=== PATIENT | male | born 1950 | race Caucasian/White ===

== ENCOUNTER 2019-05-10 12:16 | Inpatient (IN) | payer MEDICARE ==
[2019-05-10] MEDS ORDERED: VANCOMYCIN IV PER PHARMACY 1 EACH MISC MISCELLANE PRN (12:34)
[2019-05-10] MEDS ORDERED: cefTRIAXone IN SWFI 1,000 MG/10 ML SYRINGE IVP STA (12:34)
[2019-05-10] MEDS ORDERED: VANCOMYCIN 1,750 MG in SODIUM CHLORIDE 0.9% 500 ML 500 ML IVPB STA (12:38)
--- NOTE | 2019-05-10 12:38 | ED ---
General Adult HPI - General Chief complaint: Extremity Injury, Lower Stated complaint: Foot Infection Time Seen by Provider: 05/10/19 12:20 Source: patient, RN notes reviewed, old records reviewed Mode of arrival: ambulatory Limitations: no limitations - History of Present Illness Initial comments: This is a 69-year-old male who has a past medical history significant for diabetes and wound of the left foot which was amputated years ago at the mid foot. Patient comes in today stating his wound has opened up again and the foot and is getting progressively worse his primary medical care doctor sent him in today because he has surrounding cellulitis and he is also worried about osteomyelitis. Patient denies any fever chills per patient denies any other problems today. - Related Data Home Medications Medication Instructions Recorded Confirmed Aspirin 1 tab PO DAILY 05/05/15 05/05/15 glyBURIDE [Diabeta] 1 tab PO DAILY 05/05/15 05/05/15 metFORMIN HCL [Glucophage] 1 tab PO BID 05/05/15 05/05/15 Allergies Allergy/AdvReac Type Severity Reaction Status Date / Time No Known Allergies Allergy Verified 05/10/19 14:38 Review of Systems ROS Statement: Those systems with pertinent positive or pertinent negative responses have been documented in the HPI. ROS Other: All systems not noted in ROS Statement are negative. Past Medical History Past Medical History: Dementia, Hyperlipidemia, Hypertension, Myocardial Infarction ([place]) History of Any Multi-Drug Resistant Organisms: MRSA Date of last positivie culture/infection: L foot MDRO Source:: 2015 Past Surgical History: Appendectomy, Coronary Bypass/CABG, Hernia Repair Additional Past Surgical History / Comment(s): L foot partial amputation Past Psychological History: No Psychological Hx Reported Smoking Status: Former smoker Past Alcohol Use History: None Reported Past Drug Use History: None Reported General Exam - General Exam Comments Initial Comments: GENERAL: Patient is well-developed and well-nourished. Patient is nontoxic and well- hydrated and is in no acute distress. ENT: Neck is soft and supple. No significant lymphadenopathy is noted. Oropharynx is clear. Moist mucous membranes. Neck has full range of motion without eliciting any pain. EYES: The sclera were anicteric and conjunctiva were pink and moist. Extraocular movements were intact and pupils were equal round and reactive to light. Eyelids were unremarkable. PULMONARY: Unlabored respirations. Good breath sounds bilaterally. CARDIOVASCULAR: There is a regular rate and rhythm without any murmurs gallops or rubs. SKIN: Patient has an open wound on the left foot is very malodorous and surrounding cellulitis NEUROLOGIC: Patient is alert and oriented x3. Cranial nerves II through XII are grossly intact. MUSCULOSKELETAL: Amputation of the left midfoot LYMPHATICS: No significant lymphadenopathy is noted PSYCHIATRIC: Normal psychiatric evaluation. Limitations: no limitations Course Vital Signs 05/10/19 12:18 Temperature 97.7 F Pulse Rate 81 Respiratory 18 Rate Blood Pressure 130/78 O2 Sat by Pulse 96 Oximetry Medical Decision Making - Medical Decision Making Patient's x-ray of the foot shows swelling in the soft tissue and osteomyelitis cannot be ruled out. Patient was started on Rocephin and vancomycin in the emergency department. Dr. Castrejon admitted the patient I wrote admitting her seconds in her vancomycin as well as consulted vascular and infectious disease. - Lab Data Result diagrams: 05/10/19 12:44 05/10/19 12:44 Lab Results 05/10/19 05/10/19 05/10/19 Range/Units 12:44 12:44 12:44 WBC 8.5 (3.8-10.6) k/uL RBC 5.18 (4.30-5.90) m/uL Hgb 14.0 (13.0-17.5) gm/dL Hct 44.5 (39.0-53.0) % MCV 85.9 (80.0-100.0) fL MCH 27.1 (25.0-35.0) pg MCHC 31.5 (31.0-37.0) g/dL RDW 13.6 (11.5-15.5) % Plt Count 347 (150-450) k/uL Neutrophils % (Manual) 80 % Lymphocytes % (Manual) 7 % Monocytes % (Manual) 11 % Eosinophils % (Manual) 1 % Metamyelocytes % 2 % Myelocytes % 1 % Neutrophils # (Manual) 6.80 (1.3-7.7) k/uL Lymphocytes # (Manual) 0.60 L (1.0-4.8) k/uL Monocytes # (Manual) 0.94 (0-1.0) k/uL Eosinophils # (Manual) 0.09 (0-0.7) k/uL Metamyelocytes # (Man) 0.17 H (0) k/uL Myelocytes # (Manual) 0.09 H (0) k/uL Nucleated RBCs 0 (0-0) /100 WBC Manual Slide Review Performed Hypochromasia Slight Poikilocytosis (manual Present Sodium 136 L (137-145) mmol/L Potassium 4.7 (3.5-5.1) mmol/L Chloride 106 (98-107) mmol/L Carbon Dioxide 18 L (22-30) mmol/L Anion Gap 12 mmol/L BUN 21 H (9-20) mg/dL Creatinine 0.73 (0.66-1.25) mg/dL Est GFR (CKD-EPI)AfAm >90 (>60 ml/min/1.73 sqM) Est GFR (CKD-EPI)NonAf >90 (>60 ml/min/1.73 sqM) Glucose 187 H (74-99) mg/dL Plasma Lactic Acid Christos 1.5 (0.7-2.0) mmol/L Calcium 9.6 (8.4-10.2) mg/dL Total Bilirubin 0.4 (0.2-1.3) mg/dL AST 35 (17-59) U/L ALT 42 (4-49) U/L Alkaline Phosphatase 104 (38-126) U/L Total Protein 6.9 (6.3-8.2) g/dL Albumin 3.3 L (3.5-5.0) g/dL Disposition Clinical Impression: Infected wound, Osteomyelitis of foot Disposition: ADMITTED IP TO THIS HOSP Referrals: Marquis Marr MD [Primary Care Provider] - 1-2 days Time of Disposition: 14:45
[2019-05-10 13:28] LABS: HCT 44.5 % (39.0-53.0); Hypochromasia Slight; MCH 27.1 pg (25.0-35.0); MCHC 31.5 g/dL (31.0-37.0); MCV 85.9 fL (80.0-100.0); Mean Platelet Volume 8.6; Platelet Count 347 k/uL (150-450); RBC 5.18 m/uL (4.30-5.90); RDW 13.6 % (11.5-15.5); WBC 8.5 k/uL (3.8-10.6)
[2019-05-10 13:43] LABS: ALT 42 U/L (4-49); AST 35 U/L (17-59); African American GFR (CKD) >90 (>60 ml/min/1.73 sqM); Albumin 3.3 g/dL (3.5-5.0); Alkaline Phosphatase 104 U/L (38-126); Anion Gap 12 mmol/L; Blood Urea Nitrogen 21 mg/dL (9-20); Calcium 9.6 mg/dL (8.4-10.2); Carbon Dioxide 18 mmol/L (22-30); Chloride 106 mmol/L (98-107); Glucose 187 mg/dL (74-99); Non-African American GFR(CKD) >90 (>60 ml/min/1.73 sqM); Potassium 4.7 mmol/L (3.5-5.1); Sodium 136 mmol/L (137-145); Total Bilirubin 0.4 mg/dL (0.2-1.3); Total Protein 6.9 g/dL (6.3-8.2)
[2019-05-10 13:51] LABS: Eosinophils # (M) 0.09 k/uL (0-0.7); Metamyelocytes # (M) 0.17 k/uL (0); Metamyelocytes % 2 %; Monocytes # (M) 0.94 k/uL (0-1.0); Myelocytes # (M) 0.09 k/uL (0); Myelocytes % 1 %; Neutrophils % (M) 80 %; Nucleated Red Blood Cells 0 /100 WBC (0-0); Total Cells Counted 200
[2019-05-10 13:52] LABS: Poikilocytosis (M) Present
--- NOTE | 2019-05-10 13:52 | XR ---
Left foot HISTORY: Infection 3 views of the left foot correlated to prior exam 05/05/2015 There is been interval transmetatarsal amputation in the left foot, bone and soft tissue deformities are present. There is lucency in the soft tissues as well as surgical clip. No evident periostitis. S oft tissue calcification at the leg distally likely due to vascular etiology. There is a plantar calc aneal spur. 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 Focal calcifications within the soft tissues ar e noted at the level of the amputation. IMPRESSION: Correlate for cellulitis, difficult to exclude osteomyelitis, myositis, abscess. Consider vascular surgery consult.
[2019-05-10] MEDS ORDERED: SODIUM CHLORIDE 0.9% 1,000 ML IV ONE (14:45)
[2019-05-10 17:18] LABS: Glucose,Whole Blood 138 mg/dL (75-99)
[2019-05-10] MEDS: AMPICILLIN-SULBACTAM 3 GM in SODIUM CHLORIDE 0.9% 100 ML IVPB SCH (17:52)
--- NOTE | 2019-05-10 19:53 | CONS ---
DATE OF CONSULTATION: 05/10/2019 This is a 69-year-old gentleman. I was consulted for evaluation of left foot post transmetatarsal amputation which was done 4 years ago at [facility]. The patient has had an open wound to the plantar aspect of the stump with a large wound and exposed muscles with drainage of pus since February. He has been taking care of this wound at home by himself. MEDICAL HISTORY: History of diabetes. Bladder cancer; had chemoradiation. The patient also has a history of hypertension. SURGICAL HISTORY: Patient had a transmetatarsal amputation done of the left foot at [facility] about 4 years ago. He also had a CABG done in the past. PHYSICAL EXAMINATION: The patient was seen in his room. The patient was alert and oriented to time and place. NECK: Supple. No bruit appreciated. CHEST: Clear on auscultation. ABDOMEN: Soft. Femoral pulses present. Popliteals palpable. Posterior tibial pulses by the Doppler. The patient has a large wound on the plantar aspect of the left foot stump with exposed bone, and also the muscles are exposed, with drainage of pus. X-ray of the foot shows soft tissue swelling, and osteomyelitis cannot be ruled out. The patient is on IV antibiotic, under the care of Infectious Disease. I had a long discussion with this gentleman. The patient has a large wound on the plantar aspect of the foot which is not salvageable. Options were discussed. Most likely he will benefit from below-knee amputation and artificial prosthesis. Patient does not want to go this route. I will discuss with Dr. Thomas and Dr. Castrejon. MMODL / IJN: [id number] / MTDD
[2019-05-10] MEDS: metFORMIN 500 MG TAB PO SCH (21:04)
[2019-05-10] MEDS: ATORVASTATIN 40 MG TAB PO SCH (21:05)
[2019-05-10] MEDS: METOPROLOL TARTRATE 50 MG TAB PO SCH (21:05)
[2019-05-10] MEDS: ENOXAPARIN 40 MG/0.4 ML SYRINGE SQ SCH (21:07)
[2019-05-10] MEDS: VANCOMYCIN 1,500 MG in SODIUM CHLORIDE 0.9% 250 ML IVPB SCH (21:21)
--- NOTE | 2019-05-10 22:03 | P.HPIM ---
History of Present Illness H&P Date: 05/10/19 Chief Complaint: Left foot wound History of presenting complaint: This is a pleasant 69-year-old patient of Dr. marr. Chronic stable medical conditions include diabetes, hypertension, hyperlipidemia, coronary artery disease. Patient will work 25 years ago underwent left distal foot amputation what appeared to be for ischemia. Did also has a follow-up surgery in the same. Had been doing well patient does follow with Dr. Marr and for few weeks started having some infection in the stump. He was told to use peroxide dressings. Did improve some. For a week patient started having a fever and the stump started draining pus there is no pain. Decided to come to the ER. Consultations made to vascular surgery and infectious disease. Review of systems: GEN.: None EYES: None HEENT: None NECK: None RESPIRATORY: None CARDIOVASCULAR: None GASTROINTESTINAL: None GENITOURINARY: Chronic urinary frequency MUSCULOSKELETAL: None LYMPHATICS: None HEMATOLOGICAL: None PSYCHIATRY: None NEUROLOGICAL: Decreased sensation distally Past medical history to include: Diabetes, hypertension, hyperlipidemic, urinary frequency, coronary artery disease Social history: , retired this. Did smoke in the past Family history: Reviewed, noncontributory to presentation Physical examination: VITAL SIGNS: 97.7, 81, 18, 130/78, 96% on room air GENERAL: BMI 30.1, laying in bed, slightly anxious. EYES: Pupils equal. Conjunctiva normal. HEENT: External appearance of nose and ears normal, oral cavity grossly normal. NECK: JVD not raised; masses not palpable. HEART: First and second heart sounds are normal; no edema. LUNGS: Respiratory rate normal; clear to auscultation. ABDOMEN: Soft, nontender, liver spleen not palpable, no masses palpable. PSYCH: Alert and oriented x3; mood and affect normal. EXTREMITY: Wound of the left foot stump pictures in the chart, NEUROLOGICAL: Cranial nerves grossly intact; no facial asymmetry, power and sensation grossly intact. LYMPHATICS: No lymph nodes palpable in the axilla and neck INVESTIGATIONS, reviewed in the clinical context: White count 8.5 hemoglobin 14 platelets 347 potassium 4.7 creatinine 0.73 Assessment: -Left foot distal infection of the stump. Bone marrow exposed and tendons. This will be very difficult to treat medically. Consider osteomyelitis -Diabetes mellitus type 2 on oral hypoglycemic -Essential hypertension -Hyperlipidemia -Coronary artery disease history of bypass -Chronic urinary frequency from bladder dysfunction Plan: Consultations made to infectious disease and vascular surgery. Did discuss with Dr. Nath from vascular surgery. His opinion is amputation will be the only resort as conservative management will not be good enough for the wound to heal. We'll await input from ID. Patient at this point does not want to talk about any amputation. Accu-Cheks will be followed. Other home medications to be resumed. Patient started on IV Unasyn and vancomycin Past Medical History Past Medical History: Dementia, Diabetes Mellitus, Hyperlipidemia, Hypertension, Myocardial Infarction ([place]) Additional Past Medical History / Comment(s): bladder CA Last Myocardial Infarction Date:: Mar 2004 History of Any Multi-Drug Resistant Organisms: MRSA Date of last positivie culture/infection: L foot MDRO Source:: 2015 Past Surgical History: Appendectomy, Coronary Bypass/CABG, Hernia Repair Additional Past Surgical History / Comment(s): L foot partial amputation Past Psychological History: No Psychological Hx Reported Smoking Status: Former smoker Past Alcohol Use History: None Reported Past Drug Use History: None Reported Medications and Allergies Home Medications Medication Instructions Recorded Confirmed Type Aspirin 1 tab PO DAILY 05/05/15 05/10/19 History Atorvastatin [Lipitor] 40 mg PO HS 05/10/19 05/10/19 History Cinnamon Bark [Cinnamon] 1,000 mg PO BID 05/10/19 05/10/19 History Empagliflozin/Linagliptin 1 tab PO DAILY 05/10/19 05/10/19 History [Glyxambi 25 mg-5 mg Tablet] Famotidine 40 mg PO DAILY 05/10/19 05/10/19 History Isosorbide Mononitrate ER [Imdur] 30 mg PO DAILY 05/10/19 05/10/19 History Lisinopril [Zestril] 10 mg PO DAILY 05/10/19 05/10/19 History Metoprolol Tartrate [Lopressor] 50 mg PO BID 05/10/19 05/10/19 History amLODIPine [Norvasc] 10 mg PO DAILY 05/10/19 05/10/19 History glipiZIDE [Glucotrol] 5 mg PO AC-BRKFST 05/10/19 05/10/19 History metFORMIN HCL 1,000 mg PO BID 05/10/19 05/10/19 History Allergies Allergy/AdvReac Type Severity Reaction Status Date / Time No Known Allergies Allergy Verified 05/10/19 14:38 Physical Exam Vitals: Vital Signs Temp Pulse Pulse Resp BP BP Pulse Ox 05/10/19 16:08 97.7 F 78 18 130/65 96 05/10/19 15:24 20 05/10/19 15:00 78 18 105/58 97 05/10/19 14:00 76 18 104/56 97 05/10/19 12:18 97.7 F 81 18 130/78 96 Intake and Output 05/10/19 05/10/19 05/10/19 06:59 14:59 22:59 Other: Voiding Method Toilet Weight 95.254 kg 95.254 kg Results CBC & Chem 7: 05/10/19 12:44 05/10/19 12:44 Labs: Abnormal Lab Results - Last 24 Hours (Table) 05/10/19 05/10/19 05/10/19 Range/Units 12:44 12:44 17:16 Lymphocytes # (Manual) 0.60 L (1.0-4.8) k/uL Metamyelocytes # (Man) 0.17 H (0) k/uL Myelocytes # (Manual) 0.09 H (0) k/uL Sodium 136 L (137-145) mmol/L Carbon Dioxide 18 L (22-30) mmol/L BUN 21 H (9-20) mg/dL Glucose 187 H (74-99) mg/dL POC Glucose (mg/dL) 138 H (75-99) mg/dL Albumin 3.3 L (3.5-5.0) g/dL
--- NOTE | 2019-05-10 23:43 | P.CONS ---
History of Present Illness - Reason for Consult Consult date: 05/10/19 left diabetic foot infection Requesting physician: Mo Castrejon - Chief Complaint non healing wound to left foot x months - History of Present Illness Patient is a 69-year-old male with a past medical his significant for diabetes mellitus in this patient who did have a previous history of diabetic foot infection requiring left transmetatarsal amputation at [facility] patient apparently did develop a callus on the plantar aspect of his left foot that apparently fell off and the patient did develop a wound on the plantar aspect of the left foot that happened in February 2018 and the patient has been taking care of his wound at home however he was noticed to have a significant swelling and redness and some foul-smelling drainage patient was ev aluated by his primary care physician who sent the patient to the ER with concern for underlying osteomyelitis patient to have diabetic neuropathy has denies pain to the left foot wound area patient, patient was afebrile on presentation to the hospital his white count was normal patient did have x-rays of the left foot with concern for cellulitis abscess osteomyelitis not entirely excluded patient has been started on vancomycin he was admitted to the hospital infectious disease was consulted for further recommendation regarding antibiotic therapy Review of Systems Positive point has been mentioned in HPI rest of the systems are negative Past Medical History Past Medical History: Dementia, Diabetes Mellitus, Hyperlipidemia, Hypertension, Myocardial Infarction ([place]) Additional Past Medical History / Comment(s): bladder CA Last Myocardial Infarction Date:: Mar 2004 History of Any Multi-Drug Resistant Organisms: MRSA Year Discovered:: L foot MDRO Source:: 2015 Past Surgical History: Appendectomy, Coronary Bypass/CABG, Hernia Repair Additional Past Surgical History / Comment(s): L foot partial amputation Past Psychological History: No Psychological Hx Reported Smoking Status: Former smoker Past Alcohol Use History: None Reported Past Drug Use History: None Reported Medications and Allergies Home Medications Medication Instructions Recorded Confirmed Type Aspirin 1 tab PO DAILY 05/05/15 05/10/19 History Atorvastatin [Lipitor] 40 mg PO HS 05/10/19 05/10/19 History Cinnamon Bark [Cinnamon] 1,000 mg PO BID 05/10/19 05/10/19 History Empagliflozin/Linagliptin 1 tab PO DAILY 05/10/19 05/10/19 History [Glyxambi 25 mg-5 mg Tablet] Famotidine 40 mg PO DAILY 05/10/19 05/10/19 History Isosorbide Mononitrate ER [Imdur] 30 mg PO DAILY 05/10/19 05/10/19 History Lisinopril [Zestril] 10 mg PO DAILY 05/10/19 05/10/19 History Metoprolol Tartrate [Lopressor] 50 mg PO BID 05/10/19 05/10/19 History amLODIPine [Norvasc] 10 mg PO DAILY 05/10/19 05/10/19 History glipiZIDE [Glucotrol] 5 mg PO AC-BRKFST 05/10/19 05/10/19 History metFORMIN HCL 1,000 mg PO BID 05/10/19 05/10/19 History Allergies Allergy/AdvReac Type Severity Reaction Status Date / Time No Known Allergies Allergy Verified 05/10/19 14:38 Physical Exam Vitals: Vital Signs Temp Pulse Pulse Resp BP BP Pulse Ox 05/10/19 16:08 97.7 F 78 18 130/65 96 05/10/19 15:24 20 05/10/19 15:00 78 18 105/58 97 05/10/19 14:00 76 18 104/56 97 05/10/19 12:18 97.7 F 81 18 130/78 96 Intake and Output 05/10/19 05/10/19 05/10/19 06:59 14:59 22:59 Other: Weight 95.254 kg 95.254 kg GENERAL DESCRIPTION: Elderly male lying in bed, no distress. No tachypnea or accessory muscle of respiration use. HEENT: Shows Pallor , no scleral icterus. Oral mucous membrane is dry. NECK: Trachea central, no thyromegaly. LUNGS: Unlabored breathing. Clear to auscultation anteriorly. No wheeze or crackle. HEART: S1, S2, regular rate and rhythm. ABDOMEN: Soft, no tenderness , guarding or rigidity EXTREMITIES: Left foot plantar aspect at the site of his transmetatarsal deep wound with slough tissue foul-smelling drainage with surrounding swelling and redness. SKIN: No rash, no masses palpable. NEUROLOGICAL: The patient is awake, alert, oriented x3, mood and affect normal. Results CBC & Chem 7: 05/10/19 12:44 05/10/19 12:44 Labs: Abnormal Lab Results - Last 24 Hours (Table) 05/10/19 05/10/19 Range/Units 12:44 12:44 Lymphocytes # (Manual) 0.60 L (1.0-4.8) k/uL Metamyelocytes # (Man) 0.17 H (0) k/uL Myelocytes # (Manual) 0.09 H (0) k/uL Sodium 136 L (137-145) mmol/L Carbon Dioxide 18 L (22-30) mmol/L BUN 21 H (9-20) mg/dL Glucose 187 H (74-99) mg/dL Albumin 3.3 L (3.5-5.0) g/dL Assessment and Plan Assessment: 1-patient with extensive left diabetic foot infection in this patient with a previous history of transmetatarsal amputation of the left foot because of diabetic foot infection now presenting with a wound that has been there for more than 2 months now now with significant worsening with exposure of the muscle and significant slough tissue will need to cover for both gram-positive as well as gram-negative bacteria (1) Diabetic foot Current Visit: Yes Status: Acute Code(s): E11.8 - TYPE 2 DIABETES MELLITUS WITH UNSPECIFIED COMPLICATIONS SNOMED Code(s): 531379610 (2) Infected wound Current Visit: Yes Status: Acute Code(s): T14.8XXA - OTHER INJURY OF UNSPECIFIED BODY REGION, INITIAL ENCOUNTER; L08.9 - LOCAL INFECTION OF THE SKIN AND SUBCUTANEOUS TISSUE, UNSP SNOMED Code(s): 80680772 (3) Osteomyelitis of foot Current Visit: Yes Status: Acute Code(s): M86.9 - OSTEOMYELITIS, UNSPECIFIED SNOMED Code(s): 58969886 Plan: 1-vascular surgery evaluation for debridement of this wound and deep culture, who have suggested below the knee amputation with the patient is refusing 2-vancomycin pharmacy to dose her with a target trough of 15 while watching her kidney function and Vanco trough closely. 3-Unasyn 3 g every 6 hours 4-local wound care with meta honey followed by moist dressing We will follow on clinical condition and cultures to further adjust medication if needed Thank you for this consultation we will follow the patient along with you Time with Patient: Greater than 30
[2019-05-11] MEDS: AMPICILLIN-SULBACTAM 3 GM in SODIUM CHLORIDE 0.9% 100 ML IVPB SCH ×5 (00:13→23:03)
[2019-05-11] MEDS: VANCOMYCIN 1,500 MG in SODIUM CHLORIDE 0.9% 250 ML IVPB SCH ×3 (05:40→20:52)
[2019-05-11 07:01] LABS: Glucose,Whole Blood 130 mg/dL (75-99)
[2019-05-11] MEDS: metFORMIN 500 MG TAB PO SCH ×2 (07:47→17:18)
[2019-05-11] MEDS: glipiZIDE 5 MG TAB PO SCH (07:47)
[2019-05-11] MEDS: EMPAGLIFLOZIN PO SCH (07:48)
[2019-05-11] MEDS: ENOXAPARIN 40 MG/0.4 ML SYRINGE SQ SCH (07:48)
[2019-05-11] MEDS: amLODIPine 10 MG TAB PO SCH (07:48)
[2019-05-11] MEDS: LISINOPRIL 10 MG TAB PO SCH (07:48)
[2019-05-11] MEDS: ASPIRIN 81 MG PO SCH (07:48)
[2019-05-11] MEDS: ISOSORBIDE MONONITRATE ER 30 MG TAB.ER.24H PO SCH (07:48)
[2019-05-11] MEDS: LINAGLIPTIN PO SCH (07:48)
[2019-05-11] MEDS: FAMOTIDINE 20 MG TAB PO SCH (07:48)
[2019-05-11] MEDS: METOPROLOL TARTRATE 50 MG TAB PO SCH ×3 (07:49→20:52)
[2019-05-11 11:46] LABS: Glucose,Whole Blood 133 mg/dL (75-99)
[2019-05-11 16:37] LABS: Glucose,Whole Blood 132 mg/dL (75-99)
--- NOTE | 2019-05-11 20:03 | P.PN ---
Progress Note - Text Progress Note Date: 05/11/19 Chief Complaint: Left foot wound History of presenting complaint: This is a pleasant 69-year-old patient of Dr. marr. Chronic stable medical conditions include diabetes, hypertension, hyperlipidemia, coronary artery disease. Patient will work 25 years ago underwent left distal foot amputation what appeared to be for ischemia. Did also has a follow-up surgery in the same. Had been doing well patient does follow with Dr. Marr and for few weeks started having some infection in the stump. He was told to use peroxide dressings. Did improve some. For a week patient started having a fever and the stump started draining pus there is no pain. Decided to come to the ER. Consultations made to vascular surgery and infectious disease. Admitted with-acute osteomyelitis of the left foot stump, and a diabetic foot, surrounding cellulitis. Was recommended amputation by surgery but patient refused. Started on vancomycin and IV Unasyn. Local med= honey treatment. Today-laying in bed. No new issues. Debridement scheduled for tomorrow. Getting IV antibiotics. Tolerated diet. Had a bowel movement. Review of systems: Was done for constitutional, cardiovascular, GI, pulmonary. relevant finding as above Active Medications Amlodipine Besylate (Norvasc) 10 mg PO DAILY [facility] Last Admin: 05/11/19 07:48 Dose: Not Given Documented by: Aspirin (Aspirin) 81 mg PO DAILY [facility] Last Admin: 05/11/19 07:48 Dose: Not Given Documented by: Atorvastatin Calcium (Lipitor) 40 mg PO HS [facility] Last Admin: 05/10/19 21:05 Dose: 40 mg Documented by: Enoxaparin Sodium (Lovenox) 40 mg SQ DAILY [facility] Last Admin: 05/11/19 07:48 Dose: Not Given Documented by: Famotidine (Pepcid) 40 mg PO DAILY [facility] Last Admin: 05/11/19 07:48 Dose: Not Given Documented by: Glipizide (Glucotrol) 5 mg PO -BRKFST [facility] Last Admin: 05/11/19 07:47 Dose: Not Given Documented by: Vancomycin HCl 1,500 mg/ (Sodium Chloride) 250 mls @ 125 mls/hr IVPB Q8H [facility] Last Admin: 05/11/19 14:28 Dose: 125 mls/hr Documented by: Ampicillin Sodium/Sulbactam (Sodium 3 gm/ Sodium Chloride) 100 mls @ 200 mls/hr IVPB Q6HR [facility] Last Admin: 05/11/19 17:18 Dose: 200 mls/hr Documented by: Insulin Aspart (Novolog) 0 unit SQ AC-TID [facility]; Protocol Isosorbide Mononitrate (Imdur) 30 mg PO DAILY [facility] Last Admin: 05/11/19 07:48 Dose: Not Given Documented by: Lisinopril (Zestril) 10 mg PO DAILY [facility] Last Admin: 05/11/19 07:48 Dose: Not Given Documented by: Metformin HCl (Glucophage) 1,000 mg PO BID-W/MEALS [facility] Last Admin: 05/11/19 17:18 Dose: 1,000 mg Documented by: Metoprolol Tartrate (Lopressor) 50 mg PO BID [facility] Last Admin: 05/11/19 10:03 Dose: 50 mg Documented by: Miscellaneous Information (Vancomycin Trough Due) 0 each MISCELLANE DIRECTED ONE Stop: 05/12/19 05:01 Non-Formulary Medication (Empagliflozin/Linagliptin [Glyxambi 25 Mg-5 Mg Tablet]) 1 tab PO DAILY [facility] Last Admin: 05/11/19 07:48 Dose: Not Given Documented by: Physical examination: VITAL SIGNS: 98.1, 76, 18, 131/67, 96% on room air GENERAL: BMI 30.1, laying in bed, comfortable EYES: Pupils equal. Conjunctiva normal. HEENT: External appearance of nose and ears normal, oral cavity grossly normal. NECK: JVD not raised; masses not palpable. HEART: First and second heart sounds are normal; no edema. LUNGS: Respiratory rate normal; clear to auscultation. ABDOMEN: Soft, nontender, liver spleen not palpable, no masses palpable. PSYCH: Alert and oriented x3; mood and affect normal. EXTREMITY: Wound of the left foot stump pictures in the chart, INVESTIGATIONS, reviewed in the clinical context: Accu-Cheks noted Previous testing White count 8.5 hemoglobin 14 platelets 347 potassium 4.7 creatinine 0.73 Assessment: -Acute osteomyelitis-Left foot distal infection of the stump. Bone tendons exposed.-Patient refused amputation -Diabetes mellitus type 2 on oral hypoglycemic -Essential hypertension -Hyperlipidemia -Coronary artery disease history of bypass -Chronic urinary frequency from bladder dysfunction Plan: Care was discussed with the patient. Patient is on IV Unasyn and vancomycin. Local treatment with med honey. Debridement tomorrow.
[2019-05-11] MEDS: ATORVASTATIN 40 MG TAB PO SCH (20:52)
[2019-05-11] MEDS: SODIUM BICARBONATE TAB 650 MG TAB PO SCH (20:53)
--- NOTE | 2019-05-11 20:56 | PN ---
PROGRESS NOTE DATE OF SERVICE: 05/11/2019 REASON FOR FOLLOWUP: Left diabetic foot infection. INTERVAL HISTORY: The patient is currently afebrile. The patient has been breathing comfortably. Denies having any chest pain or cough. No nausea. No vomiting. No abdominal pain or pain to the left foot area. PHYSICAL EXAMINATION: Blood pressure is 131/67 with a pulse of 76, temperature 98.1. He is 96% on room air. General description is an elderly male lying in bed in no distress. RESPIRATORY SYSTEM: Unlabored breathing. Clear to auscultation anteriorly. HEART: S1, S2. Regular rate and rhythm. ABDOMEN: Soft. No tenderness. Left foot is currently dressed up. No obvious drainage on the dressing. LABS: Hemoglobin is 14, white count of 8.5. BUN of 21, creatinine 0.73. DIAGNOSTIC IMPRESSION AND PLAN: Patient with left diabetic foot infection with concern for underlying osteomyelitis. The patient is currently covered with Unasyn and vancomycin; to continue while waiting for surgical debridement and deep cultures. Monitor his clinical course closely. MMODL / IJN: [id number] /
[2019-05-11] MEDS: INSULIN ASPART (NovoLOG) 100 UNIT/ML VIAL SQ SCH (21:02)
[2019-05-11 21:03] LABS: Glucose,Whole Blood 176 mg/dL (75-99)
[2019-05-12 04:48] LABS: HCT 40.1 % (39.0-53.0); HGB 12.6 gm/dL (13.0-17.5); Hypochromasia Slight; MCHC 31.4 g/dL (31.0-37.0); MCV 86.2 fL (80.0-100.0); Mean Platelet Volume 8.4; Platelet Count 273 k/uL (150-450); RBC 4.65 m/uL (4.30-5.90); RDW 13.6 % (11.5-15.5); WBC 8.1 k/uL (3.8-10.6)
[2019-05-12 04:59] LABS: African American GFR (CKD) >90 (>60 ml/min/1.73 sqM); Anion Gap 7 mmol/L; Blood Urea Nitrogen 12 mg/dL (9-20); Calcium 8.4 mg/dL (8.4-10.2); Carbon Dioxide 20 mmol/L (22-30); Chloride 108 mmol/L (98-107); Glucose 137 mg/dL (74-99); Non-African American GFR(CKD) >90 (>60 ml/min/1.73 sqM); Potassium 3.8 mmol/L (3.5-5.1); Sodium 135 mmol/L (137-145)
[2019-05-12] MEDS ORDERED: VANCOMYCIN TROUGH DUE 1 EACH MISC MISCELLANE ONE (05:00)
[2019-05-12] MEDS: AMPICILLIN-SULBACTAM 3 GM in SODIUM CHLORIDE 0.9% 100 ML IVPB SCH ×3 (05:06→17:06)
[2019-05-12] MEDS: VANCOMYCIN 1,500 MG in SODIUM CHLORIDE 0.9% 250 ML IVPB SCH ×2 (05:42→14:45)
[2019-05-12 06:58] LABS: Glucose,Whole Blood 128 mg/dL (75-99)
[2019-05-12] MEDS: INSULIN ASPART (NovoLOG) 100 UNIT/ML VIAL SQ SCH ×3 (07:02→17:11)
[2019-05-12] MEDS: LISINOPRIL 10 MG TAB PO SCH (08:24)
[2019-05-12] MEDS: ISOSORBIDE MONONITRATE ER 30 MG TAB.ER.24H PO SCH (08:24)
[2019-05-12] MEDS: amLODIPine 10 MG TAB PO SCH (08:24)
[2019-05-12] MEDS: METOPROLOL TARTRATE 50 MG TAB PO SCH ×2 (08:25→20:19)
[2019-05-12] MEDS: metFORMIN 500 MG TAB PO SCH ×2 (08:27→17:06)
[2019-05-12] MEDS: glipiZIDE 5 MG TAB PO SCH (08:27)
[2019-05-12] MEDS: SODIUM BICARBONATE TAB 650 MG TAB PO SCH ×3 (08:28→20:19)
[2019-05-12] MEDS: ENOXAPARIN 40 MG/0.4 ML SYRINGE SQ SCH (08:28)
[2019-05-12] MEDS: EMPAGLIFLOZIN PO SCH (08:28)
[2019-05-12] MEDS: FAMOTIDINE 20 MG TAB PO SCH (08:28)
[2019-05-12] MEDS: LINAGLIPTIN PO SCH (08:28)
[2019-05-12] MEDS: ASPIRIN 81 MG PO SCH (08:28)
[2019-05-12 11:42] LABS: Glucose,Whole Blood 125 mg/dL (75-99)
[2019-05-12] MEDS ORDERED: IV FLUID CONTINUATION 700 ML IV ONE (12:43)
[2019-05-12] MEDS ORDERED: ONDANSETRON 4 MG/2 ML VIAL IVP ONE (12:52)
[2019-05-12] MEDS ORDERED: PROPOFOL 10 MG/ML 20 ML VIAL IV ONE (13:16)
[2019-05-12] MEDS ORDERED: fentaNYL (PF) 50 MCG/ML 2 ML AMP ONE (13:16)
[2019-05-12] MEDS ORDERED: MIDAZOLAM 2 MG/2 ML VIAL ONE (13:16)
[2019-05-12] MEDS ORDERED: KETAMINE 10 MG/ML 20 ML VIAL ONE (13:16)
[2019-05-12] MEDS ORDERED: LIDOCAINE 1% INJ 10MG/ML (20 ML MDV) SQ ONE (13:26)
[2019-05-12] MEDS ORDERED: SODIUM CHLORIDE 0.9% 500 ML 500 ML IV ONE (13:42)
--- NOTE | 2019-05-12 14:09 | PCN ---
PROCEDURE NOTE PREOPERATIVE DIAGNOSIS: Chronic wound, left foot, post transmetatarsal amputation plantar aspect. Measurement is 5 x 4 x 1 cm. PROCEDURE: This patient had a in the past. Patient had multiple surgeries done at [facility]. Patient has been admitted with chronic wound left foot plantar aspect with some cellulitis noted on the dorsum aspect of the foot. We had a discussion and options were discussed, below-knee amputation versus wound debridement and local wound care. The patient wants to go for local wound care. The patient brought to the operating room, left transmetatarsal foot was placed in supine position and prepped and drapes were applied in a sterile manner. IV sedation and 1% lidocaine plain infiltrated in the wound area. Using sharp knife, there was some devitalized tissue which was excised with sharp knife down to subcutaneous tissue. All the devitalized tissue was removed. There was some bleeding points which were electrocoagulated. After that, we irrigated the wound with peroxide and saline. Hydrofera Blue was applied to the wound. Dressing applied. Patient tolerated the procedure well. PLAN: Patient will go back to the floor. We will change the dressing every 48 hours. Prognosis is guarded. Patient understands. MMODL / IJN: [id number] /
--- NOTE | 2019-05-12 14:09 | P.PN ---
Progress Note - Text Progress Note Date: 05/12/19 Chief Complaint: Left foot wound History of presenting complaint: This is a pleasant 69-year-old patient of Dr. marr. Chronic stable medical conditions include diabetes, hypertension, hyperlipidemia, coronary artery disease. Patient will work 25 years ago underwent left distal foot amputation what appeared to be for ischemia. Did also has a follow-up surgery in the same. Had been doing well patient does follow with Dr. Marr and for few weeks started having some infection in the stump. He was told to use peroxide dressings. Did improve some. For a week patient started having a fever and the stump started draining pus there is no pain. Decided to come to the ER. Consultations made to vascular surgery and infectious disease. Admitted with-acute osteomyelitis of the left foot stump, and a diabetic foot, surrounding cellulitis. Was recommended amputation by surgery but patient refused. Started on vancomycin and IV Unasyn. Local med= honey treatment. Today-no new issues. Pending debridement this afternoon. Getting antibiotics. Review of systems: Was done for constitutional, cardiovascular, GI, pulmonary. relevant finding as above Active Medications Amlodipine Besylate (Norvasc) 10 mg PO DAILY [facility] Last Admin: 05/12/19 08:24 Dose: 10 mg Documented by: Aspirin (Aspirin) 81 mg PO DAILY [facility] Last Admin: 05/12/19 08:28 Dose: Not Given Documented by: Atorvastatin Calcium (Lipitor) 40 mg PO HS [facility] Last Admin: 05/11/19 20:52 Dose: 40 mg Documented by: Enoxaparin Sodium (Lovenox) 40 mg SQ DAILY [facility] Last Admin: 05/12/19 08:28 Dose: Not Given Documented by: Famotidine (Pepcid) 40 mg PO DAILY [facility] Last Admin: 05/12/19 08:28 Dose: Not Given Documented by: Glipizide (Glucotrol) 5 mg PO AC-BRKFST [facility] Last Admin: 05/12/19 08:27 Dose: Not Given Documented by: Vancomycin HCl 1,500 mg/ (Sodium Chloride) 250 mls @ 125 mls/hr IVPB Q8H [facility] Last Admin: 05/12/19 05:42 Dose: 125 mls/hr Documented by: Ampicillin Sodium/Sulbactam (Sodium 3 gm/ Sodium Chloride) 100 mls @ 200 mls/hr IVPB Q6HR [facility] Last Admin: 05/12/19 11:37 Dose: 200 mls/hr Documented by: Insulin Aspart (Novolog) 0 unit SQ AC-TID [facility]; Protocol Last Admin: 05/12/19 11:41 Dose: Not Given Documented by: Isosorbide Mononitrate (Imdur) 30 mg PO DAILY [facility] Last Admin: 05/12/19 08:24 Dose: 30 mg Documented by: Lisinopril (Zestril) 10 mg PO DAILY [facility] Last Admin: 05/12/19 08:24 Dose: 10 mg Documented by: Metformin HCl (Glucophage) 1,000 mg PO BID-W/MEALS [facility] Last Admin: 05/12/19 08:27 Dose: Not Given Documented by: Metoprolol Tartrate (Lopressor) 50 mg PO BID [facility] Last Admin: 05/12/19 08:25 Dose: 50 mg Documented by: Non-Formulary Medication (Empagliflozin/Linagliptin [Glyxambi 25 Mg-5 Mg Tablet]) 1 tab PO DAILY [facility] Last Admin: 05/12/19 08:28 Dose: Not Given Documented by: Sodium Bicarbonate (Sodium Bicarbonate Tab) 650 mg PO TID [facility] Last Admin: 05/12/19 08:28 Dose: Not Given Documented by: Physical examination: VITAL SIGNS: 98.2, 83, 18, 128/67, 95% on room air GENERAL: BMI 30.1, laying in bed, comfortable EYES: Pupils equal. Conjunctiva normal. HEENT: External appearance of nose and ears normal, oral cavity grossly normal. NECK: JVD not raised; masses not palpable. HEART: First and second heart sounds are normal; no edema. LUNGS: Respiratory rate normal; clear to auscultation. ABDOMEN: Soft, nontender, liver spleen not palpable, no masses palpable. PSYCH: Alert and oriented x3; mood and affect normal. EXTREMITY: Wound of the left foot stump pictures in the chart, INVESTIGATIONS, reviewed in the clinical context: White count 8.1 hemoglobin 12.6 potassium 3.8 creatinine 0.55 Previous testing White count 8.5 hemoglobin 14 platelets 347 potassium 4.7 creatinine 0.73 Assessment: -Acute osteomyelitis-Left foot distal infection of the stump. Bone tendons exposed.-Patient refused amputation-pending debridement today -Diabetes mellitus type 2 on oral hypoglycemic -Essential hypertension -Hyperlipidemia -Coronary artery disease history of bypass -Chronic urinary frequency from bladder dysfunction Plan: on IV Unasyn and vancomycin. Local treatment with med honey. Debridement- pending this afternoon
[2019-05-12 16:52] LABS: Glucose,Whole Blood 147 mg/dL (75-99)
[2019-05-12] MEDS: ATORVASTATIN 40 MG TAB PO SCH (20:19)
[2019-05-12 20:22] LABS: Glucose,Whole Blood 222 mg/dL (75-99)
--- NOTE | 2019-05-12 23:05 | PN ---
PROGRESS NOTE DATE OF SERVICE: 05/12/2019 REASON FOR FOLLOWUP: Left diabetic foot infection, concern for osteomyelitis. INTERVAL HISTORY: The patient is currently afebrile. The patient was taken to the OR, status post debridement of left foot. Apparently the wound is tracking down to the bone as per discussion with Vascular Surgery. The patient tolerated the procedure. No chest pain, shortness of breath or cough. No abdominal pain or diarrhea. PHYSICAL EXAMINATION: Blood pressure 132/64 with a pulse of 77, temperature 97.7. He is 97% on room air. General description is an elderly male lying in bed in no distress. RESPIRATORY SYSTEM: Unlabored breathing. Clear to auscultation anteriorly. HEART: S1, S2. Regular rate and rhythm. ABDOMEN: Soft. No tenderness. Left foot is currently dressed up. No obvious drainage on the dressing. LABS: Hemoglobin is 12.6, white count 8.1. BUN of 12, creatinine 0.55. Wound culture with group C strep. Anaerobic culture pending. DIAGNOSTIC IMPRESSION AND PLAN: Patient with left diabetic foot infection, chronic wound, with concern for underlying osteomyelitis. Patient is status post debridement of this wound. We are waiting for the OR culture to finalize. In view of the extensive wound, he will need IV antibiotic on discharge. Will continue Unasyn. Discontinue vancomycin, as no MRSA has been grown. Local care per Surgery. Continue with supportive care. MMODL / IJN: [id number] /
[2019-05-13] MEDS: AMPICILLIN-SULBACTAM 3 GM in SODIUM CHLORIDE 0.9% 100 ML IVPB SCH ×5 (00:16→23:39)
[2019-05-13 07:00] LABS: Glucose,Whole Blood 171 mg/dL (75-99)
[2019-05-13] MEDS: glipiZIDE 5 MG TAB PO SCH (07:29)
[2019-05-13] MEDS: metFORMIN 500 MG TAB PO SCH ×2 (07:29→17:12)
[2019-05-13] MEDS: ISOSORBIDE MONONITRATE ER 30 MG TAB.ER.24H PO SCH (07:29)
[2019-05-13] MEDS: LISINOPRIL 10 MG TAB PO SCH (07:29)
[2019-05-13] MEDS: METOPROLOL TARTRATE 50 MG TAB PO SCH ×2 (07:30→22:28)
[2019-05-13] MEDS: amLODIPine 10 MG TAB PO SCH (07:30)
[2019-05-13] MEDS: ASPIRIN 81 MG PO SCH (07:30)
[2019-05-13] MEDS: FAMOTIDINE 20 MG TAB PO SCH (07:30)
[2019-05-13] MEDS: INSULIN ASPART (NovoLOG) 100 UNIT/ML VIAL SQ SCH ×3 (07:31→15:40)
[2019-05-13] MEDS: ENOXAPARIN 40 MG/0.4 ML SYRINGE SQ SCH (07:37)
[2019-05-13] MEDS: EMPAGLIFLOZIN PO SCH (07:37)
[2019-05-13] MEDS: LINAGLIPTIN PO SCH (07:37)
[2019-05-13 08:06] LABS: African American GFR (CKD) >90 (>60 ml/min/1.73 sqM); Non-African American GFR(CKD) >90 (>60 ml/min/1.73 sqM)
[2019-05-13] MEDS: SODIUM BICARBONATE TAB 650 MG TAB PO SCH ×3 (11:20→22:29)
[2019-05-13 11:38] LABS: Glucose,Whole Blood 225 mg/dL (75-99)
[2019-05-13] MEDS ORDERED: LIDOCAINE 1% INJ 10MG/ML (20 ML MDV) SQ ONE (13:27)
--- NOTE | 2019-05-13 14:16 | P.PCN ---
Description of Procedure: 69-year-old gentleman, patient had a left transmetatarsal dictation done in the past patient came with large wound on his plantar aspect of the foot patient went for deep debridement and a deep culture we've been treating with local wound care and IV antibiotic tomorrow we will change the dressing
--- NOTE | 2019-05-13 14:18 | IR ---
EXAMINATION TYPE: IR cvc insert >=5 years DATE OF EXAM: 05/13/2019 COMPARISON: NONE CLINICAL HISTORY: Infection Needs long-term intravenous access for antibiotics. PROCEDURE: Hand hygiene obtained with soap and water and alcohol-based hand rub. After informed consent, the skin overlying the left brachial vein was localized with ultrasound and n oted to be compressible and patent. An ultrasound image was obtained and submitted on the patient's chart. The overlying skin was prepped and draped and Lidocaine was used for local anesthesia. A ski n dylan was made with a scalpel. Access was gained to the vein under ultrasound guidance with a 21 ga uge needle and a 0.018 inch wire was advanced. Access site was dilated with Peel-Away sheath and cat heter tailored to the appropriate length and advanced such that the distal tip is at the cavoatrial j unction. Spot image was obtained verifying placement. Catheter was fixed to the skin and a sterile dressing was placed following hemostasis. Catheter was aspirated and flushed with saline. Patient w as discharged in stable condition without complication. Maximal barrier technique is utilized. Ultra sound image is documented on the chart. Ultrasound used with sterile technique. Fluoro time and fluoroscopic images submitted to document procedure: 92 intraoperative C-arm images, 0.6 minutes fluoroscopy time IMPRESSION: STATUS POST ULTRASOUND AND FLUOROSCOPIC GUIDED PICC LINE PLACEMENT, READY FOR USE. THIS PROCEDURE WAS PERFORMED BY THE UNDERSIGNED.
[2019-05-13 17:10] LABS: Glucose,Whole Blood 222 mg/dL (75-99)
--- NOTE | 2019-05-13 17:45 | P.PN ---
Progress Note - Text Progress Note Date: 05/13/19 Chief Complaint: Left foot wound History of presenting complaint: This is a pleasant 69-year-old patient of Dr. marr. Chronic stable medical conditions include diabetes, hypertension, hyperlipidemia, coronary artery disease. Patient will work 25 years ago underwent left distal foot amputation what appeared to be for ischemia. Did also has a follow-up surgery in the same. Had been doing well patient does follow with Dr. Marr and for few weeks started having some infection in the stump. He was told to use peroxide dressings. Did improve some. For a week patient started having a fever and the stump started draining pus there is no pain. Decided to come to the ER. Consultations made to vascular surgery and infectious disease. Admitted with-acute osteomyelitis of the left foot stump, and a diabetic foot, surrounding cellulitis. Was recommended amputation by surgery but patient refused. Started on vancomycin and IV Unasyn. Local med= honey treatment. Patient had his foot debridement done on May [address] Nath. Today-Sitting up in chair. Pain control. No new issues. Tolerating a diet. Review of systems: Was done for constitutional, cardiovascular, GI, pulmonary. relevant finding as above Active Medications Amlodipine Besylate (Norvasc) 10 mg PO DAILY [facility] Last Admin: 05/13/19 07:30 Dose: 10 mg Documented by: Aspirin (Aspirin) 81 mg PO DAILY [facility] Last Admin: 05/13/19 07:30 Dose: 81 mg Documented by: Atorvastatin Calcium (Lipitor) 40 mg PO HS [facility] Last Admin: 05/12/19 20:19 Dose: 40 mg Documented by: Enoxaparin Sodium (Lovenox) 40 mg SQ DAILY [facility] Last Admin: 05/13/19 07:37 Dose: Not Given Documented by: Famotidine (Pepcid) 40 mg PO DAILY [facility] Last Admin: 05/13/19 07:30 Dose: 40 mg Documented by: Glipizide (Glucotrol) 5 mg PO AC-BRKFST [facility] Last Admin: 05/13/19 07:29 Dose: 5 mg Documented by: Ampicillin Sodium/Sulbactam (Sodium 3 gm/ Sodium Chloride) 100 mls @ 200 mls/hr IVPB Q6HR [facility] Last Admin: 05/13/19 17:18 Dose: 200 mls/hr Documented by: Insulin Aspart (Novolog) 0 unit SQ AC-TID [facility]; Protocol Last Admin: 05/13/19 15:40 Dose: Not Given Documented by: Isosorbide Mononitrate (Imdur) 30 mg PO DAILY [facility] Last Admin: 05/13/19 07:29 Dose: 30 mg Documented by: Lisinopril (Zestril) 10 mg PO DAILY [facility] Last Admin: 05/13/19 07:29 Dose: 10 mg Documented by: Metformin HCl (Glucophage) 1,000 mg PO BID-W/MEALS [facility] Last Admin: 05/13/19 17:12 Dose: 1,000 mg Documented by: Metoprolol Tartrate (Lopressor) 50 mg PO BID [facility] Last Admin: 05/13/19 07:30 Dose: 50 mg Documented by: Non-Formulary Medication (Empagliflozin/Linagliptin [Glyxambi 25 Mg-5 Mg Tablet]) 1 tab PO DAILY [facility] Last Admin: 05/13/19 07:37 Dose: Not Given Documented by: Sodium Bicarbonate (Sodium Bicarbonate Tab) 650 mg PO TID [facility] Last Admin: 05/13/19 15:37 Dose: 650 mg Documented by: Sodium Chloride (Saline Flush) 10 ml IV Q4HR PRN PRN Reason: PICC Line Sodium Chloride (Saline Flush) 10 ml IV WEEKLY [facility] Sodium Chloride (Saline Flush) 20 ml IV Q4HR PRN PRN Reason: PICC Line Physical examination: VITAL SIGNS: 97.4, 76, 20, 161/73, recent percent on room air GENERAL: Propped up in a recliner comfortable EYES: Pupils equal. Conjunctiva normal. HEENT: External appearance of nose and ears normal, oral cavity grossly normal. NECK: JVD not raised; masses not palpable. HEART: First and second heart sounds are normal; no edema. LUNGS: Respiratory rate normal; clear to auscultation. ABDOMEN: Soft, nontender, liver spleen not palpable, no masses palpable. PSYCH: Alert and oriented x3; mood and affect normal. EXTREMITY: Wound of the left foot stump pictures in the chart, INVESTIGATIONS, reviewed in the clinical context: Creatinine 0.53 Previous testing White count 8.5 hemoglobin 14 platelets 347 potassium 4.7 creatinine 0.73 Assessment: -Acute osteomyelitis-Left foot distal infection of the stump. Bone tendons exposed.-Patient refused amputation. status post debridement -Diabetes mellitus type 2 on oral hypoglycemic -Essential hypertension -Hyperlipidemia -Coronary artery disease history of bypass -Chronic urinary frequency from bladder dysfunction Plan: on IV Unasyn and vancomycin. PICC line ordered. Local treatment to continue. Discharge planning as per Dr. Nath and Dr. Avalos from [place].
[2019-05-13 20:09] LABS: Glucose,Whole Blood 219 mg/dL (75-99)
--- NOTE | 2019-05-13 22:06 | PN ---
PROGRESS NOTE DATE OF SERVICE: 05/13/2019 REASON FOR FOLLOWUP: Left diabetic foot infection with osteomyelitis. INTERVAL HISTORY: The patient is currently afebrile. The patient has been breathing comfortably. Denies having any chest pain or shortness of breath or cough. No nausea, vomiting. No abdominal pain or pain to the left foot area. PHYSICAL EXAMINATION: Blood pressure 130/62 with a pulse of 68, temperature 97.9. He is 96% on room air. General description is an elderly male lying in bed in no distress. RESPIRATORY SYSTEM: Unlabored breathing. Clear to auscultation anteriorly. HEART: S1, S2. Regular rate and rhythm. ABDOMEN: Soft. No tenderness. Left foot is currently dressed up. No obvious drainage on the dressing. DIAGNOSTIC IMPRESSION AND PLAN: Patient with left diabetic foot infection with concern for underlying osteomyelitis in this patient who is status post surgical debridement. Will wait for the deep culture to finalize. The patient will likely need PICC line for outpatient IV antibiotic in the form of cefazolin 2 grams q.8 along with oral Flagyl. Local wound care per Vascular Surgery. Continue with supportive care. MMODL / IJN: [id number] /
[2019-05-13] MEDS: ATORVASTATIN 40 MG TAB PO SCH (22:29)
[2019-05-14] MEDS: AMPICILLIN-SULBACTAM 3 GM in SODIUM CHLORIDE 0.9% 100 ML IVPB SCH ×2 (05:47→13:25)
[2019-05-14 07:01] LABS: Glucose,Whole Blood 198 mg/dL (75-99)
[2019-05-14 07:39] VITALS: BP 146/67; PULSE 77; RESP 20; TEMP 98
[2019-05-14 07:57] LABS: African American GFR (CKD) >90 (>60 ml/min/1.73 sqM); Non-African American GFR(CKD) >90 (>60 ml/min/1.73 sqM)
[2019-05-14] MEDS: ASPIRIN 81 MG PO SCH (08:31)
[2019-05-14] MEDS: amLODIPine 10 MG TAB PO SCH (08:31)
[2019-05-14] MEDS: LISINOPRIL 10 MG TAB PO SCH (08:31)
[2019-05-14] MEDS: glipiZIDE 5 MG TAB PO SCH (08:31)
[2019-05-14] MEDS: metFORMIN 500 MG TAB PO SCH ×2 (08:31→17:02)
[2019-05-14] MEDS: METOPROLOL TARTRATE 50 MG TAB PO SCH (08:31)
[2019-05-14] MEDS: INSULIN ASPART (NovoLOG) 100 UNIT/ML VIAL SQ SCH ×3 (08:32→17:00)
[2019-05-14] MEDS: ENOXAPARIN 40 MG/0.4 ML SYRINGE SQ SCH (08:32)
[2019-05-14] MEDS: EMPAGLIFLOZIN PO SCH (08:32)
[2019-05-14] MEDS: FAMOTIDINE 20 MG TAB PO SCH (08:32)
[2019-05-14] MEDS: SODIUM BICARBONATE TAB 650 MG TAB PO SCH ×2 (08:32→16:59)
[2019-05-14] MEDS: ISOSORBIDE MONONITRATE ER 30 MG TAB.ER.24H PO SCH (08:32)
[2019-05-14] MEDS: LINAGLIPTIN PO SCH (08:32)
[2019-05-14 08:56] LABS: C Reactive Protein 27.3 mg/L (<10.0)
--- NOTE | 2019-05-14 10:35 | PN ---
PROGRESS NOTE This patient has a wound left foot plantar aspect, post transmetatarsal amputation. Today we have changed the dressing. No active bleeding or drainage noted. We changed the dressing with Jyotiney. The patient wants to go home, this okay with Dr. Thomas. I will follow in the wound clinic next Friday. MMJULIA / GONZALO: [id number] /
[2019-05-14 12:10] LABS: Glucose,Whole Blood 197 mg/dL (75-99)
--- NOTE | 2019-05-14 15:19 | PN ---
PROGRESS NOTE DATE OF SERVICE: 05/14/2019 REASON FOR FOLLOWUP: Left diabetic foot infection with osteomyelitis. INTERVAL HISTORY: The patient is currently afebrile, has been breathing comfortably. Denies pain to the left foot area. Denies having any chest pain, shortness of breath or cough. No abdominal pain, no diarrhea. PHYSICAL EXAMINATION: His blood pressure 146/67, pulse of 77, temperature 98, he is 97% on room air. General description is an elderly male, lying in bed in no distress. RESPIRATORY SYSTEM: Unlabored breathing, clear to auscultation anteriorly. HEART: S1, S2. Regular rate and rhythm. ABDOMEN: Soft, no tenderness. Left foot is currently dressed up, no obvious drainage on the dressing. LABS: Sedimentation rate of 62 with CRP 27.2. Wound culture with beta-hemolytic group C strep anaerobic gram-positive cocci. DIAGNOSTIC IMPRESSION AND PLAN: Patient with a left diabetic foot infection requiring extensive debridement with concern for possible underlying osteomyelitis. Recommend Unasyn 3 g q.8h. However, could not be done by the infusion company, antibiotic subsequent has been switched to cefazolin 2 g q.8 hours, oral Flagyl 500 mg q.8 hours for at least 4 weeks. Local care to continue per the Vascular Surgery and close outpatient followup. Questions and concerns were answered. MMODL / IJN: [id number] /
[2019-05-14 16:58] LABS: Hemoglobin A1C 9.2 % (4.0-6.0)
--- NOTE | 2019-05-14 22:35 | P.DS ---
Providers Date of admission: 05/10/19 14:45 Expected date of discharge: 05/14/19 Attending physician: Mo Castrejon Consults: 05/10/19 14:45 Consult Physician Urgent Consulting Provider: Arya Barrera Consult Reason/Comments: Infected left foot Do you want consulting provider notified?: Yes Consult Physician Urgent Consulting Provider: Fidel Thomas Consult Reason/Comments: Infected foot Do you want consulting provider notified?: Yes Primary care physician: Marquis Marr [facility] Course: Chief Complaint: Left foot wound History of presenting complaint: This is a pleasant 69-year-old patient of Dr. marr. Chronic stable medical conditions include diabetes, hypertension, hyperlipidemia, coronary artery disease. Patient will work 25 years ago underwent left distal foot amputation what appeared to be for ischemia. Did also has a follow-up surgery in the same. Had been doing well patient does follow with Dr. Marr and for few weeks starte d having some infection in the stump. He was told to use peroxide dressings. Did improve some. For a week patient started having a fever and the stump started draining pus there is no pain. Decided to come to the ER. Consultations made to vascular surgery and infectious disease. Admitted with-acute osteomyelitis of the left foot stump, and a diabetic foot, surrounding cellulitis. Was recommended amputation by surgery but patient refused. Started on vancomycin and IV Unasyn. Local med= honey treatment. Patient had his foot debridement done on May [address] Nath. Today-no pain in the affected foot. Home antibiotics and been arranged. Discussed with Dr. Avalos from [place]. consultation: Dr. Nath from vascular Dr. Thomas from [place] Physical examination: VITAL SIGNS: 98.3, 68, 20, 140-69, 95% on room air GENERAL:sitting up, comfortable EYES: Pupils equal. Conjunctiva normal. HEENT: External appearance of nose and ears normal, oral cavity grossly normal. NECK: JVD not raised; masses not palpable. HEART: First and second heart sounds are normal; no edema. LUNGS: Respiratory rate normal; clear to auscultation. ABDOMEN: Soft, nontender, liver spleen not palpable, no masses palpable. PSYCH: Alert and oriented x3; mood and affect normal. EXTREMITY: Wound of the left foot stump pictures in the chart, INVESTIGATIONS, reviewed in the clinical context: ESR 62, creatinine 0.53, HbA1c 9.2 CRP 27.3 Previous testing White count 8.5 hemoglobin 14 platelets 347 potassium 4.7 creatinine 0.73 Assessment: -Acute osteomyelitis-Left foot distal infection of the stump. Bone tendons exposed.-Patient refused amputation. status post debridement -Diabetes mellitus type 2 on oral hypoglycemic -Essential hypertension -Hyperlipidemia -Coronary artery disease history of bypass -Chronic urinary frequency from bladder dysfunction disposition: Home Patient Condition at Discharge: Undetermined Plan - Discharge Summary Discharge Rx Participant: Yes New Discharge Prescriptions: New metroNIDAZOLE [Flagyl] 500 mg PO Q8HR #42 tab Sodium Bicarbonate Tab 650 mg PO TID #30 tab Continue Aspirin 1 tab PO DAILY amLODIPine [Norvasc] 10 mg PO DAILY Atorvastatin [Lipitor] 40 mg PO HS Empagliflozin/Linagliptin [Glyxambi 25 mg-5 mg Tablet] 1 tab PO DAILY Famotidine 40 mg PO DAILY glipiZIDE [Glucotrol] 5 mg PO AC-BRKFST Isosorbide Mononitrate ER [Imdur] 30 mg PO DAILY Lisinopril [Zestril] 10 mg PO DAILY metFORMIN HCL 1,000 mg PO BID Metoprolol Tartrate [Lopressor] 50 mg PO BID No Action Cinnamon Bark [Cinnamon] 1,000 mg PO BID Discharge Medication List Aspirin 1 tab PO DAILY 05/05/15 [History] Atorvastatin [Lipitor] 40 mg PO HS 05/10/19 [History] Cinnamon Bark [Cinnamon] 1,000 mg PO BID 05/10/19 [History] Empagliflozin/Linagliptin [Glyxambi 25 mg-5 mg Tablet] 1 tab PO DAILY 05/10/19 [History] Famotidine 40 mg PO DAILY 05/10/19 [History] Isosorbide Mononitrate ER [Imdur] 30 mg PO DAILY 05/10/19 [History] Lisinopril [Zestril] 10 mg PO DAILY 05/10/19 [History] Metoprolol Tartrate [Lopressor] 50 mg PO BID 05/10/19 [History] amLODIPine [Norvasc] 10 mg PO DAILY 05/10/19 [History] glipiZIDE [Glucotrol] 5 mg PO AC-BRKFST 05/10/19 [History] metFORMIN HCL 1,000 mg PO BID 03/23/20 [History] Sodium Bicarbonate Tab 650 mg PO TID #30 tab 05/14/19 [Rx] metroNIDAZOLE [Flagyl] 500 mg PO Q8HR #42 tab 05/14/19 [Rx] Follow up Appointment(s)/Referral(s): wound clinic, [Other] - 05/17/19 Marquis Marr MD [Primary Care Provider] - 05/20/19 9:30 am [facility], [NON-STAFF] - As Needed Fidel Thomas MD [STAFF PHYSICIAN] - 05/24/19 2:45 pm Patient Instructions/Handouts: Wound Infection (DC) Activity/Diet/Wound Care/Special Instructions: Active Infusion: #[phone] cbc/bmp - 5 days Discharge Disposition: HOME SELF-CARE
== END 2019-05-14 18:30 | disposition home health service (06) | DRG 464 ==
LOC: EC 12:16 → 4SSUR 14:45
PROVIDERS: ADMIT Hospitalist; ATTEND Hospitalist
PROC: 0JBR0ZZ Excision of Left Foot Subcutaneous Tissue and Fascia, Open Approach (ICD-10-PCS; principal; 2019-05-12 10:20)
PROC: 02HV33Z Insertion of Infusion Device into Superior Vena Cava, Percutaneous Approach (ICD-10-PCS; 2019-05-13)
DX: T87.44 Infection of amputation stump, left lower extremity (principal); L03.116 Cellulitis of left lower limb; M86.172 Other acute osteomyelitis, left ankle and foot; E11.40 Type 2 diabetes mellitus with diabetic neuropathy, unspecified; E11.628 Type 2 diabetes mellitus with other skin complications; E11.69 Type 2 diabetes mellitus with other specified complication; F03.90 Unspecified dementia, unspecified severity, without behavioral disturbance, psychotic disturbance, mood disturbance, and anxiety; I10 Essential (primary) hypertension; I25.10 Atherosclerotic heart disease of native coronary artery without angina pectoris; E78.5 Hyperlipidemia, unspecified; N32.9 Bladder disorder, unspecified; I25.2 Old myocardial infarction; Z85.51 Personal history of malignant neoplasm of bladder; Z92.21 Personal history of antineoplastic chemotherapy; Z92.3 Personal history of irradiation; Z95.1 Presence of aortocoronary bypass graft; Z79.82 Long term (current) use of aspirin; Z79.84 Long term (current) use of oral hypoglycemic drugs; Z79.899 Other long term (current) drug therapy; Z53.29 Procedure and treatment not carried out because of patient's decision for other reasons; Z86.14 Personal history of Methicillin resistant Staphylococcus aureus infection; Z87.891 Personal history of nicotine dependence; Z89.432 Acquired absence of left foot; Z90.49 Acquired absence of other specified parts of digestive tract
CPT/HCPCS: 36415; 36573; 80048; 80053; 80202; 82565; 83036; 83605; 85025; 85027; 85652; 86140; 87040; 87070; 87075; 87077; 87186; 87205; 96365; 96366; 96375; 99285

== ENCOUNTER → 2022-08-23 | Outpatient (CLI) | payer MEDICARE ==
[2022-08-23 21:03] LABS: ALT 13 U/L (10-49); AST 9 U/L (14-35); Albumin 3.9 d/dL (3.8-4.9); Albumin/Globulin Ratio 1.34 Ratio (1.60-3.17); Alkaline Phosphatase 114 U/L (41-126); BUN/Creat Ratio 12.64 Ratio (12.00-20.00); Blood Urea Nitrogen 13.9 mg/dL (9.0-27.0); C-Peptide 6.26 ng/mL (0.81-3.85); Calcium 9.7 mg/dL (8.7-10.3); Carbon Dioxide 18.9 mmol/L (21.6-31.8); Chloride 103 mmol/L (96-109); Globulin 2.9 d/dL (1.6-3.3); Glucose 230 mg/dL (70-110); Potassium 4.7 mmol/L (3.5-5.5); Sodium 138 mmol/L (135-145); Total Bilirubin 0.5 mg/dL (0.3-1.2); Total Protein 6.8 d/dL (6.2-8.2)
== END | disposition home or self-care (01) ==
LOC: LABWHC1 13:26
PROVIDERS: ATTEND Internal Medicine Endocrinology, Diabetes & Metabolism
DX: E11.65 Type 2 diabetes mellitus with hyperglycemia (principal); N52.1 Erectile dysfunction due to diseases classified elsewhere
CPT/HCPCS: 36415; 80053; 84403; 84443; 84681

== ENCOUNTER 2023-07-07 17:29 | Inpatient (IN) | payer MEDICARE ==
--- NOTE | 2023-07-07 17:41 | ED ---
Extremity Problem HPI - General Source: patient, RN notes reviewed Mode of arrival: wheelchair Limitations: no limitations <Ligia Horner - Last Filed: 07/07/23 17:41> - General Source: RN notes reviewed, old records reviewed Limitations: no limitations - History of Present Illness MD Complaint: extremity pain, extremity swelling, other (Left foot with purulent drainage) -: days(s) Location: left History of Same: Yes -: Yes myalgia Radiation: none Severity scale (1-10): 4 Quality: stabbing Consistency: constant Improves with: nothing Worsens with: nothing Associated Symptoms: denies other symptoms <Timur Jeter - Last Filed: 07/12/23 22:42> - General Stated complaint: Left foot issues-Sent by Dr Chapin Seen by Provider: 07/07/23 17:41 - History of Present Illness Initial comments: Quick note: 74-year-old male presented to the ER with chief complaint of left foot wound. Patient reports for the past couple of weeks he has been having a wound on his left foot which has been being treated by a visiting nurse. Patient was sent here PCP for your IV antibiotics. (Ligia Horner) This is a 74-year-old male to ER for evaluation of left foot partial amputation coming in for evaluation of this possible osteomyelitis with significant swelling and purulent drainage of the left foot (Timur Jeter) - Related Data Home Medications Medication Instructions Recorded Confirmed Atorvastatin [Lipitor] 40 mg PO DAILY 05/10/19 07/08/23 Isosorbide Mononitrate ER [Imdur] 30 mg PO DAILY 05/10/19 07/08/23 Metoprolol Tartrate [Lopressor] 50 mg PO BID-W/MEALS 05/10/19 07/08/23 amLODIPine [Norvasc] 10 mg PO DAILY 05/10/19 07/08/23 lisinopriL [Zestril] 10 mg PO BID-W/MEALS 05/10/19 07/08/23 metFORMIN HCL [Glucophage] 1,000 mg PO BID-W/MEALS 05/10/19 07/08/23 Aspirin 81 mg PO DAILY 07/08/23 07/08/23 Famotidine [Pepcid] 40 mg PO DAILY 07/08/23 07/08/23 Finasteride [Proscar] 5 mg PO W/SUPPER 07/08/23 07/08/23 Tamsulosin HCl [Flomax] 0.4 mg PO BID-W/MEALS 07/08/23 07/08/23 glyBURIDE [Diabeta] 5 mg PO BID-W/MEALS 07/08/23 07/08/23 Allergies Allergy/AdvReac Type Severity Reaction Status Date / Time No Known Allergies Allergy Verified 07/08/23 08:09 Review of Systems ROS Other: All systems not noted in ROS Statement are negative. <Ligia Horner - Last Filed: 07/07/23 17:41> ROS Other: All systems not noted in ROS Statement are negative. <Timur Jeter - Last Filed: 07/12/23 22:42> ROS Statement: Those systems with pertinent positive or pertinent negative responses have been documented in the HPI. Past Medical History Past Medical History: Dementia, Diabetes Mellitus, Hyperlipidemia, Hypertension, Myocardial Infarction ([place]) Additional Past Medical History / Comment(s): bladder CA Last Myocardial Infarction Date:: Mar 2004 History of Any Multi-Drug Resistant Organisms: MRSA Date of last positivie culture/infection: L foot MDRO Source:: 2015 Past Surgical History: Appendectomy, Coronary Bypass/CABG, Hernia Repair Additional Past Surgical History / Comment(s): L foot partial amputation Past Psychological History: No Psychological Hx Reported Smoking Status: Former smoker Past Alcohol Use History: None Reported Past Drug Use History: None Reported <Ligia Horner - Last Filed: 07/07/23 17:41> General Exam Limitations: no limitations <Ligia Horner - Last Filed: 07/07/23 17:41> General appearance: alert, in no apparent distress Head exam: Present: atraumatic, normocephalic, normal inspection Eye exam: Present: normal appearance, PERRL, EOMI. Absent: scleral icterus, conjunctival injection, periorbital swelling ENT exam: Present: normal exam, mucous membranes moist Neck exam: Present: normal inspection. Absent: tenderness, meningismus, lymphadenopathy Respiratory exam: Present: normal lung sounds bilaterally. Absent: respiratory distress, wheezes, rales, rhonchi, stridor Cardiovascular Exam: Present: regular rate, normal rhythm, normal heart sounds. Absent: systolic murmur, diastolic murmur, rubs, gallop, clicks GI/Abdominal exam: Present: soft, normal bowel sounds. Absent: distended, tenderness, guarding, rebound, rigid Extremities exam: Present: normal inspection, full ROM, normal capillary refill. Absent: tenderness, pedal edema, joint swelling, calf tenderness Back exam: Present: normal inspection Neurological exam: Present: alert, oriented X3, CN II-XII intact Psychiatric exam: Present: normal affect, normal mood Skin exam: Present: warm, dry, intact, normal color. Absent: rash <Timur Jeter - Last Filed: 07/12/23 22:42> - General Exam Comments Initial Comments: Visual Physical Exam Vital signs reviewed General: Well-appearing, nontoxic, no acute distress. Head: Normocephalic, atraumatic Eyes: PERRLA, EOMI ENT: Airway patent Chest: Nonlabored breathing Skin: No visual rash, normal skin tone Neuro: Alert and oriented 3 Musculoskeletal: No gross abnormalities (Ligia Horner) Patient does have purulent drainage and discharge from left foot wound (Timur Jeter) Course <Timur Jeter - Last Filed: 07/12/23 22:42> Vital Signs 07/07/23 07/07/23 07/08/23 17:36 23:57 04:26 Temperature 98.0 F Pulse Rate 87 69 73 Respiratory 18 18 17 Rate Blood Pressure 127/68 125/75 128/63 O2 Sat by Pulse 98 96 96 Oximetry 07/08/23 07/08/23 07/08/23 06:12 10:41 17:52 Temperature 98.1 F Pulse Rate 66 81 80 Respiratory 17 18 18 Rate Blood Pressure 149/75 139/81 128/73 O2 Sat by Pulse 93 L 98 96 Oximetry - Reevaluation(s) Reevaluation #1: 07/07/23 22:31 Medical records reviewed (Timur Jeter) Reevaluation #2: 07/07/23 22:31 Patient symptoms unchanged (Timur Jeter) Reevaluation #3: 07/07/23 22:32 Patient informed of results and questions answered (Timur Jeter) Reevaluation #4: Was pt. sent in by a medical professional or institution (Dr., PA, POWER BRAKE OPERATOR, urgent care, hospital, or alf...) When possible be specific @ -no Did you speak to anyone other than the patient for history (EMS, parent, family, police, friend...)? What history was obtained from this source @ -no Did you review nursing and triage notes (agree or disagree)? Why? @ -agree Are old charts reviewed (outside hosp., previous admission, EMS record, old EKG, old radiological studies, urgent care reports/EKG's, alf records)? Report findings @ -yes Differential Diagnosis (chest pain, altered mental status, abdominal pain women, abdominal pain men, vaginal bleeding, weakness, fever, dyspnea, syncope, headache, dizziness, GI bleed, back pain, seizure, CVA, palpatations, mental health, musculoskeletal)? @ -prior EKG interpreted by me (3pts min.). @ -no X-rays interpreted by me (1pt min.). @ -yes negative for acute disease CT interpreted by me (1pt min.). @ -no U/S interpreted by me (1pt. min.). @ -no What testing was considered but not performed or refused? (CT, X-rays, U/S, labs)? Why? @ -none What meds were considered but not given or refused? Why? @ -none Did you discuss the management of the patient with other professionals (professionals i.e. ROYCE Nick, POWER BRAKE OPERATOR, lab, RT, psych nurse, social media assistant, undercar specialist, teacher, information assurance officer, child welfare caseworker)? Give summary @ -no Was smoking cessation discussed for >3mins.? @ -no Was critical care preformed (if so, how long)? @ -yes31 Were there social determinants of health that impacted care today? How? (Homelessness, low income, unemployed, alcoholism, drug addiction, transportation, low edu. Level, literacy, decrease access to med. care, group home, rehab)? @ -none Was there de-escalation of care discussed even if they declined (Discuss DNR or withdrawal of care, Hospice)? DNR status @ -no What co-morbidities impacted this encounter? (DM, HTN, Smoking, COPD, CAD, Cancer, CVA, ARF, Chemo, Hep., AIDS, mental health diagnosis, sleep apnea, morbid obesity)? @ -none Was patient admitted / discharged? Hospital course, mention meds given and route, prescriptions, significant lab abnormalities, going to OR and other pertinent info. @ - 73 male will be admitted for IV antibiotics secondary to severe left foot infection ulcer purulent draining ulcer of the left foot concern for osteomyelitis with prior amputation Admitted Undiagnosed new problem with uncertain prognosis? @ -no Drug Therapy requiring intensive monitoring for toxicity (Heparin, Nitro, Insulin, Cardizem)? @ -no Were any procedures done? @ -no Diagnosis/symptom? @ -Osteomyelitis foot Acute, or Chronic, or Acute on Chronic? @ -Acute Uncomplicated (without systemic symptoms) or Complicated (systemic symptoms)? @ -Complicated Side effects of treatment? @ -no Exacerbation, Progression, or Severe Exacerbation? @ -exacerbation Poses a threat to life or bodily function? How? (Chest pain, [place], MA, pneumonia, PE, COPD, DKA, ARF, appy, cholecystitis, CVA, Diverticulitis, Homicidal, Suicidal, threat to staff... and all critical care pts) @ -yes with significant for infection (Timur Jeter) - Consultations Consultation #1: Spoke with [facility] who agrees to admit this patient (Timur Jeter) Medical Decision Making <Ligia Horner - Last Filed: 07/07/23 17:41> - Lab Data Result diagrams: 07/11/23 06:33 07/12/23 15:28 - Radiology Data Radiology results: report reviewed (X-ray for concern for osteomyelitis), image reviewed <Timur Jeter - Last Filed: 07/12/23 22:42> - Medical Decision Making I performed the quick note portion of this chart. Electronically signed by Ligia Horner PA-C (Ligia Horner) 73 male will be admitted for IV antibiotics secondary to severe left foot infection ulcer purulent draining ulcer of the left foot concern for osteomyelitis with prior amputation (Timur Jeter) - Lab Data Lab Results 07/07/23 07/07/23 07/07/23 Range/Units 18:33 18:33 18:33 WBC 9.6 (3.8-10.6) k/uL RBC 4.30 (4.30-5.90) m/uL Hgb 11.7 L (13.0-17.5) gm/dL Hct 37.4 L (39.0-53.0) % MCV 87.0 (80.0-100.0) fL MCH 27.2 (25.0-35.0) pg MCHC 31.2 (31.0-37.0) g/dL RDW 17.9 H (11.5-15.5) % Plt Count 382 (150-450) k/uL MPV 8.6 Neutrophils % 65 % Lymphocytes % 22 % Monocytes % 6 % Eosinophils % 5 % Basophils % 1 % Neutrophils # 6.2 (1.3-7.7) k/uL Lymphocytes # 2.1 (1.0-4.8) k/uL Monocytes # 0.6 (0-1.0) k/uL Eosinophils # 0.4 (0-0.7) k/uL Basophils # 0.1 (0-0.2) k/uL Hypochromasia Moderate Anisocytosis Slight Sodium 135 L (137-145) mmol/L Potassium 5.3 H (3.5-5.1) mmol/L Chloride 105 (98-107) mmol/L Carbon Dioxide 24 (22-30) mmol/L Anion Gap 6 mmol/L BUN 17 (9-20) mg/dL Creatinine 0.69 (0.66-1.25) mg/dL Est GFR (CKD-EPI)AfAm >90 (>60 ml/min/1.73 sqM) Est GFR (CKD-EPI)NonAf >90 (>60 ml/min/1.73 sqM) Glucose 356 H (74-99) mg/dL Lactic Ac Sepsis Rflx Plasma Lactic Acid Christos 2.4 H* (0.7-2.0) mmol/L Calcium 9.0 (8.4-10.2) mg/dL Total Bilirubin 0.3 (0.2-1.3) mg/dL AST 13 L (17-59) U/L ALT 14 (4-49) U/L Alkaline Phosphatase 134 H (38-126) U/L Total Protein 6.6 (6.3-8.2) g/dL Albumin 3.4 L (3.5-5.0) g/dL 07/07/23 Range/Units 18:57 WBC (3.8-10.6) k/uL RBC (4.30-5.90) m/uL Hgb (13.0-17.5) gm/dL Hct (39.0-53.0) % MCV (80.0-100.0) fL MCH (25.0-35.0) pg MCHC (31.0-37.0) g/dL RDW (11.5-15.5) % Plt Count (150-450) k/uL MPV Neutrophils % % Lymphocytes % % Monocytes % % Eosinophils % % Basophils % % Neutrophils # (1.3-7.7) k/uL Lymphocytes # (1.0-4.8) k/uL Monocytes # (0-1.0) k/uL Eosinophils # (0-0.7) k/uL Basophils # (0-0.2) k/uL Hypochromasia Anisocytosis Sodium (137-145) mmol/L Potassium (3.5-5.1) mmol/L Chloride (98-107) mmol/L Carbon Dioxide (22-30) mmol/L Anion Gap mmol/L BUN (9-20) mg/dL Creatinine (0.66-1.25) mg/dL Est GFR (CKD-EPI)AfAm (>60 ml/min/1.73 sqM) Est GFR (CKD-EPI)NonAf (>60 ml/min/1.73 sqM) Glucose (74-99) mg/dL Lactic Ac Sepsis Rflx Y Plasma Lactic Acid Christos (0.7-2.0) mmol/L Calcium (8.4-10.2) mg/dL Total Bilirubin (0.2-1.3) mg/dL AST (17-59) U/L ALT (4-49) U/L Alkaline Phosphatase (38-126) U/L Total Protein (6.3-8.2) g/dL Albumin (3.5-5.0) g/dL Critical Care Time Critical Care Time: Yes Total Critical Care Time: 31 <Timur Jeter - Last Filed: 07/12/23 22:42> Disposition <Ligia Horner - Last Filed: 07/07/23 17:41> Is patient prescribed a controlled substance at d/c from ED?: No Time of Disposition: 22:00 <Timur Jeter - Last Filed: 07/12/23 22:42> Clinical Impression: Infected wound, Osteomyelitis of foot, Diabetic foot, Foot ulcer, left Disposition: ADMITTED IP TO THIS HOSP Condition: Serious
--- NOTE | 2023-07-07 18:38 | XR ---
EXAMINATION TYPE: XR foot complete LT DATE OF EXAM: 07/07/2023 COMPARISON: 04/23/2022 HISTORY: Open wound TECHNIQUE: 3 view left foot FINDINGS: Amputation of the forefoot. There is a surgical skin staple present. This appears unchanged in position from prior study. Consider possible foreign body. There appears to be some interval dege nerative change of the joint space of the talus and calcaneus with the mid foot. Small plantar calcan eal heel spur is noted. There may be loss of the anterior cortex along the calcaneus and talus. Correlate for osteomyelitis a t this level. IMPRESSION: 1. There appears to be some interval widening with loss of the cortex along the articular surface of the talus and calcaneus with the mid foot. Correlate for osteomyelitis at this level. 2. Persistent skin staple in same position as prior examination. Consider foreign body.
[2023-07-07 18:49] LABS: Anisocytosis Slight; Basophils # (A) 0.1 k/uL (0-0.2); Basophils % (A) 1 %; Eosinophils # (A) 0.4 k/uL (0-0.7); Eosinophils % (A) 5 %; HCT 37.4 % (39.0-53.0); HGB 11.7 gm/dL (13.0-17.5); Hypochromasia Moderate; Lymphocytes # (A) 2.1 k/uL (1.0-4.8); Lymphocytes % (A) 22 %; MCH 27.2 pg (25.0-35.0); MCHC 31.2 g/dL (31.0-37.0); Mean Platelet Volume 8.6; Monocytes # (A) 0.6 k/uL (0-1.0); Monocytes % (A) 6 %; Neutrophils # (A) 6.2 k/uL (1.3-7.7); Neutrophils % (A) 65 %; Platelet Count 382 k/uL (150-450); RDW 17.9 % (11.5-15.5); WBC 9.6 k/uL (3.8-10.6)
[2023-07-07 18:53] LABS: ALT 14 U/L (4-49); AST 13 U/L (17-59); African American GFR (CKD) >90 (>60 ml/min/1.73 sqM); Albumin 3.4 g/dL (3.5-5.0); Alkaline Phosphatase 134 U/L (38-126); Anion Gap 6 mmol/L; Blood Urea Nitrogen 17 mg/dL (9-20); Carbon Dioxide 24 mmol/L (22-30); Chloride 105 mmol/L (98-107); Glucose 356 mg/dL (74-99); Non-African American GFR(CKD) >90 (>60 ml/min/1.73 sqM); Potassium 5.3 mmol/L (3.5-5.1); Sodium 135 mmol/L (137-145); Total Bilirubin 0.3 mg/dL (0.2-1.3); Total Protein 6.6 g/dL (6.3-8.2)
[2023-07-07] MEDS ORDERED: MORPHINE SULFATE 4 MG/ML SYRINGE IV PRN (22:24)
[2023-07-07] MEDS ORDERED: NALOXONE 0.4 MG/ML 1 ML VIAL IV PRN (22:24)
[2023-07-07] MEDS ORDERED: ONDANSETRON 4 MG/2 ML VIAL IVP PRN (22:24)
[2023-07-07] MEDS ORDERED: VANCOMYCIN IV PER PHARMACY 1 EACH MISC MISCELLANE PRN (22:24)
[2023-07-07] MEDS: SODIUM CHLORIDE 0.9% 1,000 ML IV SCH (22:57)
[2023-07-07] MEDS: VANCOMYCIN 1,250 MG in SODIUM CHLORIDE 0.9% 250 ML IVPB ONE (23:53)
[2023-07-08 08:37] LABS: Anisocytosis Slight; Basophils # (A) 0.1 k/uL (0-0.2); Basophils % (A) 1 %; Eosinophils # (A) 0.4 k/uL (0-0.7); Eosinophils % (A) 4 %; HCT 40.3 % (39.0-53.0); Hypochromasia Marked; Lymphocytes # (A) 1.9 k/uL (1.0-4.8); Lymphocytes % (A) 22 %; MCH 26.1 pg (25.0-35.0); MCHC 29.8 g/dL (31.0-37.0); MCV 87.8 fL (80.0-100.0); Mean Platelet Volume 8.3; Monocytes # (A) 0.4 k/uL (0-1.0); Monocytes % (A) 5 %; Neutrophils # (A) 5.6 k/uL (1.3-7.7); Neutrophils % (A) 66 %; Platelet Count 312 k/uL (150-450); RBC 4.59 m/uL (4.30-5.90); RDW 17.8 % (11.5-15.5); WBC 8.5 k/uL (3.8-10.6)
[2023-07-08 09:02] LABS: ALT 12 U/L (4-49); AST 13 U/L (17-59); African American GFR (CKD) >90 (>60 ml/min/1.73 sqM); Albumin 3.5 g/dL (3.5-5.0); Alkaline Phosphatase 129 U/L (38-126); Anion Gap 8 mmol/L; Blood Urea Nitrogen 19 mg/dL (9-20); Calcium 9.1 mg/dL (8.4-10.2); Carbon Dioxide 22 mmol/L (22-30); Chloride 107 mmol/L (98-107); Glucose 210 mg/dL (74-99); Magnesium 1.4 mg/dL (1.6-2.3); Non-African American GFR(CKD) >90 (>60 ml/min/1.73 sqM); Potassium 4.3 mmol/L (3.5-5.1); Sodium 137 mmol/L (137-145); Total Bilirubin 0.3 mg/dL (0.2-1.3); Total Protein 6.8 g/dL (6.3-8.2)
[2023-07-08] MEDS: VANCOMYCIN 1,250 MG in SODIUM CHLORIDE 0.9% 250 ML IVPB SCH (10:34)
--- NOTE | 2023-07-08 17:00 | CT ---
EXAMINATION TYPE: CT foot LT w con CT DLP: 310 mGycm, Automated exposure control for dose reduction was used. DATE OF EXAM: 07/08/2023 4:48 PM COMPARISON: 05/05/2015 CLINICAL INDICATION:Male, 73 years old with history of Abscess, diabetic foot infection; PHH, Abscess , diabetic foot infection TECHNIQUE: Axial images were obtained of the CT foot LT w con, Additional coronal and sagittal reform atted images and soft tissue and bone window were obtained for review. 3-D reconstruction was created on a separate workstation. Contrast used:100ml mL of Isovue 300 with IV Contrast, (None if empty) Oral contrast used: (None if empty) FINDINGS: Postsurgical changes with amputation and streaky edema throughout the soft tissues of the f oot with Grossly abnormal osseous structures of the midfoot and hindfoot with erosive changes through out the majority of the osseous structures. Evaluating this complex anatomy is difficult given grossl y of normal appearance of all of the osseous structures. No evidence of acute fracture. No definitive organizing fluid collection visualized. IMPRESSION: Grossly abnormal flat with likely underlying osteomyelitis consider confirmation with three-phase bon e scan and/or MRI. No definitive abscess visualized.
[2023-07-08] MEDS: AMPICILLIN-SULBACTAM 3 GM in SODIUM CHLORIDE 0.9% 100 ML IVPB SCH (18:46)
[2023-07-08 20:25] LABS: Glucose,Whole Blood 248 mg/dL (70-110)
[2023-07-08] MEDS ORDERED: Magnesium Replacement Protocol 1 EACH MISC MISCELLANE PRN (20:41)
[2023-07-08] MEDS: MAGNESIUM SULFATE-D5W PMX 1 GM in DEXTROSE/WATER 1 100ML.BAG IVPB SCH (22:04)
[2023-07-08] MEDS: INSULIN ASPART (NovoLOG) 100 UNIT/ML VIAL SQ SCH (22:05)
--- NOTE | 2023-07-08 22:06 | P.CONS ---
History of Present Illness - Reason for Consult Consult date: 07/08/23 Osteo Requesting physician: Timur Jeter - Chief Complaint Left foot pain and swelling x few days - History of Present Illness Patient is a 73-year-old male with a past medical history significant for type 2 diabetes mellitus hypertension hyperlipidemia history of left diabetic foot infection requiring transmetatarsal amputation has been dealing with a chronic nonhealing wound on the plantar aspect of the left foot for many years and currently following up in the wound care center patient presented to [facility] ER concerning for increasing pain swelling redness to the left foot along with some purulent drainage patient mention symptom has been going on for the last few days denies any history of any trauma did not recall any high-grade fever or any chills main symptom remains to be swelling redness to the left foot with a small wound on the dorsal aspect of the left foot with some purulent drainage has been complaining of pain dull aching to sharp moderate intensity without any radiation patient obtundation to the hospital was afebrile and no fever have recorded subsequently patient was not tachycardic hypotensive or hypoxic did have a white count of 9.6 BUN/creatinine has been normal lactic acid was elevated 2.4 liver enzymes are normal patient did have a foot x-ray some interval widening with loss of the cortex along the articular surface of the talus and calcaneus with the midfoot correlate for osteomyelitis at this level patient was started on vancomycin and Zosyn infectious disease was consulted for further management of antibiotic therapy Review of Systems Positive point and negatives has been mentioned in the HPI, complete review of systems was performed and all other systems are negative Past Medical History Past Medical History: Dementia, Diabetes Mellitus, Hyperlipidemia, Hypertension, Myocardial Infarction ([place]) Additional Past Medical History / Comment(s): bladder CA Last Myocardial Infarction Date:: Mar 2004 History of Any Multi-Drug Resistant Organisms: MRSA Year Discovered:: L foot MDRO Source:: 2015 Past Surgical History: Appendectomy, Coronary Bypass/CABG, Hernia Repair Additional Past Surgical History / Comment(s): L foot partial amputation Past Psychological History: No Psychological Hx Reported Smoking Status: Former smoker Past Alcohol Use History: None Reported Past Drug Use History: None Reported Medications and Allergies Home Medications Medication Instructions Recorded Confirmed Type Atorvastatin [Lipitor] 40 mg PO DAILY 05/10/19 07/08/23 History Isosorbide Mononitrate ER [Imdur] 30 mg PO DAILY 05/10/19 07/08/23 History Metoprolol Tartrate [Lopressor] 50 mg PO BID-W/MEALS 05/10/19 07/08/23 History amLODIPine [Norvasc] 10 mg PO DAILY 05/10/19 07/08/23 History lisinopriL [Zestril] 10 mg PO BID-W/MEALS 05/10/19 07/08/23 History metFORMIN HCL [Glucophage] 1,000 mg PO BID-W/MEALS 05/10/19 07/08/23 History Aspirin 81 mg PO DAILY 07/08/23 07/08/23 History Famotidine [Pepcid] 40 mg PO DAILY 07/08/23 07/08/23 History Finasteride [Proscar] 5 mg PO W/SUPPER 07/08/23 07/08/23 History Tamsulosin HCl [Flomax] 0.4 mg PO BID-W/MEALS 07/08/23 07/08/23 History glyBURIDE [Diabeta] 5 mg PO BID-W/MEALS 07/08/23 07/08/23 History Acetaminophen Tab [Tylenol] 650 mg PO Q6HR PRN tab 07/15/23 Rx Amoxic-Pot Clav 875-125Mg 1 tab PO BID 14 Days #28 tab 07/15/23 Rx [Augmentin 875-125] Insulin Aspart [NovoLOG Flexpen] 0 units SQ ACHS #1 each 07/15/23 Rx Insulin Glargine,Hum.rec.anlog 30 units SQ HS #2 each 07/15/23 Rx [Lantus Solostar Pen] Allergies Allergy/AdvReac Type Severity Reaction Status Date / Time No Known Allergies Allergy Verified 07/08/23 08:09 Physical Exam Vitals: Vital Signs Temp Pulse Resp BP Pulse Ox 07/08/23 10:41 81 18 139/81 98 07/08/23 06:12 66 17 149/75 93 L 07/08/23 04:26 73 17 128/63 96 07/07/23 23:57 69 18 125/75 96 07/07/23 17:36 98.0 F 87 18 127/68 98 Intake and Output 07/07/23 07/08/23 07/08/23 22:59 06:59 14:59 Other: Weight 84.822 kg GENERAL DESCRIPTION: Elderly male lying in bed, no distress. No tachypnea or accessory muscle of respiration use. HEENT: Shows Pallor , no scleral icterus. Oral mucous membrane is dry. No pharyngeal erythema or thrush NECK: Trachea central, no thyromegaly. LUNGS: Unlabored breathing. Clear to auscultation anteriorly. No wheeze or crackle. HEART: S1, S2, regular rate and rhythm. No loud murmur ABDOMEN: Soft, no tenderness , guarding or rigidity, no organomegaly EXTREMITIES: Left foot with the transplant close amputation did have a blister on the dorsum aspect with some purulent drainage. Wound on the plantar aspect SKIN: No rash, no masses palpable. NEUROLOGICAL: The patient is awake, alert, oriented x3, mood and affect normal. Results CBC & Chem 7: 07/14/23 04:18 07/14/23 04:18 Labs: Abnormal Lab Results - Last 24 Hours (Table) 07/07/23 07/07/23 07/07/23 Range/Units 18:33 18:33 18:33 Hgb 11.7 L (13.0-17.5) gm/dL Hct 37.4 L (39.0-53.0) % MCHC (31.0-37.0) g/dL RDW 17.9 H (11.5-15.5) % Sodium 135 L (137-145) mmol/L Potassium 5.3 H (3.5-5.1) mmol/L Creatinine (0.66-1.25) mg/dL Glucose 356 H (74-99) mg/dL Plasma Lactic Acid Christos 2.4 H* (0.7-2.0) mmol/L Magnesium (1.6-2.3) mg/dL AST 13 L (17-59) U/L Alkaline Phosphatase 134 H (38-126) U/L Albumin 3.4 L (3.5-5.0) g/dL 07/08/23 07/08/23 07/08/23 Range/Units 02:32 08:15 08:15 Hgb 12.0 L (13.0-17.5) gm/dL Hct (39.0-53.0) % MCHC 29.8 L (31.0-37.0) g/dL RDW 17.8 H (11.5-15.5) % Sodium (137-145) mmol/L Potassium (3.5-5.1) mmol/L Creatinine 0.63 L (0.66-1.25) mg/dL Glucose 210 H (74-99) mg/dL Plasma Lactic Acid Christos 2.3 H* (0.7-2.0) mmol/L Magnesium 1.4 L (1.6-2.3) mg/dL AST 13 L (17-59) U/L Alkaline Phosphatase 129 H (38-126) U/L Albumin (3.5-5.0) g/dL Assessment and Plan (1) Diabetic infection of left foot Status: Acute Code(s): E11.628 - TYPE 2 DIABETES MELLITUS WITH OTHER SKIN COMPLICATIONS; L08.9 - LOCAL INFECTION OF THE SKIN AND SUBCUTANEOUS TISSUE, UNSP SNOMED Code(s): 01854609 (2) Foot ulcer, left Status: Acute Code(s): L97.529 - NON-PRESSURE CHRONIC ULCER OTH PRT LEFT FOOT W UNSP SEVERITY SNOMED Code(s): 771927125 (3) Infected wound Status: Acute Code(s): T14.8XXA - OTHER INJURY OF UNSPECIFIED BODY REGION, INITIAL ENCOUNTER; L08.9 - LOCAL INFECTION OF THE SKIN AND SUBCUTANEOUS TISSUE, UNSP SNOMED Code(s): 76473869 Plan: 1patient presented to hospital with extensive left diabetic foot infection in this patient noted to have history of left transmetatarsal amputation did have a purulent drainage on the dorsum aspect of the left foot with a wound on the plantar aspect like etiology of this infection concerning for possible abscess and will need to cover for the polymicrobial paula 2-we will obtain aerobic and anaerobic culture 3-check inflammatory markers 4-obtain CT of the left foot to make sure no evidence of any abscess that may need to be drained 5-continue with vancomycin however switch Zosyn to Unasyn decrease risk of nephrotoxicity 6-vascular surgery evaluation for possible drainage and deep culture We will follow on clinical condition and cultures to further adjust medication if needed Thank you for this consultation we will follow the patient along with you Dictation was produced using [employer] software. please excuse any grammatical, word or spelling errors. Time with Patient: Greater than 30
[2023-07-09 05:41] LABS: African American GFR (CKD) >90 (>60 ml/min/1.73 sqM); Non-African American GFR(CKD) >90 (>60 ml/min/1.73 sqM)
[2023-07-09] MEDS: TAMSULOSIN 0.4 MG CAP.ER.24H PO SCH (05:41)
[2023-07-09] MEDS: lisinopriL 10 MG TAB PO SCH (05:42)
[2023-07-09] MEDS: METOPROLOL TARTRATE 50 MG TAB PO SCH (05:42)
[2023-07-09 06:13] LABS: Glucose,Whole Blood 180 mg/dL (70-110)
[2023-07-09] MEDS: amLODIPine 10 MG TAB PO SCH (09:48)
[2023-07-09] MEDS: ISOSORBIDE MONONITRATE ER 30 MG TAB.ER.24H PO SCH (09:48)
[2023-07-09] MEDS: ASPIRIN 81 MG PO SCH (09:48)
[2023-07-09] MEDS: ATORVASTATIN 40 MG TAB PO SCH (09:48)
--- NOTE | 2023-07-09 10:42 | P.GSCN ---
History of Present Illness Consult date: 07/09/23 Reason for Consult: Left foot abscess, drainage and culture Requesting physician: Fidel Thomas History of present illness: This is a very pleasant 73-year-old male who had been sent to the emergency department by his primary care physician Dr. Bennett for concerns of infected foot wound and IV antibiotics. Patient has a past medical history of diabetes mellitus, chronic left foot wound, history of left transmetatarsal amputation, peripheral neuropathy, hyperlipidemia, hypertension, myocardial infarction, and coronary artery disease status post CABG. and is a former smoker states he quit 35 years ago. Patient states he has had a wound to his left foot for 7 years. He is not sure how it had started. He had seen a surgeon at [facility] Dr. Brownlee and had a transmetatarsal amputation 7 years ago for nonhealing wound. He continued to have wounds to the left foot over the past 7 years which has healed at times. He has been to the wound clinic and states that it had healed and he had stopped going there about a year ago. He has noticed new wounds to the top of his foot and bottom of his foot. He has purulent drainage from them. He has seen Dr. Barrera in the past which she states he recommended a below the knee amputation however patient was not interested at that time did not want to return back. He states that he is just been putting dressings on every 2 days him and his at home. He denies any fevers, chills, body aches nausea or vomiting. Denies any shortness of breath or chest pain. Vascular surgery was consulted for concerns of abscess and need for incision and drainage with deep tissue cultures. Foot x-ray and CAT scan report likely osteomyelitis. Also noted on x-ray appears to have a skin staple present. Review of Systems A 14 point review systems was completed all pertinent positives and negatives as stated in the HPI. Past Medical History Past Medical History: Dementia, Diabetes Mellitus, Hyperlipidemia, Hypertension, Myocardial Infarction ([place]) Additional Past Medical History / Comment(s): bladder CA Last Myocardial Infarction Date:: Mar 2004 History of Any Multi-Drug Resistant Organisms: MRSA Year Discovered:: L foot MDRO Source:: 2015 Past Surgical History: Appendectomy, Coronary Bypass/CABG, Hernia Repair Additional Past Surgical History / Comment(s): L foot partial amputation Past Psychological History: No Psychological Hx Reported Smoking Status: Former smoker Past Alcohol Use History: None Reported Past Drug Use History: None Reported Medications and Allergies Home Medications Medication Instructions Recorded Confirmed Type Atorvastatin [Lipitor] 40 mg PO DAILY 05/10/19 07/08/23 History Isosorbide Mononitrate ER [Imdur] 30 mg PO DAILY 05/10/19 07/08/23 History Metoprolol Tartrate [Lopressor] 50 mg PO BID-W/MEALS 05/10/19 07/08/23 History amLODIPine [Norvasc] 10 mg PO DAILY 05/10/19 07/08/23 History lisinopriL [Zestril] 10 mg PO BID-W/MEALS 05/10/19 07/08/23 History metFORMIN HCL [Glucophage] 1,000 mg PO BID-W/MEALS 05/10/19 07/08/23 History Aspirin 81 mg PO DAILY 07/08/23 07/08/23 History Famotidine [Pepcid] 40 mg PO DAILY 07/08/23 07/08/23 History Finasteride [Proscar] 5 mg PO W/SUPPER 07/08/23 07/08/23 History Tamsulosin HCl [Flomax] 0.4 mg PO BID-W/MEALS 07/08/23 07/08/23 History glyBURIDE [Diabeta] 5 mg PO BID-W/MEALS 07/08/23 07/08/23 History Allergies Allergy/AdvReac Type Severity Reaction Status Date / Time No Known Allergies Allergy Verified 07/08/23 08:09 Surgical - Exam Vital Signs Temp Pulse Resp BP Pulse Ox 98.0 F 87 18 127/68 98 07/07/23 17:36 07/07/23 17:36 07/07/23 17:36 07/07/23 17:36 07/07/23 17:36 General appearance: The patient is alert, oriented, appears in no acute distress. HET: Head is normocephalic and atraumatic. Pupils are equal and reactive. Neck: Supple. Heart: Regular. Lungs: Equal expansion, normal respiratory effort. Abdomen: Soft, nontender, nondistended. Extremities: Palpable bilateral femoral pulses. Left foot with previous TMA, surgical incision site healed. Dorsal aspect of left lateral foot near incision line with area of fluctuance and purulent drainage as well as a second area towards the medial aspect with purulent drainage. Plantar aspect with open wound and purulent drainage. Neurological: No focal deficits. Strength and sensation are grossly intact. Results - Labs 07/08/23 08:15 07/09/23 04:04 Abnormal Lab Results - Last 24 Hours (Table) 07/08/23 07/08/23 07/08/23 Range/Units 08:15 08:15 20:23 Hgb 12.0 L (13.0-17.5) gm/dL MCHC 29.8 L (31.0-37.0) g/dL RDW 17.8 H (11.5-15.5) % Creatinine 0.63 L (0.66-1.25) mg/dL Glucose 210 H (74-99) mg/dL POC Glucose (mg/dL) 248 H (70-110) mg/dL Magnesium 1.4 L (1.6-2.3) mg/dL AST 13 L (17-59) U/L Alkaline Phosphatase 129 H (38-126) U/L 07/09/23 07/09/23 Range/Units 04:04 06:11 Hgb (13.0-17.5) gm/dL MCHC (31.0-37.0) g/dL RDW (11.5-15.5) % Creatinine 0.58 L (0.66-1.25) mg/dL Glucose (74-99) mg/dL POC Glucose (mg/dL) 180 H (70-110) mg/dL Magnesium (1.6-2.3) mg/dL AST (17-59) U/L Alkaline Phosphatase (38-126) U/L Diabetes panel 07/08/23 07/09/23 Range/Units 08:15 04:04 Sodium 137 (137-145) mmol/L Potassium 4.3 (3.5-5.1) mmol/L Chloride 107 (98-107) mmol/L Carbon Dioxide 22 (22-30) mmol/L BUN 19 (9-20) mg/dL Creatinine 0.63 L 0.58 L (0.66-1.25) mg/dL Glucose 210 H (74-99) mg/dL Calcium 9.1 (8.4-10.2) mg/dL AST 13 L (17-59) U/L ALT 12 (4-49) U/L Alkaline Phosphatase 129 H (38-126) U/L Total Protein 6.8 (6.3-8.2) g/dL Albumin 3.5 (3.5-5.0) g/dL Calcium panel 07/08/23 Range/Units 08:15 Calcium 9.1 (8.4-10.2) mg/dL Phosphorus 4.0 (2.5-4.5) mg/dL Albumin 3.5 (3.5-5.0) g/dL Pituitary panel 07/08/23 07/09/23 Range/Units 08:15 04:04 Sodium 137 (137-145) mmol/L Potassium 4.3 (3.5-5.1) mmol/L Chloride 107 (98-107) mmol/L Carbon Dioxide 22 (22-30) mmol/L BUN 19 (9-20) mg/dL Creatinine 0.63 L 0.58 L (0.66-1.25) mg/dL Glucose 210 H (74-99) mg/dL Calcium 9.1 (8.4-10.2) mg/dL Adrenal panel 07/08/23 07/09/23 Range/Units 08:15 04:04 Sodium 137 (137-145) mmol/L Potassium 4.3 (3.5-5.1) mmol/L Chloride 107 (98-107) mmol/L Carbon Dioxide 22 (22-30) mmol/L BUN 19 (9-20) mg/dL Creatinine 0.63 L 0.58 L (0.66-1.25) mg/dL Glucose 210 H (74-99) mg/dL Calcium 9.1 (8.4-10.2) mg/dL Total Bilirubin 0.3 (0.2-1.3) mg/dL AST 13 L (17-59) U/L ALT 12 (4-49) U/L Alkaline Phosphatase 129 H (38-126) U/L Total Protein 6.8 (6.3-8.2) g/dL Albumin 3.5 (3.5-5.0) g/dL - Imaging Comments: Left foot x-ray reports there appears to be some interval widening with loss of the cortex along the articular surface of the talus and calcaneus with the mid foot. Correlate for osteomyelitis at this level. Persistent skin stable in same position as prior examination. Consider foreign body. CT of left foot with contrast reports grossly abnormal flat with likely underlying osteomyelitis consider confirmation with three-phase bone scan and/or MRI. No definitive abscess visualized. Assessment and Plan Assessment: 1. Left foot infected chronic diabetic wounds 2. Foreign body seen on x-ray and left foot 3. History diabetic wounds, status post transmetatarsal amputation 4. Diabetes mellitus 5. Coronary artery disease with history of CABG 6. Hypertension 7. Hyperlipidemia Plan: 1. Continue with antibiotics per recommendations from infectious disease 2. Arterial duplex of lower extremities ordered 3. Patient will need incision and drainage, debridement and possible foreign body removal. Tentatively scheduled for tomorrow. 4. Rest of medical management per primary medical team Thank you for this consultation, we will continue to follow. The impression and plan of care has been dictated as directed. Dr. Louis I performed a history and examination of this patient, discussed the same with the dictator. I agree with the dictator's note ,documented as a scribe. Any additional findings or plans will be noted.
[2023-07-09 11:44] LABS: Glucose,Whole Blood 339 mg/dL (70-110)
--- NOTE | 2023-07-09 11:44 | US ---
EXAMINATION TYPE: US arterial LE multi level DATE OF EXAM: 07/09/2023 10:58 AM CLINICAL INDICATION: Male, 73 years old with history of DM, non healing wound Left foot; Left food wo und. 60% of left foot removed x 7 years ago including all 5 digits. History of: Smoker: Previous Hypertension: Takes medication Diabetic: Yes Hyperlipidemia: Yes TIA/CVA: No Previous Vascular Surgery: Yes CAD: Yes IA: Yes Vascular Ulcers: Left Claudication: No Gangrene: No Doppler Waveforms: Right: Multiphasic Left: Monophasic Pressure Gradients: Right Brachial Pressure: 134 Left Brachial Pressure: Deferred Ankle-Brachial Indices: Right: 0.8 Left: 0.8 (Vessel hardening > 1.4; Normal 0.9 - 1.4, Moderate 0.7 - 0.9, Severe 0.5-0.7) Toe Brachial Indices: Right: 0.5 IMPRESSION: Moderate bilateral peripheral vascular disease by ankle brachial indices.
[2023-07-09 17:01] LABS: Glucose,Whole Blood 228 mg/dL (70-110)
[2023-07-09] MEDS: FINASTERIDE 5 MG TAB PO SCH (17:17)
[2023-07-09 20:45] LABS: Glucose,Whole Blood 224 mg/dL (70-110)
[2023-07-10 05:52] LABS: Glucose,Whole Blood 175 mg/dL (70-110)
[2023-07-10 09:06] LABS: African American GFR (CKD) >90 (>60 ml/min/1.73 sqM); Anion Gap 5 mmol/L; Blood Urea Nitrogen 9 mg/dL (9-20); Carbon Dioxide 24 mmol/L (22-30); Chloride 110 mmol/L (98-107); Glucose 126 mg/dL (74-99); Magnesium 1.3 mg/dL (1.6-2.3); Non-African American GFR(CKD) >90 (>60 ml/min/1.73 sqM); Sodium 139 mmol/L (137-145)
[2023-07-10] MEDS: MAGNESIUM SULFATE-D5W PMX 1 GM in DEXTROSE/WATER 1 100ML.BAG IVPB ONE (09:38)
[2023-07-10] MEDS: MAGNESIUM SULFATE-D5W PMX 1 GM in DEXTROSE/WATER 1 100ML.BAG IVPB SCH (09:42)
[2023-07-10 11:30] LABS: Glucose,Whole Blood 166 mg/dL (70-110)
[2023-07-10] MEDS: LACTATED RINGERS 1,000 ML IV ONE (12:27)
[2023-07-10 12:28] LABS: Glucose,Whole Blood 169 mg/dL (70-110)
[2023-07-10] MEDS: VANCOMYCIN TROUGH DUE 1 EACH MISC MISCELLANE ONE (12:36)
[2023-07-10] MEDS ORDERED: PROPOFOL 10 MG/ML 20 ML VIAL IV ONE (12:38)
[2023-07-10] MEDS ORDERED: MIDAZOLAM 2 MG/2 ML VIAL ONE (12:38)
[2023-07-10] MEDS ORDERED: KETAMINE HCL IN 0.9 % NACL 50 MG/5 ML SYRINGE ONE (12:38)
[2023-07-10] MEDS ORDERED: fentaNYL (PF) 50 MCG/ML 2 ML AMP ONE (12:38)
[2023-07-10] MEDS ORDERED: GLYCOPYRROLATE 0.2 MG/ML 2 ML VIAL ONE (12:38)
[2023-07-10] MEDS ORDERED: ePHEDrine 50 MG/ML 1 ML VIAL ONE (12:38)
[2023-07-10] MEDS ORDERED: LIDOCAINE 1% INJ 10MG/ML (20 ML MDV) ONE (12:38)
[2023-07-10] MEDS ORDERED: ONDANSETRON 4 MG/2 ML VIAL ONE (12:38)
[2023-07-10] MEDS: IV FLUID CONTINUATION 250 ML IV ONE (12:40)
--- NOTE | 2023-07-10 13:10 | P.CONS ---
History of Present Illness - Reason for Consult Consult date: 07/10/23 wound care - History of Present Illness This is a very pleasant 73-year-old male who had been sent to the emergency department by his primary care physician Dr. Bennett for concerns of infected foot wound and IV antibiotics. Patient has a past medical history of diabetes mellitus, chronic left foot wound, history of left transmetatarsal amputation, peripheral neuropathy, hyperlipidemia, hypertension, myocardial infarction, and coronary artery disease status post CABG. and is a former smoker states he quit 35 years ago. Patient states he has had a wound to his left foot for 7 years. He is not sure how it had started. He had seen a surgeon at [facility] Dr. Brownlee and had a transmetatarsal amputation 7 years ago for nonhealing wound. He continued to have wounds to the left foot over the past 7 years which has healed at times. He has been to the wound clinic and states that it had healed and he had stopped going there about a year ago. He has noticed new wounds to the top of his foot and bottom of his foot. He has purulent drainage from them. He has seen Dr. Barrera in the past which she states he recommended a below the knee amputation however patient was not interested at that time did not want to return back. Patient has multiple ulcerations with purulent drainage no granulation noted slough and nonviable tissue present. Patient is scheduled for a I&D this afternoon. Review Of Systems: Constitutional: No fever, no chills, no night sweats. No weight change. No weakness, fatigue or lethargy. No daytime sleepiness. Integumentary:reports wounds, no lesions. No rash or pruritus. No unusual bruising. No change in hair or nails. Physical exam: General Appearance: Alert, cooperative, no distress, appears stated age. Skin: See HPI all other Skin color, texture, tugor normal, no rashes or lesions. Neurologic: Alert oriented x3 Assessment: 1. Multiple nonhealing ulcerations to left dorsal and plantar foot with muscle involvement without necrosis 2. Diabetic foot ulcer Plan: 1. Apply absorptive silver, saline with gauze, dry gauze, rolled gauze secure with paper tape. Initiate dressing changes after cleared by surgery. Patient would benefit from advanced wound care and wound care setting. Would be happy to see him upon discharge. Patient is agreeable to plan of care. Thank for the consultation any questions please contact the wound care center DNP note has been reviewed and discussed with Dr. Jerez and the impression and plan of care has been directed as dictated. Past Medical History Past Medical History: Dementia, Diabetes Mellitus, Hyperlipidemia, Hypertension, Myocardial Infarction ([place]) Additional Past Medical History / Comment(s): bladder CA Last Myocardial Infarction Date:: Mar 2004 History of Any Multi-Drug Resistant Organisms: MRSA Year Discovered:: L foot MDRO Source:: 2015 Past Surgical History: Appendectomy, Coronary Bypass/CABG, Hernia Repair Additional Past Surgical History / Comment(s): L foot partial amputation Past Psychological History: No Psychological Hx Reported Smoking Status: Former smoker Past Alcohol Use History: None Reported Past Drug Use History: None Reported Medications and Allergies Home Medications Medication Instructions Recorded Confirmed Type Atorvastatin [Lipitor] 40 mg PO DAILY 05/10/19 07/08/23 History Isosorbide Mononitrate ER [Imdur] 30 mg PO DAILY 05/10/19 07/08/23 History Metoprolol Tartrate [Lopressor] 50 mg PO BID-W/MEALS 05/10/19 07/08/23 History amLODIPine [Norvasc] 10 mg PO DAILY 05/10/19 07/08/23 History lisinopriL [Zestril] 10 mg PO BID-W/MEALS 05/10/19 07/08/23 History metFORMIN HCL [Glucophage] 1,000 mg PO BID-W/MEALS 05/10/19 07/08/23 History Aspirin 81 mg PO DAILY 07/08/23 07/08/23 History Famotidine [Pepcid] 40 mg PO DAILY 07/08/23 07/08/23 History Finasteride [Proscar] 5 mg PO W/SUPPER 07/08/23 07/08/23 History Tamsulosin HCl [Flomax] 0.4 mg PO BID-W/MEALS 07/08/23 07/08/23 History glyBURIDE [Diabeta] 5 mg PO BID-W/MEALS 07/08/23 07/08/23 History Allergies Allergy/AdvReac Type Severity Reaction Status Date / Time No Known Allergies Allergy Verified 07/08/23 08:09 Physical Exam Vitals: Vital Signs Temp Pulse Pulse Resp BP Pulse Ox 05/23/24 12:28 98.2 F 63 16 126/59 96 07/10/23 07:29 98.2 F 61 17 124/58 98 07/10/23 01:04 98.0 F 65 17 140/66 97 07/09/23 19:32 98.2 F 70 16 137/61 96 07/09/23 14:01 97.7 F 73 18 134/64 96 Intake and Output 07/09/23 07/10/23 07/10/23 22:59 06:59 14:59 Intake Total 0 Balance 0 Intake: IV 0 Other: Voiding Method Toilet # Voids 4 Results CBC & Chem 7: 07/08/23 08:15 07/10/23 08:07 Labs: Abnormal Lab Results - Last 24 Hours (Table) 07/09/23 07/09/23 07/10/23 Range/Units 16:59 20:44 05:51 Chloride (98-107) mmol/L Creatinine (0.66-1.25) mg/dL Glucose (74-99) mg/dL POC Glucose (mg/dL) 228 H 224 H 175 H (70-110) mg/dL Magnesium (1.6-2.3) mg/dL 07/10/23 07/10/23 07/10/23 Range/Units 08:07 11:28 12:15 Chloride 110 H (98-107) mmol/L Creatinine 0.49 L (0.66-1.25) mg/dL Glucose 126 H (74-99) mg/dL POC Glucose (mg/dL) 166 H 169 H (70-110) mg/dL Magnesium 1.3 L (1.6-2.3) mg/dL Assessment and Plan (1) Non-pressure chronic ulcer of other part of left foot with muscle involvement without evidence of necrosis Current Visit: Yes Status: Acute Code(s): L97.525 - NON-PRS CHR ULC OTH PRT L FOOT WITH MSL INVL W/O EVD OF NECR SNOMED Code(s): 01525520261322809 (2) Type 2 diabetes mellitus with foot ulcer Current Visit: Yes Status: Acute Code(s): E11.621 - TYPE 2 DIABETES MELLITUS WITH FOOT ULCER; L97.509 - NON-PRESSURE CHRONIC ULCER OTH PRT UNSP FOOT W UNSP SEVERITY SNOMED Code(s): 531232066
--- NOTE | 2023-07-10 13:49 | P.OP ---
Date of Procedure: 07/10/23 Preoperative Diagnosis: 1: Retained foreign body (surgical staple) left foot. 2: Nonhealing wound dorsal surface left foot and plantar surface of the left foot Postoperative Diagnosis: Same. Procedure(s) Performed: 1: Fluoroscopically guided removal of foreign body (surgical stable). 2: Excisional debridement left foot wound x 2. Implants: None. Anesthesia: GETA (Via LMA) Surgeon: Donald Bauer Estimated Blood Loss (ml): 10 Pathology: other (Wound culture) Condition: stable Disposition: no change Indications for Procedure: Patient is a 73-year-old male with a history of status post transmetatarsal amputation who has been experiencing for the past few years intermittent wound formation on the dorsal and plantar surface of his left foot. Wound is reopened and patient is now offered debridement and culture. Additionally preoperative x-rays demonstrated a retained foreign body (surgical stable). It was felt prudent to remove this foreign body. Description of Procedure: Patient brought the operating placed in supine position administered general anesthesia delivered by the department of anesthesiology via the LMA technique. The patient's left foot was sterilely prepped and draped in usual manner. Patient's antibiotic regimen was continued. On the dorsum of the foot a wound measuring 1.5 x 6 mm was identified. Skin edges were and the wound was first irrigated and then sharp excision of nonviable tissue was performed. The wound extended to the bony level. There is no significant tunneling noted. The foreign body was felt to be located in this wound however after much searching the staple could not be identified and as such the mini C arm was brought into the room and the staple was found to be located more on the plantar surface of the foot. It was necessary to eventually make 2 counterincisions on the plantar surface and with the use of the mini C arm the staple was grasped and removed. The pre-existing wound on the plantar surface was probed with a surgical instrument. Significant tunneling was noted heading toward the dorsal surface of the foot and measured 3 cm in length. The wound was opened and evaluation demonstrated no necrotic tissue to be debrided. With the above findings noted all wounds were irrigated and then packed with iodoform gauze. 4 x 4's Curlex and Sandro wrap were placed. Patient tolerated the procedure well and was taken to the recovery area in satisfactory and stable condition.
[2023-07-10 13:54] LABS: Glucose,Whole Blood 196 mg/dL (70-110)
[2023-07-10] MEDS: VANCOMYCIN 1,500 MG in SODIUM CHLORIDE 0.9% 500 ML 500 ML IVPB SCH (15:58)
[2023-07-10 16:22] LABS: Glucose,Whole Blood 201 mg/dL (70-110)
--- NOTE | 2023-07-10 16:54 | P.PN ---
Subjective Progress Note Date: 07/09/23 Principal diagnosis: Reason for follow-up is left diabetic foot infection Patient is a 73-year-old male with a past medical history significant for type 2 diabetes mellitus hypertension hyperlipidemia history of left diabetic foot infection requiring transmetatarsal amputation has been dealing with a chronic nonhealing wound on the plantar aspect of the left foot, pr esented to hospital worsening pain and swelling to the left foot concerning for diabetic foot infection and abscess. On today's evaluation that is 07/09/2023, Patient is afebrile patient is currently on room air and denies having any shortness of breath, the patient denies any chest pain or cough, the patient denies any nausea vomiting did not have any abdominal pain and no diarrhea denies any worsening pain to the left foot Patient did have a creatinine 0.58 Objective - Vital Signs Vital signs: Vital Signs Temp 97.9 F 07/09/23 07:10 Pulse 66 07/09/23 09:12 Resp 17 07/09/23 09:12 BP 134/62 07/09/23 07:10 Pulse Ox 95 07/09/23 07:10 FiO2 Intake & Output 07/08/23 07/09/23 07/09/23 18:59 06:59 18:59 Intake Total 10 Balance 10 Weight 84.822 kg Intake: IV 10 Invasive Line 2 10 Other: Voiding Method Toilet Toilet Toilet # Voids 1 4 - Exam GENERAL DESCRIPTION: An elderly male lying in bed in no distress RESPIRATORY SYSTEM: Unlabored breathing , decreased breath sounds at bases HEART: S1 S2 regular rate and rhythm , ABDOMEN: Soft , no tenderness EXTREMITIES: Left foot is currently dressed - Labs CBC & Chem 7: 07/08/23 08:15 07/10/23 08:07 Labs: Abnormal Lab Results - Last 24 Hours (Table) 07/08/23 07/09/23 07/09/23 Range/Units 20:23 04:04 06:11 Creatinine 0.58 L (0.66-1.25) mg/dL POC Glucose (mg/dL) 248 H 180 H (70-110) mg/dL 07/09/23 Range/Units 11:42 Creatinine (0.66-1.25) mg/dL POC Glucose (mg/dL) 339 H (70-110) mg/dL Microbiology - Last 24 Hours (Table) 07/08/23 22:27 Gram Stain - Preliminary Foot - Left Assessment and Plan (1) Diabetic infection of left foot Current Visit: Yes Status: Acute Code(s): E11.628 - TYPE 2 DIABETES MELLITUS WITH OTHER SKIN COMPLICATIONS; L08.9 - LOCAL INFECTION OF THE SKIN AND SUBCUTANEOUS TISSUE, UNSP SNOMED Code(s): 18283055 (2) Type 2 diabetes mellitus with foot ulcer Current Visit: Yes Status: Acute Code(s): E11.621 - TYPE 2 DIABETES MELLITUS WITH FOOT ULCER; L97.509 - NON-PRESSURE CHRONIC ULCER OTH PRT UNSP FOOT W UNSP SEVERITY SNOMED Code(s): 722911415 Plan: 1patient presented to hospital with extensive left diabetic foot infection in this patient noted to have history of left transmetatarsal amputation did have a purulent drainage on the dorsum aspect of the left foot with a wound on the plantar aspect like etiology of this infection concerning for possible abscess and will need to cover for the polymicrobial paula 2-local cultures currently pending, CT did show significant normality but no drainable abscess 3-vascular surgery is planning for I&D tomorrow at which time deep culture should be obtained 4 for now-continue with vancomycin and Unasyn while waiting for the culture to finalize Dictation was produced using [employer] dictation software. please excuse any grammatical, word or spelling errors. Time with Patient: Less than 30
--- NOTE | 2023-07-10 16:57 | P.PN ---
Subjective Progress Note Date: 07/10/23 Principal diagnosis: Reason for follow-up is left diabetic foot infection Patient is a 73-year-old male with a past medical history significant for type 2 diabetes mellitus hypertension hyperlipidemia history of left diabetic foot infection requiring transmetatarsal amputation has been dealing with a chronic nonhealing wound on the plantar aspect of the left foot, pr esented to hospital worsening pain and swelling to the left foot concerning for diabetic foot infection and abscess.Patient is status post removal of retained foreign body and excisional debridement of the left foot wound x 2 by vascular surgery on 07/10/2023 On today's evaluation that is 07/10/2023, patient has been afebrile, patient is breathing comfortably and is currently on room air, patient denies having any significant cough no chest pain shortness of breath, patient denies nausea vomiting or diarrhea and no abdominal pain, denies any worsening pain to the left foot. Patient did have a creatinine 0.49 no CBC was done today cultures pending Objective - Vital Signs Vital signs: Vital Signs Temp 97 F L 07/10/23 13:43 Pulse 65 07/10/23 14:12 Resp 16 07/10/23 14:12 BP 121/64 07/10/23 14:12 Pulse Ox 96 07/10/23 14:12 FiO2 Intake & Output 07/09/23 07/10/23 07/10/23 18:59 06:59 18:59 Intake Total 300 Output Total 10 Balance 290 Intake: IV 300 Output: Estimated Blood Loss 10 Other: Voiding Method Toilet Toilet # Voids 1 4 - Exam GENERAL DESCRIPTION: An elderly male lying in bed in no distress RESPIRATORY SYSTEM: Unlabored breathing , decreased breath sounds at bases HEART: S1 S2 regular rate and rhythm , ABDOMEN: Soft , no tenderness EXTREMITIES: Left foot is currently dressed - Labs CBC & Chem 7: 07/08/23 08:15 07/10/23 08:07 Labs: Abnormal Lab Results - Last 24 Hours (Table) 07/09/23 07/09/23 07/10/23 Range/Units 16:59 20:44 05:51 Chloride (98-107) mmol/L Creatinine (0.66-1.25) mg/dL Glucose (74-99) mg/dL POC Glucose (mg/dL) 228 H 224 H 175 H (70-110) mg/dL Magnesium (1.6-2.3) mg/dL 07/10/23 07/10/23 07/10/23 Range/Units 08:07 11:28 12:15 Chloride 110 H (98-107) mmol/L Creatinine 0.49 L (0.66-1.25) mg/dL Glucose 126 H (74-99) mg/dL POC Glucose (mg/dL) 166 H 169 H (70-110) mg/dL Magnesium 1.3 L (1.6-2.3) mg/dL 07/10/23 07/10/23 Range/Units 13:52 16:20 Chloride (98-107) mmol/L Creatinine (0.66-1.25) mg/dL Glucose (74-99) mg/dL POC Glucose (mg/dL) 196 H 201 H (70-110) mg/dL Magnesium (1.6-2.3) mg/dL Assessment and Plan (1) Diabetic infection of left foot Current Visit: Yes Status: Acute Code(s): E11.628 - TYPE 2 DIABETES MELLITUS WITH OTHER SKIN COMPLICATIONS; L08.9 - LOCAL INFECTION OF THE SKIN AND SUBCUTANEOUS TISSUE, UNSP SNOMED Code(s): 37329081 (2) Type 2 diabetes mellitus with foot ulcer Current Visit: Yes Status: Acute Code(s): E11.621 - TYPE 2 DIABETES MELLITUS WITH FOOT ULCER; L97.509 - NON-PRESSURE CHRONIC ULCER OTH PRT UNSP FOOT W UNSP SEVERITY SNOMED Code(s): 199963767 Plan: 1patient presented to hospital with extensive left diabetic foot infection in this patient noted to have history of left transmetatarsal amputation did have a purulent drainage on the dorsum aspect of the left foot with a wound on the plantar aspect like etiology of this infection concerning for possible abscess and will need to cover for the polymicrobial paula 2-local cultures currently pending, CT did show significant normality but no drainable abscess, the patient has been evaluated by vascular surgery status post removal of the foreign body and excisional debridement 3-patient is covered with vancomycin and Unasyn while waiting for the culture to finalize Dictation was produced using [employer] software. please excuse any grammatical, word or spelling errors.
[2023-07-10 20:36] LABS: Glucose,Whole Blood 263 mg/dL (70-110)
--- NOTE | 2023-07-11 04:09 | P.PN ---
Subjective Progress Note Date: 07/10/[address] Bennett 07/10/2023 Patient is currently in preop awaiting to undergo debridement with vascular surgery. Will await surgical report and follow-up with patient postoperatively. REVIEW OF SYSTEMS: CONSTITUTIONAL: No fever, no malaise, no fatigue. HEENT: No recent visual problems or hearing problems. Denied any sore throat. CARDIOVASCULAR: No chest pain, orthopnea, PND, no palpitations, no syncope. PULMONARY: No shortness of breath, no cough, no hemoptysis. GASTROINTESTINAL: No diarrhea, no nausea, no vomiting, no abdominal pain. NEUROLOGICAL: No headaches, no weakness, no numbness. HEMATOLOGICAL: Denies any bleeding or petechiae. GENITOURINARY: Denies any burning micturition, frequency, or urgency. MUSCULOSKELETAL/RHEUMATOLOGICAL: Denies any joint pain, swelling, or any muscle pain. ENDOCRINE: Denies any polyuria or polydipsia. The rest of the 14-point review of systems is negative. PHYSICAL EXAMINATION: GENERAL: The patient is alert and oriented x2, not in any acute distress. Well developed, well nourished. Elderly appearing HEENT: Pupils are round and equally reacting to light. EOMI. No scleral icterus. No conjunctival pallor. Normocephalic, atraumatic. No pharyngeal erythema. No thyromegaly. CARDIOVASCULAR: S1 and S2 present. No murmurs, rubs, or gallops. PULMONARY: Chest is clear to auscultation, no wheezing or crackles. ABDOMEN: Soft, nontender, nondistended, normoactive bowel sounds. No palpable organomegaly. MUSCULOSKELETAL: No joint swelling or deformity. EXTREMITIES: No cyanosis, clubbing, or pedal edema. NEUROLOGICAL: Gross neurological examination did not reveal any focal deficits. Diffusely weak SKIN: No rashes. Assessment: Left foot diabetic wounds with concerns of infection, present on admission Foreign body of the left foot noted on imaging History of diabetes mellitus, uncontrolled with hyperglycemia Previous history of transmetatarsal amputation on the left Hypertension Hyperlipidemia Dementia GI prophylaxis DVT prophylaxis Full code Plan: Patient is scheduled to undergo I&D with vascular surgery and evaluation of possible removal of foreign body as noted on imaging. Patient currently n.p.o. and going to preop Continue monitoring Accu-Cheks before meals and at bedtime and will add sliding scale as needed Follow-up on repeat labs Infectious disease following and patient is continued on antibiotics at this time and will await cultures PT/OT therapy for evaluation Case management consult regarding discharge planning Continue with local wound care per vascular surgery as well as ID recommendations Due to multiple complex medical issues, overall prognosis is guarded The impression and plan of care has been dictated by Gayatri Shepherd, Nurse Practitioner as directed. Dr. Darrell MD I have performed a history and examination and MDM of this patient, discussed the same with the dictator, and agree with the dictator's assessment and plan as written ,documented as a scribe. Based on total visit time, I have performed more than 50% of the visit. Objective - Vital Signs Vital signs: Vital Signs Temp 98.2 F 07/10/23 07:29 Pulse 61 07/10/23 07:29 Resp 17 07/10/23 07:29 BP 124/58 07/10/23 07:29 Pulse Ox 98 07/10/23 07:29 FiO2 Intake & Output 07/09/23 07/10/23 07/10/23 18:59 06:59 18:59 Other: Voiding Method Toilet Toilet # Voids 1 4 - Labs CBC & Chem 7: 07/08/23 08:15 07/10/23 08:07 Labs: Abnormal Lab Results - Last 24 Hours (Table) 07/09/23 07/09/23 07/09/23 Range/Units 11:42 16:59 20:44 Chloride (98-107) mmol/L Creatinine (0.66-1.25) mg/dL Glucose (74-99) mg/dL POC Glucose (mg/dL) 339 H 228 H 224 H (70-110) mg/dL Magnesium (1.6-2.3) mg/dL 07/10/23 07/10/23 Range/Units 05:51 08:07 Chloride 110 H (98-107) mmol/L Creatinine 0.49 L (0.66-1.25) mg/dL Glucose 126 H (74-99) mg/dL POC Glucose (mg/dL) 175 H (70-110) mg/dL Magnesium 1.3 L (1.6-2.3) mg/dL Microbiology - Last 24 Hours (Table) 07/08/23 22:27 Gram Stain - Preliminary Foot - Left
[2023-07-11 06:20] LABS: Glucose,Whole Blood 178 mg/dL (70-110)
[2023-07-11 10:37] LABS: Basophils # (A) 0.04 X 10*3/uL (0.00-0.10); Basophils % (A) 0.5 %; Eosinophils # (A) 0.28 X 10*3/uL (0.04-0.35); Eosinophils % (A) 3.4 %; HCT 32.7 % (39.6-50.0); HGB 9.9 g/dL (13.0-17.0); Lymphocytes # (A) 1.48 X 10*3/uL (0.90-5.00); Lymphocytes % (A) 17.9 %; MCH 26.2 pg (27.0-32.0); MCHC 30.3 g/dL (32.0-37.0); MCV 86.5 FL (80.0-97.0); Monocytes # (A) 0.62 X 10*3/uL (0.20-1.00); Monocytes % (A) 7.5 %; NRBC Per 100 WBC 0 X 10*3/uL (0.00-0.01); Neutrophils % (A) 70.3 %; Platelet Count 227 X 10*3/uL (140-440); RBC 3.78 X 10*6/uL (4.40-5.60); WBC 8.25 X 10*3/uL (4.50-10.00)
[2023-07-11 10:54] LABS: BUN/Creat Ratio 13.14 Ratio (12.00-20.00); Blood Urea Nitrogen 9.2 mg/dL (9.0-27.0); Calcium 8.5 mg/dL (8.7-10.3); Carbon Dioxide 21.4 mmol/L (21.6-31.8); Chloride 107 mmol/L (96-109); Glucose 159 mg/dL (70-110); Magnesium 1.5 mg/dL (1.5-2.4); Sodium 138 mmol/L (135-145)
[2023-07-11 11:43] LABS: Glucose,Whole Blood 199 mg/dL (70-110)
--- NOTE | 2023-07-11 16:06 | P.PN ---
Subjective Progress Note Date: 07/11/23 Principal diagnosis: Reason for follow-up is left diabetic foot infection Patient is a 73-year-old male with a past medical history significant for type 2 diabetes mellitus hypertension hyperlipidemia history of left diabetic foot infection requiring transmetatarsal amputation has been dealing with a chronic nonhealing wound on the plantar aspect of the left foot, pr esented to hospital worsening pain and swelling to the left foot concerning for diabetic foot infection and abscess.Patient is status post removal of retained foreign body and excisional debridement of the left foot wound x 2 by vascular surgery on 07/10/2023 On today's evaluation that is 07/11/2023,the patient denies any fever or any chills, patient is breathing comfortably on room air, the patient denies chest pain shortness of breath and no significant cough, patient denies abdominal pain, no nausea vomiting or diarrhea. Denies pain to the left foot feeling better. Patient white count is 8.25, creatinine 0.7 culture with group B strep Objective - Vital Signs Vital signs: Vital Signs Temp 98.4 F 07/11/23 07:54 Pulse 68 07/11/23 07:54 Resp 15 07/11/23 07:54 BP 130/63 07/11/23 07:54 Pulse Ox 96 07/11/23 07:54 FiO2 Intake & Output 07/10/23 07/11/23 07/11/23 18:59 06:59 18:59 Intake Total 300 Output Total 10 Balance 290 Intake: IV 300 Output: Estimated Blood Loss 10 Other: Voiding Method Toilet # Voids 3 3 - Exam GENERAL DESCRIPTION: An elderly male lying in bed in no distress RESPIRATORY SYSTEM: Unlabored breathing , decreased breath sounds at bases HEART: S1 S2 regular rate and rhythm , ABDOMEN: Soft , no tenderness EXTREMITIES: Left foot is currently dressed - Labs CBC & Chem 7: 07/11/23 06:33 07/11/23 06:33 Labs: Abnormal Lab Results - Last 24 Hours (Table) 07/10/23 07/10/23 07/10/23 Range/Units 13:52 16:20 20:35 RBC (4.40-5.60) X 10*6/uL Hgb (13.0-17.0) g/dL Hct (39.6-50.0) % MCH (27.0-32.0) pg MCHC (32.0-37.0) g/dL RDW (11.5-14.5) % Carbon Dioxide (21.6-31.8) mmol/L Glucose (70-110) mg/dL POC Glucose (mg/dL) 196 H 201 H 263 H (70-110) mg/dL Calcium (8.7-10.3) mg/dL 07/11/23 07/11/23 07/11/23 Range/Units 06:15 06:33 06:33 RBC 3.78 L (4.40-5.60) X 10*6/uL Hgb 9.9 L (13.0-17.0) g/dL Hct 32.7 L (39.6-50.0) % MCH 26.2 L (27.0-32.0) pg MCHC 30.3 L (32.0-37.0) g/dL RDW 18.0 H (11.5-14.5) % Carbon Dioxide 21.4 L (21.6-31.8) mmol/L Glucose 159 H (70-110) mg/dL POC Glucose (mg/dL) 178 H (70-110) mg/dL Calcium 8.5 L (8.7-10.3) mg/dL 07/11/23 Range/Units 11:42 RBC (4.40-5.60) X 10*6/uL Hgb (13.0-17.0) g/dL Hct (39.6-50.0) % MCH (27.0-32.0) pg MCHC (32.0-37.0) g/dL RDW (11.5-14.5) % Carbon Dioxide (21.6-31.8) mmol/L Glucose (70-110) mg/dL POC Glucose (mg/dL) 199 H (70-110) mg/dL Calcium (8.7-10.3) mg/dL Microbiology - Last 24 Hours (Table) 07/08/23 22:27 Gram Stain - Final Foot - Left Wound Culture - Final Beta Hemolytic Strep Group G Assessment and Plan (1) Diabetic infection of left foot Current Visit: Yes Status: Acute Code(s): E11.628 - TYPE 2 DIABETES MELLITUS WITH OTHER SKIN COMPLICATIONS; L08.9 - LOCAL INFECTION OF THE SKIN AND SUBCUTANEOUS TISSUE, UNSP SNOMED Code(s): 55926098 (2) Type 2 diabetes mellitus with foot ulcer Current Visit: Yes Status: Acute Code(s): E11.621 - TYPE 2 DIABETES MELLITUS WITH FOOT ULCER; L97.509 - NON-PRESSURE CHRONIC ULCER OTH PRT UNSP FOOT W UNSP SEVERITY SNOMED Code(s): 259268895 Plan: 1patient presented to hospital with extensive left diabetic foot infection in this patient noted to have history of left transmetatarsal amputation did have a purulent drainage on the dorsum aspect of the left foot with a wound on the plantar aspect like etiology of this infection concerning for possible abscess a nd will need to cover for the polymicrobial paula 2-local cultures currently pending, CT did show significant normality but no drainable abscess, the patient has been evaluated by vascular surgery status post removal of the foreign body and excisional debridement 3-patient local culture growing group G strep continue with Unasyn discontinue vancomycin Dictation was produced using [employer] dictation software. please excuse any grammatical, word or spelling errors. Time with Patient: Less than 30
[2023-07-11 16:49] LABS: Glucose,Whole Blood 188 mg/dL (70-110)
[2023-07-11 20:27] LABS: Glucose,Whole Blood 176 mg/dL (70-110)
[2023-07-12] MEDS ORDERED: ACETAMINOPHEN TAB 325 MG TAB PO PRN (06:00)
--- NOTE | 2023-07-12 06:06 | P.PN ---
Subjective Progress Note Date: 07/11/[address] Bennett 07/10/2023 Patient is currently in preop awaiting to undergo debridement with vascular surgery. Will await surgical report and follow-up with patient postoperatively. 07/11/2023 Patient is seen in follow-up today status post incision and drainage with debridement and removal of surgical staple noted in the left foot with vascular surgery. Preliminary cultures pending and patient is continued on Unasyn with infectious disease following and will await finalized cultures to determine discharge antibiotics. Patient was receiving vancomycin although will discontinue. Patient with mild hypomagnesemia will replace per protocol. Monitor labs closely. Patient is afebrile denies pain in the left foot and continues with surgical dressing at this time. No reports of chest pain or shortness of breath and patient is tolerating diet Review of systems: Constitutional: No reports of fatigue, fever, or chills Cardiovascular: No reports of chest pain or palpitations Respiratory: No reports of shortness of breath or cough GI: No reports of nausea, vomiting, or diarrhea : No reports of dysuria or retention Neurovascular: reports of generalized weakness, denies foot pain All medications have been reviewed PHYSICAL EXAMINATION: GENERAL: The patient is alert and oriented x 3, not in any acute distress. Well developed, well nourished. Elderly appearing HEENT: Pupils are round and equally reacting to light. EOMI. No scleral icterus. No conjunctival pallor. Normocephalic, atraumatic. No pharyngeal erythema. No thyromegaly. CARDIOVASCULAR: S1 and S2 muffled PULMONARY: Chest is clear to auscultation, no wheezing or crackles. ABDOMEN: Soft, nontender, nondistended, normoactive bowel sounds. No palpable organomegaly. MUSCULOSKELETAL: No joint swelling or deformity. EXTREMITIES: No cyanosis, clubbing, or pedal edema. Left foot surgical dressing is dry and intact NEUROLOGICAL: Gross neurological examination did not reveal any focal deficits. Diffusely weak SKIN: No rashes. Assessment: Left foot diabetic wounds with concerns of infection, present on admission, status post debridement with vascular surgery Foreign body of the left foot noted on imaging, removed during debridement, surgical stable per vascular surgery History of diabetes mellitus, uncontrolled with hyperglycemia Previous history of transmetatarsal amputation on the left Hypertension Hypomagnesemia Hyperlipidemia Dementia history Erectile dysfunction history GI prophylaxis DVT prophylaxis Full code Plan: Patient underwent I&D with vascular surgery and removal of foreign body as noted on imaging. Noted to be a surgical staple. Cultures obtained and pending at this time and patient will continue on Unasyn per ID recommendations. Vancomycin discontinued Continue monitoring Accu-Cheks before meals and at bedtime and will add sliding scale as needed Follow-up on repeat labs. Replace magnesium per protocol PT/OT therapy for evaluation Case management consult regarding discharge planning, unsure if patient will require ECF on discharge Continue with local wound care per vascular surgery as well as ID recommendations Due to multiple complex medical issues, overall prognosis is guarded The impression and plan of care has been dictated by Gayatri Shepherd, Nurse Practitioner as directed. Dr. Zechariah MD I have performed a history and examination and MDM of this patient, discussed the same with the dictator, and agree with the dictator's assessment and plan as written ,documented as a scribe. Based on total visit time, I have performed more than 50% of the visit. Objective - Vital Signs Vital signs: Vital Signs Temp 98.4 F 07/11/23 07:54 Pulse 68 07/11/23 07:54 Resp 15 07/11/23 07:54 BP 130/63 07/11/23 07:54 Pulse Ox 96 07/11/23 07:54 FiO2 Intake & Output 07/10/23 07/11/23 07/11/23 18:59 06:59 18:59 Intake Total 300 Output Total 10 Balance 290 Intake: IV 300 Output: Estimated Blood Loss 10 Other: Voiding Method Toilet # Voids 3 3 - Labs CBC & Chem 7: 07/11/23 06:33 07/11/23 06:33 Labs: Abnormal Lab Results - Last 24 Hours (Table) 07/10/23 07/10/23 07/10/23 Range/Units 13:52 16:20 20:35 RBC (4.40-5.60) X 10*6/uL Hgb (13.0-17.0) g/dL Hct (39.6-50.0) % MCH (27.0-32.0) pg MCHC (32.0-37.0) g/dL RDW (11.5-14.5) % Carbon Dioxide (21.6-31.8) mmol/L Glucose (70-110) mg/dL POC Glucose (mg/dL) 196 H 201 H 263 H (70-110) mg/dL Calcium (8.7-10.3) mg/dL 07/11/23 07/11/23 07/11/23 Range/Units 06:15 06:33 06:33 RBC 3.78 L (4.40-5.60) X 10*6/uL Hgb 9.9 L (13.0-17.0) g/dL Hct 32.7 L (39.6-50.0) % MCH 26.2 L (27.0-32.0) pg MCHC 30.3 L (32.0-37.0) g/dL RDW 18.0 H (11.5-14.5) % Carbon Dioxide 21.4 L (21.6-31.8) mmol/L Glucose 159 H (70-110) mg/dL POC Glucose (mg/dL) 178 H (70-110) mg/dL Calcium 8.5 L (8.7-10.3) mg/dL 07/11/23 Range/Units 11:42 RBC (4.40-5.60) X 10*6/uL Hgb (13.0-17.0) g/dL Hct (39.6-50.0) % MCH (27.0-32.0) pg MCHC (32.0-37.0) g/dL RDW (11.5-14.5) % Carbon Dioxide (21.6-31.8) mmol/L Glucose (70-110) mg/dL POC Glucose (mg/dL) 199 H (70-110) mg/dL Calcium (8.7-10.3) mg/dL Microbiology - Last 24 Hours (Table) 07/08/23 22:27 Gram Stain - Final Foot - Left Wound Culture - Final Beta Hemolytic Strep Group G
[2023-07-12 06:19] LABS: Glucose,Whole Blood 207 mg/dL (70-110)
[2023-07-12] MEDS: MAGNESIUM SULFATE-D5W PMX 1 GM in DEXTROSE/WATER 1 100ML.BAG IVPB SCH (06:43)
[2023-07-12 11:36] LABS: Glucose,Whole Blood 376 mg/dL (70-110)
[2023-07-12] MEDS ORDERED: VANCOMYCIN TROUGH DUE 1 EACH MISC MISCELLANE ONE (14:00)
[2023-07-12] MEDS ORDERED: LIDOCAINE 1% (10MG/ML) FOR IV START INTRADERMA PRN (15:46)
[2023-07-12] MEDS ORDERED: HYDROmorphone 0.5 MG/0.5 ML SYRINGE IVP PRN (15:46)
[2023-07-12 15:55] LABS: African American GFR (CKD) >90 (>60 ml/min/1.73 sqM); Non-African American GFR(CKD) >90 (>60 ml/min/1.73 sqM)
[2023-07-12] MEDS: DEXAMETHASONE SOD PHOSPHATE 4 MG/ML 1 ML VIAL IV ONE (15:57)
[2023-07-12] MEDS: LACTATED RINGERS 1,000 ML IV SCH (15:57)
[2023-07-12] MEDS: ONDANSETRON 4 MG/2 ML VIAL IVP ONE (15:58)
[2023-07-12 16:20] LABS: Glucose,Whole Blood 193 mg/dL (70-110)
[2023-07-12] MEDS: INSULIN DETEMIR (LEVEMIR) 100 UNIT/ML SYR SQ SCH (16:40)
--- NOTE | 2023-07-12 20:12 | P.PN ---
Subjective Progress Note Date: 07/12/23 Objective - Vital Signs Vital signs: Vital Signs Temp 98.4 F 07/12/23 14:25 Pulse 68 07/12/23 17:12 Resp 18 07/12/23 14:25 BP 130/69 07/12/23 17:12 Pulse Ox 96 07/12/23 17:12 FiO2 Intake & Output 07/12/23 07/12/23 07/13/23 06:59 18:59 06:59 Intake Total 100 Output Total 400 Balance -300 Intake: Oral 100 Output: Urine 400 Other: # Voids 3 5 - Labs CBC & Chem 7: 07/11/23 06:33 07/12/23 15:28 Labs: Abnormal Lab Results - Last 24 Hours (Table) 07/08/23 07/11/23 07/12/23 Range/Units 08:15 20:26 06:18 Creatinine (0.66-1.25) mg/dL POC Glucose (mg/dL) 176 H 207 H (70-110) mg/dL Hemoglobin A1c 9.1 H (<=6.0) % 07/12/23 07/12/23 07/12/23 Range/Units 11:34 15:28 16:18 Creatinine 0.64 L (0.66-1.25) mg/dL POC Glucose (mg/dL) 376 H 193 H (70-110) mg/dL Hemoglobin A1c (<=6.0) % Microbiology - Last 24 Hours (Table) 07/08/23 22:27 Anaerobic Culture - Final Foot - Left Anaerobic Gm Negative Bacilli 07/10/23 13:39 Gram Stain - Preliminary Foot - Left Assessment and Plan Assessment: 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
[2023-07-12 20:38] LABS: Glucose,Whole Blood 219 mg/dL (70-110)
--- NOTE | 2023-07-12 20:49 | P.PN ---
Subjective Progress Note Date: 07/12/23 Principal diagnosis: Reason for follow-up is left diabetic foot infection Patient is a 73-year-old male with a past medical history significant for type 2 diabetes mellitus hypertension hyperlipidemia history of left diabetic foot infection requiring transmetatarsal amputation has been dealing with a chronic nonhealing wound on the plantar aspect of the left foot, pr esented to hospital worsening pain and swelling to the left foot concerning for diabetic foot infection and abscess.Patient is status post removal of retained foreign body and excisional debridement of the left foot wound x 2 by vascular surgery on 07/10/2023 On today's evaluation that is 07/12/2023,the patient remains to be afebrile, patient is on room air not requiring supplemental oxygen and breathing comfortably no distress patient noted to be resting peacefully no vomiting diarrhea and the changes reported by the nursing staff. Patient did have a creatinine 0.64 vancomycin trough is 7.1, local culture growing anaerobes and group G strep Objective - Vital Signs Vital signs: Vital Signs Temp 98.6 F 07/12/23 00:45 Pulse 69 07/12/23 00:45 Resp 15 07/12/23 00:45 BP 135/54 07/12/23 00:45 Pulse Ox 97 07/12/23 00:45 FiO2 Intake & Output 07/11/23 07/12/23 07/12/23 18:59 06:59 18:59 Other: Voiding Method Toilet # Voids 2 3 5 - Labs CBC & Chem 7: 07/11/23 06:33 07/12/23 15:28 Labs: Abnormal Lab Results - Last 24 Hours (Table) 07/11/23 07/11/23 07/11/23 Range/Units 06:33 06:33 11:42 RBC 3.78 L (4.40-5.60) X 10*6/uL Hgb 9.9 L (13.0-17.0) g/dL Hct 32.7 L (39.6-50.0) % MCH 26.2 L (27.0-32.0) pg MCHC 30.3 L (32.0-37.0) g/dL RDW 18.0 H (11.5-14.5) % Carbon Dioxide 21.4 L (21.6-31.8) mmol/L Glucose 159 H (70-110) mg/dL POC Glucose (mg/dL) 199 H (70-110) mg/dL Calcium 8.5 L (8.7-10.3) mg/dL 07/11/23 07/11/23 07/12/23 Range/Units 16:48 20:26 06:18 RBC (4.40-5.60) X 10*6/uL Hgb (13.0-17.0) g/dL Hct (39.6-50.0) % MCH (27.0-32.0) pg MCHC (32.0-37.0) g/dL RDW (11.5-14.5) % Carbon Dioxide (21.6-31.8) mmol/L Glucose (70-110) mg/dL POC Glucose (mg/dL) 188 H 176 H 207 H (70-110) mg/dL Calcium (8.7-10.3) mg/dL Microbiology - Last 24 Hours (Table) 07/10/23 13:39 Gram Stain - Preliminary Foot - Left 07/08/23 22:27 Gram Stain - Final Foot - Left Wound Culture - Final Beta Hemolytic Strep Group G Assessment and Plan (1) Diabetic infection of left foot Current Visit: Yes Status: Acute Code(s): E11.628 - TYPE 2 DIABETES MELLITUS WITH OTHER SKIN COMPLICATIONS; L08.9 - LOCAL INFECTION OF THE SKIN AND SUBCUTANEOUS TISSUE, UNSP SNOMED Code(s): 06424300 (2) Type 2 diabetes mellitus with foot ulcer Current Visit: Yes Status: Acute Code(s): E11.621 - TYPE 2 DIABETES MELLITUS WITH FOOT ULCER; L97.509 - NON-PRESSURE CHRONIC ULCER OTH PRT UNSP FOOT W UNSP SEVERITY SNOMED Code(s): 224976558 Plan: 1patient presented to hospital with extensive left diabetic foot infection in this patient noted to have history of left transmetatarsal amputation did have a purulent drainage on the dorsum aspect of the left foot with a wound on the plantar aspect like etiology of this infection concerning for possible abscess and will need to cover for the polymicrobial paula 2-local cultures currently pending, CT did show significant normality but no drainable abscess, the patient has been evaluated by vascular surgery status post removal of the foreign body and excisional debridement 3-patient local culture growing group G strep along with anaerobes for the patient is covered with Unasyn to continue and monitor clinical course closely, vancomycin trough is low but was already discontinued Dictation was produced using [employer] dictation software. please excuse any grammatical, word or spelling errors. Time with Patient: Less than 30
[2023-07-13 02:05] LABS: Glucose,Whole Blood 140 mg/dL (70-110)
[2023-07-13 06:35] LABS: Glucose,Whole Blood 119 mg/dL (70-110)
--- NOTE | 2023-07-13 09:29 | PN ---
PROGRESS NOTE DATE OF SERVICE: 07/12/2023 This is a 73-year-old gentleman who was admitted with left foot diabetic ulcer, had excisional debridement and removal of the foreign body per Dr. Puga. The patient is closely monitored. At this time, the cultures are showing anaerobic gram-negative bacilli and beta-hemolytic strep group G. The patient is currently on Unasyn. The patient is closely monitored. PAST MEDICAL HISTORY: Reviewed. REVIEW OF SYSTEMS: Fourteen-point review of systems negative except as mentioned earlier. CURRENT MEDICATIONS: Reviewed include IV Unasyn. Dose and rest of medications noted. PHYSICAL EXAM: VITAL SIGNS: Pulse 69, blood pressure 134/52, respirations 16. CHEST: Few scattered rhonchi and crackles. ABDOMEN: Soft, nontender. LEGS: Right foot cellulitis. NERVOUS SYSTEM: Nonfocal. LABORATORY DATA: Accu-Cheks 376. Hemoglobin 9.9. Rest are not available. ASSESSMENT: 1. Status post excisional debridement of the left foot wound and removal of the foreign body. Anaerobic gram-negative bacilli and beta-hemolytic strep group G from the cultures. 2. Diabetes mellitus type 2, uncontrolled. 3. Anemia, multifactorial. 4. Hypertension. 5. Hyperlipidemia. 6. History of MRSA. RECOMMENDATIONS AND DISCUSSION: This 73-year-old gentleman presented with multiple complex medical issues. At this time, I would recommend to continue the antibiotics. DVT prophylaxis. Monitor blood sugars closely. Adjust insulins and further recommendations to follow. Prognosis guarded. See orders for details. Hemoglobin A1c is 9.1. I would add Levemir 10 units subcu b.i.d. and continue to monitor. MMODL / IJN: [id number] /
[2023-07-13 09:35] LABS: Basophils # (A) 0.04 X 10*3/uL (0.00-0.10); Basophils % (A) 0.5 %; Eosinophils # (A) 0.48 X 10*3/uL (0.04-0.35); Eosinophils % (A) 6.1 %; HCT 34.7 % (39.6-50.0); HGB 10.5 g/dL (13.0-17.0); Lymphocytes # (A) 2.02 X 10*3/uL (0.90-5.00); Lymphocytes % (A) 25.6 %; MCH 26.2 pg (27.0-32.0); MCHC 30.3 g/dL (32.0-37.0); MCV 86.5 FL (80.0-97.0); Monocytes # (A) 0.59 X 10*3/uL (0.20-1.00); Monocytes % (A) 7.5 %; NRBC Per 100 WBC 0 X 10*3/uL (0.00-0.01); Neutrophils # (A) 4.73 X 10*3/uL (1.80-7.70); Neutrophils % (A) 59.9 %; Platelet Count 230 X 10*3/uL (140-440); RBC 4.01 X 10*6/uL (4.40-5.60); RDW 18.1 % (11.5-14.5); WBC 7.89 X 10*3/uL (4.50-10.00)
[2023-07-13 11:23] LABS: Glucose,Whole Blood 221 mg/dL (70-110)
[2023-07-13 13:29] VITALS: BMI 26.8
[2023-07-13 14:19] LABS: BUN/Creat Ratio 14.17 Ratio (12.00-20.00); Blood Urea Nitrogen 8.5 mg/dL (9.0-27.0); Carbon Dioxide 21.5 mmol/L (21.6-31.8); Chloride 107 mmol/L (96-109); Glucose 124 mg/dL (70-110); Potassium 3.9 mmol/L (3.5-5.5); Sodium 141 mmol/L (135-145)
[2023-07-13 14:20] LABS: ALT <5 U/L (10-49); AST 9 U/L (14-35); Albumin 3.4 g/dL (3.8-4.9); Albumin/Globulin Ratio 1.31 Ratio (1.60-3.17); Alkaline Phosphatase 118 U/L (41-126); Calcium 9.1 mg/dL (8.7-10.3); Globulin 2.6 g/dL (1.6-3.3); Total Bilirubin 0.2 mg/dL (0.3-1.2)
[2023-07-13 16:39] LABS: Glucose,Whole Blood 305 mg/dL (70-110)
--- NOTE | 2023-07-13 18:05 | CT ---
EXAMINATION TYPE: CT angio abd aorta w/Runoff DATE OF EXAM: 07/12/2023 COMPARISON: None HISTORY: occlusion CT DLP: 2533.8 mGycm Automated exposure control for dose reduction was used. Contrast: None Technique: Axial images 2 mm thick sections. Reconstructed images in the coronal and sagittal plane. Three-D reconstructed images are performed through the runoff. FINDINGS: Limited CT sections are obtained from the lung bases which are clear. CT ABDOMEN: Liver contains a 1.3 cm cyst. Some mild fatty infiltration may be present. Spleen is unre markable in the arterial phase. Adrenal glands are normal. Pancreas is unremarkable. Gallbladder is n ormal. There is a cyst at the anterior portion right mid kidney measuring 4.1 cm. No masses or hydron ephrosis are evident. On some mild prominence of the left renal collecting system is present. There i s a mild left hydroureter. This becomes more marked within the pelvis. This extends to the ureteral v esicle junction. No etiology for obstruction is evident. There is some milder right ureteral prominen ce. Loops of bowel within the abdomen and pelvis without contrast are unremarkable. Diverticular do ges are within the descending colon and sigmoid colon. The appendix is not identified. Some minimal f luid adjacent to the cecum. Urinary bladder is some mild eccentric wall thickening. Prostate appears somewhat prominent. There is adenopathy within the inguinal region. Enlarged slightly dense lymph node appears to be pres ent measuring 1.4 cm in the left inguinal region. Aorta: Vascular calcifications within the aorta. The aorta tapers normally through its visualized cou rse. Celiac axis and superior mesenteric artery take offs appear normal. Renal artery origins appear normal. Aortic bifurcation is normal. Common iliac arteries are patent. Internal and external iliac v essels patent. Common femoral arteries are patent. Vascular calcification is present. Some narrowing of the distal left common carotid artery is likely present. Milder narrowing is present at the right distal common carotid artery. Profunda femoris and superficial femoral arteries are patent. Lower extremity runoff: Superficial femoral arteries are patent to the obturator canals. Some calcifi cation is present at the right obturator canal origin likely with some moderate narrowing. Some moder ate narrowing may be present in the proximal to midportion of the left official femoral artery at the obturator canal. Bilateral more severe stenosis in the distal superficial femoral arteries prior to the popliteal artery origins. Popliteal arteries appear to be patent with contrast present. Vascular calcification is present however. Significant areas of narrowing within the popliteal arteries likely present. Trifurcation vessels contain calcification. Small amount of contrast is present suggesting some vascu larity within the trifurcation vessels. These are better visualized on the left than the right. Left posterior tibial artery may be patent to the level of the ankle. There is poor visualization of the p eroneal artery on the left and the anterior tibial artery is poorly visualized beyond the distal thir d calf. There is calcification within the anterior and posterior tibial arteries. The posterior tibia l artery is likely patent at the level of the ankle. Right Peroneal artery is not identified beyond t he distal third. IMPRESSION: 1. FOCAL FORAMINAL STENOSIS AT THE DISTAL COMMON CAROTID ARTERIES BILATERALLY. 2. FOCAL AREAS OF NARROWING, GREATER WITHIN THE DISTAL SUPERFICIAL FEMORAL ARTERIES BILATERALLY PRIOR TO THE POPLITEAL ARTERIES. 3. POPLITEAL ARTERIES APPEAR DIFFUSELY STENOTIC WITH MORE FOCAL CALCIFIC PLAQUES CAUSING MORE SEVERE NARROWING. 4. TRIFURCATION VESSEL STENOSIS. POSTERIOR TIBIAL ARTERIES ARE LIKELY PRESENT AT THE LEVEL OF THE ANK LES TO A LIMITED DEGREE. REMAINING TRIFURCATION VESSELS ARE POORLY VISUALIZED.
[2023-07-13 20:32] LABS: Glucose,Whole Blood 368 mg/dL (70-110)
[2023-07-13] MEDS: INSULIN DETEMIR (LEVEMIR) 100 UNIT/ML SYR SQ SCH (20:39)
[2023-07-13] MEDS ORDERED: INSULIN DETEMIR (LEVEMIR) 100 UNIT/ML SYR SQ SCH (21:00)
--- NOTE | 2023-07-14 02:40 | PN ---
PROGRESS NOTE DATE OF SERVICE: 07/13/2023 SUBJECTIVE: This is a 73-year-old gentleman who was admitted after excisional debridement of the left foot wound and removal of the foreign body, is being closely monitored. Dr. Puga, Infectious Disease following the patient closely. CT angio has been ordered. No chest pain. No palpitation. PHYSICAL EXAMINATION: VITAL SIGNS: Pulse 67, blood pressure 140/80, and respirations 17. CHEST: Clear to auscultation. CARDIOVASCULAR: S1 and S2. ABDOMEN: Soft. EXTREMITIES: Left foot infection present. LABORATORY DATA: Reviewed. Wound cultures, anaerobic gram-negative vastly and beta-hemolytic strep group G, final report is pending. ASSESSMENT: 1. Status post excisional debridement of the left foot wound and removal of foreign body. 2. Anaerobic gram-negative vastly and beta-hemolytic strep group G from the culture. 3. Diabetes mellitus, type 2, uncontrolled. 4. Anemia, multifactorial. 5. Hypertension. 6. Hyperlipidemia. 7. History of methicillin-resistant Staphylococcus aureus. RECOMMENDATIONS: I recommend to continue current medications and symptomatic treatment. Otherwise, continue with antibiotics. Blood sugars are slightly better currently. I would recommend to increase the Levemir to 15 b.i.d. at this time. MMODL / IJN: [id number] /
[2023-07-14 06:01] LABS: Glucose,Whole Blood 120 mg/dL (70-110)
[2023-07-14 09:28] LABS: HCT 35.2 % (39.6-50.0); HGB 10.9 g/dL (13.0-17.0); MCH 27.1 pg (27.0-32.0); MCV 87.6 FL (80.0-97.0); Mean Platelet Volume 11.4 FL (9.5-12.2); NRBC Per 100 WBC 0 X 10*3/uL (0.00-0.01); Platelet Count 234 X 10*3/uL (140-440); RBC 4.02 X 10*6/uL (4.40-5.60); RDW 18.1 % (11.5-14.5); WBC 8.28 X 10*3/uL (4.50-10.00)
[2023-07-14 09:29] LABS: Basophils # (A) 0.04 X 10*3/uL (0.00-0.10); Basophils % (A) 0.5 %; Eosinophils # (A) 0.42 X 10*3/uL (0.04-0.35); Eosinophils % (A) 5.1 %; Lymphocytes # (A) 2.02 X 10*3/uL (0.90-5.00); Lymphocytes % (A) 24.4 %; Monocytes # (A) 0.62 X 10*3/uL (0.20-1.00); Monocytes % (A) 7.5 %; Neutrophils # (A) 5.16 X 10*3/uL (1.80-7.70); Neutrophils % (A) 62.3 %
[2023-07-14 09:37] LABS: BUN/Creat Ratio 14.17 Ratio (12.00-20.00); Blood Urea Nitrogen 8.5 mg/dL (9.0-27.0); Calcium 8.8 mg/dL (8.7-10.3); Carbon Dioxide 21.6 mmol/L (21.6-31.8); Chloride 107 mmol/L (96-109); Glucose 126 mg/dL (70-110); Potassium 3.7 mmol/L (3.5-5.5); Sodium 141 mmol/L (135-145)
[2023-07-14 11:57] LABS: Glucose,Whole Blood 181 mg/dL (70-110)
--- NOTE | 2023-07-14 15:06 | US ---
EXAMINATION TYPE: US venous doppler duplex LE LT DATE OF EXAM: 07/14/2023 2:46 PM COMPARISON: NONE CLINICAL INDICATION: Male, 73 years old with history of swelling, rule out dvt; edema SIDE PERFORMED: Left TECHNIQUE: The lower extremity deep venous system is examined utilizing real time linear array sonog nay with graded compression, doppler sonography and color-flow sonography. VESSELS IMAGED: Common Femoral Vein Deep Femoral Vein Greater Saphenous Vein * Femoral Vein Popliteal Vein Small Saphenous Vein * Proximal Calf Veins (* superficial vessels) Left Leg: Negative for DVT Gayscale, color doppler, spectral doppler imaging performed of the deep veins of the lower extremitie s. There is normal flow, compressibility, vascular waveforms. IMPRESSION: No evidence of DVT in the left lower extremity.
[2023-07-14 17:05] LABS: Glucose,Whole Blood 223 mg/dL (70-110)
--- NOTE | 2023-07-14 18:38 | P.PN ---
Subjective Progress Note Date: 07/14/[address] Bennett 07/10/2023 Patient is currently in preop awaiting to undergo debridement with vascular surgery. Will await surgical report and follow-up with patient postoperatively. 07/11/2023 Patient is seen in follow-up today status post incision and drainage with debridement and removal of surgical staple noted in the left foot with vascular surgery. Preliminary cultures pending and patient is continued on Unasyn with infectious disease following and will await finalized cultures to determine discharge antibiotics. Patient was receiving vancomycin although will discontinue. Patient with mild hypomagnesemia will replace per protocol. Monitor labs closely. Patient is afebrile denies pain in the left foot and continues with surgical dressing at this time. No reports of chest pain or shortness of breath and patient is tolerating diet 07/14/2023 Patient is seen in follow-up today with vascular surgery and infectious disease following. Patient is status post debridement of the left wound with removal of surgical staple from previous intervention. Patient's most recent cultures remain negative and infectious disease following and will discuss further regarding discharge planning on antibiotic therapy. Patient to be evaluated by physical therapy as well and discuss further with case management regarding possible ECF. Patient is afebrile with no reports of chest pain or shortness of breath. Review of systems: Constitutional: No reports of fatigue, fever, or chills Cardiovascular: No reports of chest pain or palpitations Respiratory: No reports of shortness of breath or cough GI: No reports of nausea, vomiting, or diarrhea : No reports of dysuria or retention Neurovascular: reports of generalized weakness, denies foot pain All medications have been reviewed PHYSICAL EXAMINATION: GENERAL: The patient is alert and oriented x 3, not in any acute distress. Well developed, well nourished. Elderly appearing HEENT: Pupils are round and equally reacting to light. EOMI. No scleral icterus. No conjunctival pallor. Normocephalic, atraumatic. No pharyngeal erythema. No thyromegaly. CARDIOVASCULAR: S1 and S2 muffled PULMONARY: Chest is clear to auscultation, no wheezing or crackles. ABDOMEN: Soft, nontender, nondistended, normoactive bowel sounds. No palpable organomegaly. MUSCULOSKELETAL: No joint swelling or deformity. EXTREMITIES: No cyanosis, clubbing, or pedal edema. Left foot surgical dressing is dry and intact NEUROLOGICAL: Gross neurological examination did not reveal any focal deficits. Diffusely weak SKIN: No rashes. 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 Noted to be a surgical staple. Cultures obtained and have been negative. Patient will continue on Unasyn per ID recommendations. Vancomycin discontinued. To discuss further with infectious disease regarding antibiotics on discharge Continue monitoring Accu-Cheks before meals and at bedtime and will add sliding scale as needed Follow-up on repeat labs. Replace magnesium per protocol PT/OT therapy for evaluation Case management consult regarding discharge planning, unsure if patient will require ECF on discharge Continue with local wound care per vascular surgery as well as ID recommendations Patient is extremely concerned with his history of erectile dysfunction and repo rts has followed up with his primary care provider along with urology with no results. Patient has been instructed to follow-up with Dr. Carlos Bennett on discharge. Due to multiple complex medical issues, overall prognosis is guarded Possible discharge in the next 24 to 48 hours The impression and plan of care has been dictated by Gayatri Shepherd, Nurse Practitioner as directed. Dr. Zechariah MD I have performed a history and examination and MDM of this patient, discussed the same with the dictator, and agree with the dictator's assessment and plan as written ,documented as a scribe. Based on total visit time, I have performed more than 50% of the visit. Objective - Vital Signs Vital signs: Vital Signs Temp 98.0 F 07/14/23 08:00 Pulse 68 07/14/23 08:00 Resp 17 07/14/23 08:00 BP 154/64 07/14/23 08:00 Pulse Ox 94 L 07/14/23 08:00 FiO2 Intake & Output 07/13/23 07/14/23 07/14/23 18:59 06:59 18:59 Output Total 400 Balance -400 Weight 84.822 kg Output: Urine 400 Other: Voiding Method Toilet Toilet # Voids 6 - Labs CBC & Chem 7: 07/14/23 04:18 07/14/23 04:18 Labs: Abnormal Lab Results - Last 24 Hours (Table) 07/13/23 07/13/23 07/13/23 Range/Units 06:56 16:38 20:30 RBC (4.40-5.60) X 10*6/uL Hgb (13.0-17.0) g/dL Hct (39.6-50.0) % MCHC (32.0-37.0) g/dL RDW (11.5-14.5) % Eosinophils # (0.04-0.35) X 10*3/uL Carbon Dioxide 21.5 L (21.6-31.8) mmol/L Anion Gap 12.50 H (4.00-12.00) mmol/L BUN 8.5 L (9.0-27.0) mg/dL Glucose 124 H (70-110) mg/dL POC Glucose (mg/dL) 305 H 368 H (70-110) mg/dL Total Bilirubin 0.2 L (0.3-1.2) mg/dL AST 9 L (14-35) U/L ALT <5 L (10-49) U/L Total Protein 6.0 L (6.2-8.2) g/dL Albumin 3.4 L (3.8-4.9) g/dL Albumin/Globulin Ratio 1.31 L (1.60-3.17) Ratio 07/14/23 07/14/23 07/14/23 Range/Units 04:18 04:18 06:00 RBC 4.02 L (4.40-5.60) X 10*6/uL Hgb 10.9 L (13.0-17.0) g/dL Hct 35.2 L (39.6-50.0) % MCHC 31.0 L (32.0-37.0) g/dL RDW 18.1 H (11.5-14.5) % Eosinophils # 0.42 H (0.04-0.35) X 10*3/uL Carbon Dioxide (21.6-31.8) mmol/L Anion Gap 12.40 H (4.00-12.00) mmol/L BUN 8.5 L (9.0-27.0) mg/dL Glucose 126 H (70-110) mg/dL POC Glucose (mg/dL) 120 H (70-110) mg/dL Total Bilirubin (0.3-1.2) mg/dL AST (14-35) U/L ALT (10-49) U/L Total Protein (6.2-8.2) g/dL Albumin (3.8-4.9) g/dL Albumin/Globulin Ratio (1.60-3.17) Ratio 07/14/23 Range/Units 11:56 RBC (4.40-5.60) X 10*6/uL Hgb (13.0-17.0) g/dL Hct (39.6-50.0) % MCHC (32.0-37.0) g/dL RDW (11.5-14.5) % Eosinophils # (0.04-0.35) X 10*3/uL Carbon Dioxide (21.6-31.8) mmol/L Anion Gap (4.00-12.00) mmol/L BUN (9.0-27.0) mg/dL Glucose (70-110) mg/dL POC Glucose (mg/dL) 181 H (70-110) mg/dL Total Bilirubin (0.3-1.2) mg/dL AST (14-35) U/L ALT (10-49) U/L Total Protein (6.2-8.2) g/dL Albumin (3.8-4.9) g/dL Albumin/Globulin Ratio (1.60-3.17) Ratio Microbiology - Last 24 Hours (Table) 07/10/23 13:39 Anaerobic Culture - Preliminary Foot - Left
[2023-07-14 20:26] LABS: Glucose,Whole Blood 276 mg/dL (70-110)
[2023-07-15 06:08] LABS: Glucose,Whole Blood 134 mg/dL (70-110)
--- NOTE | 2023-07-15 07:50 | P.PN ---
Subjective Progress Note Date: 07/13/23 Principal diagnosis: Reason for follow-up is left diabetic foot infection Patient is a 73-year-old male with a past medical history significant for type 2 diabetes mellitus hypertension hyperlipidemia history of left diabetic foot infection requiring transmetatarsal amputation has been dealing with a chronic nonhealing wound on the plantar aspect of the left foot, pr esented to hospital worsening pain and swelling to the left foot concerning for diabetic foot infection and abscess.Patient is status post removal of retained foreign body and excisional debridement of the left foot wound x 2 by vascular surgery on 07/10/2023 On today's evaluation that is 07/13/2023, the patient continues to be afebrile, the patient is on room air and breathing comfortably, the Pt denies having any chest pain or cough, the patient denies having any abdominal pain no vomiting or any diarrhea has been reported by the nursing staff. Patient did have white count of 7.89 creatinine 0.6 Objective - Vital Signs Vital signs: Vital Signs Temp 98.7 F 07/13/23 06:55 Pulse 67 07/13/23 06:55 Resp 17 07/13/23 06:55 BP 145/56 07/13/23 06:55 Pulse Ox 97 07/13/23 06:55 FiO2 Intake & Output 07/12/23 07/13/23 07/13/23 18:59 06:59 18:59 Intake Total 100 Output Total 400 Balance -300 Intake: Oral 100 Output: Urine 400 Other: Voiding Method Toilet # Voids 5 4 # Bowel Movements 1 - Exam GENERAL DESCRIPTION: An elderly male lying in bed in no distress RESPIRATORY SYSTEM: Unlabored breathing , decreased breath sounds at bases HEART: S1 S2 regular rate and rhythm , ABDOMEN: Soft , no tenderness EXTREMITIES: Left foot is currently dressed - Labs CBC & Chem 7: 07/14/23 04:18 07/14/23 04:18 Labs: Abnormal Lab Results - Last 24 Hours (Table) 07/12/23 07/12/23 07/12/23 Range/Units 11:34 15:28 16:18 RBC (4.40-5.60) X 10*6/uL Hgb (13.0-17.0) g/dL Hct (39.6-50.0) % MCH (27.0-32.0) pg MCHC (32.0-37.0) g/dL RDW (11.5-14.5) % Eosinophils # (0.04-0.35) X 10*3/uL Creatinine 0.64 L (0.66-1.25) mg/dL POC Glucose (mg/dL) 376 H 193 H (70-110) mg/dL 07/12/23 07/13/23 07/13/23 Range/Units 20:36 02:03 06:33 RBC (4.40-5.60) X 10*6/uL Hgb (13.0-17.0) g/dL Hct (39.6-50.0) % MCH (27.0-32.0) pg MCHC (32.0-37.0) g/dL RDW (11.5-14.5) % Eosinophils # (0.04-0.35) X 10*3/uL Creatinine (0.66-1.25) mg/dL POC Glucose (mg/dL) 219 H 140 H 119 H (70-110) mg/dL 07/13/23 Range/Units 06:56 RBC 4.01 L (4.40-5.60) X 10*6/uL Hgb 10.5 L (13.0-17.0) g/dL Hct 34.7 L (39.6-50.0) % MCH 26.2 L (27.0-32.0) pg MCHC 30.3 L (32.0-37.0) g/dL RDW 18.1 H (11.5-14.5) % Eosinophils # 0.48 H (0.04-0.35) X 10*3/uL Creatinine (0.66-1.25) mg/dL POC Glucose (mg/dL) (70-110) mg/dL Microbiology - Last 24 Hours (Table) 07/10/23 13:39 Gram Stain - Final Foot - Left Wound Culture - Final 07/08/23 22:27 Anaerobic Culture - Final Foot - Left Anaerobic Gm Negative Bacilli Assessment and Plan (1) Diabetic infection of left foot Current Visit: Yes Status: Acute Code(s): E11.628 - TYPE 2 DIABETES MELLITUS WITH OTHER SKIN COMPLICATIONS; L08.9 - LOCAL INFECTION OF THE SKIN AND SUBCUTANEOUS TISSUE, UNSP SNOMED Code(s): 88364716 (2) Type 2 diabetes mellitus with foot ulcer Current Visit: Yes Status: Acute Code(s): E11.621 - TYPE 2 DIABETES MELLITUS WITH FOOT ULCER; L97.509 - NON-PRESSURE CHRONIC ULCER OTH PRT UNSP FOOT W UNSP SEVERITY SNOMED Code(s): 163004256 Plan: 1patient presented to hospital with extensive left diabetic foot infection in this patient noted to have history of left transmetatarsal amputation did have a purulent drainage on the dorsum aspect of the left foot with a wound on the plantar aspect like etiology of this infection concerning for possible abscess and will need to cover for the polymicrobial paula 2-local cultures currently pending, CT did show significant normality but no drainable abscess, the patient has been evaluated by vascular surgery status post removal of the foreign body and excisional debridement 3-patient local culture growing group G strep along with anaerobes, for the patient is covered with Unasyn to continue and monitor clinical course closely Dictation was produced using [employer] dictation software. please excuse any grammatical, word or spelling errors.
--- NOTE | 2023-07-15 07:52 | P.PN ---
Subjective Progress Note Date: 07/14/23 Principal diagnosis: Reason for follow-up is left diabetic foot infection Patient is a 73-year-old male with a past medical history significant for type 2 diabetes mellitus hypertension hyperlipidemia history of left diabetic foot infection requiring transmetatarsal amputation has been dealing with a chronic nonhealing wound on the plantar aspect of the left foot, pr esented to hospital worsening pain and swelling to the left foot concerning for diabetic foot infection and abscess.Patient is status post removal of retained foreign body and excisional debridement of the left foot wound x 2 by vascular surgery on 07/10/2023 On today's evaluation that is 07/14/2023, Patient is afebrile patient is currently on room air and denies having any shortness of breath, the patient denies any chest pain or cough, the patient denies any nausea vomiting did not have any abdominal pain and no diarrhea patient denies any worsening pain to left foot area Patient white count is 8.28 creatinine 0.6 culture with strep and anaerobe Objective - Vital Signs Vital signs: Vital Signs Temp 97.7 F 07/14/23 14:20 Pulse 64 07/14/23 14:20 Resp 17 07/14/23 14:20 BP 146/61 07/14/23 14:20 Pulse Ox 96 07/14/23 14:20 FiO2 Intake & Output 07/13/23 07/14/23 07/14/23 18:59 06:59 18:59 Output Total 400 Balance -400 Weight 84.822 kg Output: Urine 400 Other: Voiding Method Toilet Toilet # Voids 6 3 - Exam GENERAL DESCRIPTION: An elderly male lying in bed in no distress RESPIRATORY SYSTEM: Unlabored breathing , decreased breath sounds at bases HEART: S1 S2 regular rate and rhythm , ABDOMEN: Soft , no tenderness EXTREMITIES: Left foot wound postsurgical drainage and not deep , bone is not palpable redness has improved - Labs CBC & Chem 7: 07/14/23 04:18 07/14/23 04:18 Labs: Abnormal Lab Results - Last 24 Hours (Table) 07/13/23 07/14/23 07/14/23 Range/Units 20:30 04:18 04:18 RBC 4.02 L (4.40-5.60) X 10*6/uL Hgb 10.9 L (13.0-17.0) g/dL Hct 35.2 L (39.6-50.0) % MCHC 31.0 L (32.0-37.0) g/dL RDW 18.1 H (11.5-14.5) % Eosinophils # 0.42 H (0.04-0.35) X 10*3/uL Anion Gap 12.40 H (4.00-12.00) mmol/L BUN 8.5 L (9.0-27.0) mg/dL Glucose 126 H (70-110) mg/dL POC Glucose (mg/dL) 368 H (70-110) mg/dL 07/14/23 07/14/23 07/14/23 Range/Units 06:00 11:56 17:03 RBC (4.40-5.60) X 10*6/uL Hgb (13.0-17.0) g/dL Hct (39.6-50.0) % MCHC (32.0-37.0) g/dL RDW (11.5-14.5) % Eosinophils # (0.04-0.35) X 10*3/uL Anion Gap (4.00-12.00) mmol/L BUN (9.0-27.0) mg/dL Glucose (70-110) mg/dL POC Glucose (mg/dL) 120 H 181 H 223 H (70-110) mg/dL Assessment and Plan (1) Diabetic infection of left foot Current Visit: Yes Status: Acute Code(s): E11.628 - TYPE 2 DIABETES MELLITUS WITH OTHER SKIN COMPLICATIONS; L08.9 - LOCAL INFECTION OF THE SKIN AND SUBCUTANEOUS TISSUE, UNSP SNOMED Code(s): 92841874 (2) Type 2 diabetes mellitus with foot ulcer Current Visit: Yes Status: Acute Code(s): E11.621 - TYPE 2 DIABETES MELLITUS WITH FOOT ULCER; L97.509 - NON-PRESSURE CHRONIC ULCER OTH PRT UNSP FOOT W UNSP SEVERITY SNOMED Code(s): 910822518 Plan: 1patient presented to hospital with extensive left diabetic foot infection in this patient noted to have history of left transmetatarsal amputation did have a purulent drainage on the dorsum aspect of the left foot with a wound on the plantar aspect like etiology of this infection concerning for possible abscess and will need to cover for the polymicrobial paula 2-local cultures currently pending, CT did show significant normality but no drainable abscess, the patient has been evaluated by vascular surgery status post removal of the foreign body and excisional debridement 3-patient local culture growing group G strep along with anaerobes, 4-we will call the patient on Unasyn however the patient be able to finish therapy with Augmentin x 2 weeks for local wound care with dry Aquacel silver packing of the wound Dictation was produced using [employer] dictation software. please excuse any grammatical, word or spelling errors. Time with Patient: Less than 30
[2023-07-15 08:46] VITALS: BP 154/65; PULSE 69; RESP 17; TEMP 97.7
[2023-07-15 11:47] LABS: Glucose,Whole Blood 220 mg/dL (70-110)
--- NOTE | 2023-07-15 15:38 | P.DS ---
Providers Date of admission: 07/07/23 22:26 Expected date of discharge: 07/15/23 Attending physician: Carlos Bennett Consults: 07/07/23 22:24 Consult Physician Routine Consulting Provider: Fidel Thomas Consult Reason/Comments: osteo Do you want consulting provider notified?: Yes 07/08/23 15:54 Consult Physician Urgent Consulting Provider: Halina Louis Consult Reason/Comments: Left foot abscess for drainage and culture Do you want consulting provider notified?: Yes Primary care physician: Carlos Bennett [facility] Course: Final Diagnoses: Left foot diabetic wounds with concerns of infection, present on admission, status post debridement with vascular surgery Foreign body of the left foot noted on imaging, removed during debridement, surgical staple retained from previous surgery per vascular surgery Diabetes mellitus II, uncontrolled,hyperglycemic, A1c 9.1, further diabetic teaching and adjustment of medications outpatient in clinic with PCP. Previous history of transmetatarsal amputation on the left Hypertension Hypomagnesemia Hyperlipidemia Dementia history This is a 73-year-old gentleman status post nonhealing left foot diabetic wounds with retained foreign body/surgical staple status post excisional debridement with fluoroscopy assisted removal of foreign body. Tolerated procedure well. Pain controlled. Blood sugars currently in the 130s. Reports he was previously put on insulins but could not afford it. Denies chest pain, palpitations or shortness of breath. Maintaining O2 sats in the high 90s on room air. Cleared for discharge by vascular surgery, and infectious disease. Patient will be discharged home today in a stable condition with guarded prognosis. The impression and plan of care has been dictated as directed. : I performed a history and examination of this patient, discussed the same with the dictator. I agree with the dictator's note ,documented as a scribe. Any additional findings or plans will be noted. Patient Condition at Discharge: Stable Plan - Discharge Summary Discharge Rx Participant: No New Discharge Prescriptions: New Insulin Glargine,Hum.rec.anlog [Lantus Solostar Pen] 30 units SQ HS #2 each Insulin Aspart [NovoLOG Flexpen] 0 units SQ ACHS #1 each Acetaminophen Tab [Tylenol] 650 mg PO Q6HR PRN tab PRN Reason: Fever And/ Or Pain Amoxic-Pot Clav 875-125Mg [Augmentin 875-125] 1 tab PO BID 14 Days #28 tab Continue amLODIPine [Norvasc] 10 mg PO DAILY Atorvastatin [Lipitor] 40 mg PO DAILY Isosorbide Mononitrate ER [Imdur] 30 mg PO DAILY lisinopriL [Zestril] 10 mg PO BID-W/MEALS metFORMIN HCL [Glucophage] 1,000 mg PO BID-W/MEALS Metoprolol Tartrate [Lopressor] 50 mg PO BID-W/MEALS glyBURIDE [Diabeta] 5 mg PO BID-W/MEALS Tamsulosin HCl [Flomax] 0.4 mg PO BID-W/MEALS Aspirin 81 mg PO DAILY Finasteride [Proscar] 5 mg PO W/SUPPER Famotidine [Pepcid] 40 mg PO DAILY Discharge Medication List Atorvastatin [Lipitor] 40 mg PO DAILY 05/10/19 [History] Isosorbide Mononitrate ER [Imdur] 30 mg PO DAILY 05/10/19 [History] Metoprolol Tartrate [Lopressor] 50 mg PO BID-W/MEALS 05/10/19 [History] amLODIPine [Norvasc] 10 mg PO DAILY 05/10/19 [History] lisinopriL [Zestril] 10 mg PO BID-W/MEALS 05/10/19 [History] metFORMIN HCL [Glucophage] 1,000 mg PO BID-W/MEALS 05/10/19 [History] Aspirin 81 mg PO DAILY 07/08/23 [History] Famotidine [Pepcid] 40 mg PO DAILY 07/08/23 [History] Finasteride [Proscar] 5 mg PO W/SUPPER 07/08/23 [History] Tamsulosin HCl [Flomax] 0.4 mg PO BID-W/MEALS 07/08/23 [History] glyBURIDE [Diabeta] 5 mg PO BID-W/MEALS 07/08/23 [History] Acetaminophen Tab [Tylenol] 650 mg PO Q6HR PRN tab 07/15/23 [Rx] Amoxic-Pot Clav 875-125Mg [Augmentin 875-125] 1 tab PO BID 14 Days #28 tab 07/15/23 [Rx] Insulin Aspart [NovoLOG Flexpen] 0 units SQ ACHS #1 each 07/15/23 [Rx] Insulin Glargine,Hum.rec.anlog [Lantus Solostar Pen] 30 units SQ HS #2 each 07/15/23 [Rx] Follow up Appointment(s)/Referral(s): Carlos Bennett DO [Primary Care Provider] - 3 Days Donald Bauer DO [Doctor of Osteopathic Medicine] - 2 Weeks [facility], [NON-STAFF] - [facility] [NON-STAFF] - 10 Days Ambulatory/Diagnostic Orders: Complete Blood Count w/diff [LAB.AMB] Time Frame: 3 Days, Location: None Selected Patient Instructions/Handouts: Diabetic Foot Ulcers (DC) Activity/Diet/Wound Care/Special Instructions: Wound care with absorptive silver, saline moist gauze, dry gauze, roll gauze secure with paper tape as previously recommended per wound care team/ID Discharge Disposition: HOME WITH HOME HEALTH SERVICES
--- NOTE | 2023-07-15 17:11 | P.PN ---
Subjective Progress Note Date: 07/15/23 Principal diagnosis: Reason for follow-up is left diabetic foot infection Patient is a 73-year-old male with a past medical history significant for type 2 diabetes mellitus hypertension hyperlipidemia history of left diabetic foot infection requiring transmetatarsal amputation has been dealing with a chronic nonhealing wound on the plantar aspect of the left foot, pr esented to hospital worsening pain and swelling to the left foot concerning for diabetic foot infection and abscess.Patient is status post removal of retained foreign body and excisional debridement of the left foot wound x 2 by vascular surgery on 07/10/2023 On today's evaluation that is 07/15/2023, patient has been afebrile, patient is breathing comfortably and is currently on room air, patient denies having any significant cough no chest pain shortness of breath, patient denies nausea vomiting or diarrhea and no abdominal pain, denies pain to the left foot. No lab has been obtained today Objective - Vital Signs Vital signs: Vital Signs Temp 97.7 F 07/15/23 07:17 Pulse 69 07/15/23 07:17 Resp 17 07/15/23 07:17 BP 154/65 07/15/23 07:17 Pulse Ox 96 07/15/23 07:17 FiO2 Intake & Output 07/14/23 07/15/23 07/15/23 18:59 06:59 18:59 Other: Voiding Method Toilet # Voids 3 3 - Exam GENERAL DESCRIPTION: An elderly male lying in bed in no distress RESPIRATORY SYSTEM: Unlabored breathing , decreased breath sounds at bases HEART: S1 S2 regular rate and rhythm , ABDOMEN: Soft , no tenderness EXTREMITIES: Left foot currently dressed - Labs CBC & Chem 7: 07/14/23 04:18 07/14/23 04:18 Labs: Abnormal Lab Results - Last 24 Hours (Table) 07/14/23 07/14/23 07/15/23 Range/Units 17:03 20:24 06:06 POC Glucose (mg/dL) 223 H 276 H 134 H (70-110) mg/dL 07/15/23 Range/Units 11:45 POC Glucose (mg/dL) 220 H (70-110) mg/dL Assessment and Plan (1) Diabetic infection of left foot Status: Acute Code(s): E11.628 - TYPE 2 DIABETES MELLITUS WITH OTHER SKIN COMPLICATIONS; L08.9 - LOCAL INFECTION OF THE SKIN AND SUBCUTANEOUS TISSUE, UNSP SNOMED Code(s): 38846939 (2) Type 2 diabetes mellitus with foot ulcer Status: Acute Code(s): E11.621 - TYPE 2 DIABETES MELLITUS WITH FOOT ULCER; L97.509 - NON-PRESSURE CHRONIC ULCER OTH PRT UNSP FOOT W UNSP SEVERITY SNOMED Code(s): 103104580 Plan: 1patient presented to hospital with extensive left diabetic foot infection in this patient noted to have history of left transmetatarsal amputation did have a purulent drainage on the dorsum aspect of the left foot with a wound on the plantar aspect like etiology of this infection concerning for possible abscess and will need to cover for the polymicrobial paula 2-local cultures currently pending, CT did show significant normality but no drainable abscess, the patient has been evaluated by vascular surgery status post removal of the foreign body and excisional debridement 3-patient local culture growing group G strep along with anaerobes, 4-patient to finish therapy with Augmentin x 2 weeks on discharge for local wound care with dry Aquacel silver packing of the wound and close outpatient follow-up Dictation was produced using [employer] dictation software. please excuse any grammatical, word or spelling errors. Time with Patient: Less than 30
== END 2023-07-15 13:03 | disposition home health service (06) | DRG 902 ==
LOC: EC 17:29 → 4SSUR 22:26
PROVIDERS: ADMIT Family Medicine; ATTEND Family Medicine
PROC: 0JCR0ZZ Extirpation of Matter from Left Foot Subcutaneous Tissue and Fascia, Open Approach (ICD-10-PCS; 2023-07-10)
PROC: 0JBR0ZZ Excision of Left Foot Subcutaneous Tissue and Fascia, Open Approach (ICD-10-PCS; principal; 2023-07-10 12:30)
DX: T81.590A Other complications of foreign body accidentally left in body following surgical operation, initial encounter (principal); M86.9 Osteomyelitis, unspecified; E11.621 Type 2 diabetes mellitus with foot ulcer; D64.9 Anemia, unspecified; E11.42 Type 2 diabetes mellitus with diabetic polyneuropathy; E11.51 Type 2 diabetes mellitus with diabetic peripheral angiopathy without gangrene; E11.628 Type 2 diabetes mellitus with other skin complications; E11.65 Type 2 diabetes mellitus with hyperglycemia; E11.69 Type 2 diabetes mellitus with other specified complication; E78.5 Hyperlipidemia, unspecified; E83.42 Hypomagnesemia; F03.90 Unspecified dementia, unspecified severity, without behavioral disturbance, psychotic disturbance, mood disturbance, and anxiety; I10 Essential (primary) hypertension; I25.10 Atherosclerotic heart disease of native coronary artery without angina pectoris; L08.9 Local infection of the skin and subcutaneous tissue, unspecified; L97.529 Non-pressure chronic ulcer of other part of left foot with unspecified severity; N52.9 Male erectile dysfunction, unspecified; S90.852A Superficial foreign body, left foot, initial encounter; W45.8XXA Other foreign body or object entering through skin, initial encounter; I25.2 Old myocardial infarction; Z79.4 Long term (current) use of insulin; Z79.82 Long term (current) use of aspirin; Z79.84 Long term (current) use of oral hypoglycemic drugs; Z79.899 Other long term (current) drug therapy; Z85.51 Personal history of malignant neoplasm of bladder; Z86.14 Personal history of Methicillin resistant Staphylococcus aureus infection; Z87.891 Personal history of nicotine dependence; Z95.1 Presence of aortocoronary bypass graft
CPT/HCPCS: 36415; 75635; 80048; 80053; 80202; 82565; 83036; 83605; 83735; 84100; 85025; 87070; 87075; 87205; 93923; 96361; 96365; 96366; 96368; 99291

== ENCOUNTER 2023-08-07 11:23 | Day surgery (SDC) | payer MEDICARE ==
[~2023-08-07 11:23] MED LIST: ALPRAZolam 0.25 MG TAB PO PRN; ASPIRIN 325 MG TAB PO PRN
[2023-08-07] MEDS: IV FLUID CONTINUATION 1,000 ML IV ONE (12:07)
[2023-08-07] MEDS: EMPTY BAG 1 BAG with SODIUM CHLORIDE 0.9% 1,000 ML IV SCH (12:07)
[2023-08-07 12:10] LABS: Glucose,Whole Blood 199 mg/dL (70-110)
[2023-08-07] MEDS ORDERED: fentaNYL (PF) 50 MCG/ML 2 ML AMP ONE (13:41)
[2023-08-07] MEDS ORDERED: LIDOCAINE 1% INJ 10MG/ML (20 ML MDV) ONE (13:45)
[2023-08-07] MEDS: MIDAZOLAM 2 MG/2 ML VIAL IVP ONE (13:53)
[2023-08-07] MEDS: fentaNYL (PF) 50 MCG/ML 2 ML AMP IVP ONE (13:53)
[2023-08-07] MEDS: LIDOCAINE 1% INJ 10MG/ML (20 ML MDV) SQ ONE (13:56)
--- NOTE | 2023-08-07 14:38 | P.OP ---
Date of Procedure: 08/07/23 Preoperative Diagnosis: Nonhealing wounds left foot. Postoperative Diagnosis: Same, secondary to right superficial femoral artery heavily calcified stenosis and tibial artery occlusive disease Procedure(s) Performed: 1: Ultrasound-guided cannulation right common femoral artery. 2: Abdominal aortogram with iliofemoral, popliteal and tibial artery runoffs. 3: Selective catheterization contralateral femoral artery with selective left angiography Implants: None. Anesthesia: MAC (50 mcg of fentanyl and 1 mg of Versed.), local (1% Xylocaine) Surgeon: Donald Bauer Estimated Blood Loss (ml): 10 Pathology: none sent Condition: stable Disposition: no change Indications for Procedure: Patient is a 73-year-old male with history of transmetatarsal amputation of the left foot who is been experiencing intermittent wounds occurring to the left foot. These would heal and then recur. Vascular evaluation demonstrated femoral pulse to be intact with a popliteal, pedal pulses are absent on the left. Arterial Doppler study had been performed which demonstrated arterial insufficiency of the left lower extremity. Patient is now offered angiography with possible intervention. The procedure, risk and benefits were discussed with the patient. All questions were answered patient's satisfaction. Patient wished to proceed. Description of Procedure: Patient was brought to the special procedure suite. Both groins were sterilely prepped and draped in usual manner. Ultrasound was utilized to identify the right common femoral artery. 1% Xylocaine was utilized for local anesthesia tissues overlying the common femoral artery. With the aid of ultrasound and through the anesthetized area a micropuncture needle was utilized to cannulate the artery. Once cannulated soft tipped guidewire was advanced. The needle was withdrawn and a micropuncture sheath and dilator were advanced over the guidewire. The sheath and dilator were withdrawn and a 6 Spanish sheath was placed. Guidewire and Omni Flush catheter combination were advanced to the L1-L2 interspace abdominal aortogram was performed. Subsequently the catheter was pulled down below the aortic bifurcation and abdominal/pelvic/femoral/popliteal and tibial runoff were performed. Less than optimal imaging of the left tibial vessels was encountered due to patient positioning and the catheter was then utilized to select the left common iliac artery. A guidewire was advanced down the iliac artery. The catheter was exchanged for a angled glide catheter. Due to the tortuosity of the iliac vessels was very difficult to advance this catheter and the guidewire was exchanged for a glide advantage wire. The Glidewire was advanced into the superficial femoral artery. It was difficult to advance the angled glide catheter however this was achieved and left femoral angiogram was performed. Once adequate films were obtained catheter was withdrawn as well as the sheath and pressure was held at the puncture site until all evidence of bleeding ceased. Patient tolerated the procedure well. Findings: Abdominal aortogram demonstrates single renal arteries bilaterally without hemodynamically significant renal artery stenosis. The abdominal aorta itself is essentially unremarkable. Left iliac angiography demonstrates the common, external and internal iliacs to be patent without hemodynamically significant stenosis. Severe tortuosity of the external iliac artery is noted. Left femoral angiography demonstrates the common, profundus and proximal to midportion of the superficial femoral artery to be patent without significant disease noted. The distal SFA at the adductor canal was hemodynamically severely stenosed and appeared to to have significant calcific changes associated with it. It was not thought that this lesion would be amenable to pe rcutaneous balloon dilation and possible stenting due to the difficulty in advancing catheters and guidewires due to the tortuosity found in both iliac systems. Left popliteal angiography demonstrates the popliteal artery to be normally patent. Left tibial angiography demonstrates the posterior tibial artery to be patent throughout its entire length and crosses the ankle mortise. Significant disease of both the peroneal and anterior tibial arteries is identified although both do fill at the the level of the distal calf/ankle mortise secondary to collateral flow. Right iliac angiography demonstrates the common, external and internal iliacs to be normally patent. Right femoral angiography demonstrates the common, profundus and superficial femoral arterial segments to be patent without significant disease. Right popliteal angiography demonstrates the popliteal artery to be patent. Total fluoroscopy time: 3.7 minutes. Total contrast volume utilized: 100 mL of Isovue-370. Total moderate conscious sedation time: 24 minutes. Plan - Discharge Summary Discharge Rx Participant: No New Discharge Prescriptions: No Action amLODIPine [Norvasc] 10 mg PO DAILY Atorvastatin [Lipitor] 40 mg PO DAILY Isosorbide Mononitrate ER [Imdur] 30 mg PO DAILY lisinopriL [Zestril] 10 mg PO BID-W/MEALS metFORMIN HCL [Glucophage] 1,000 mg PO BID-W/MEALS Metoprolol Tartrate [Lopressor] 50 mg PO BID-W/MEALS glyBURIDE [Diabeta] 5 mg PO BID-W/MEALS Tamsulosin HCl [Flomax] 0.4 mg PO BID-W/MEALS Aspirin 81 mg PO DAILY Finasteride [Proscar] 5 mg PO BID Famotidine [Pepcid] 40 mg PO DAILY Discharge Medication List Atorvastatin [Lipitor] 40 mg PO DAILY 05/10/19 [History] Isosorbide Mononitrate ER [Imdur] 30 mg PO DAILY 05/10/19 [History] Metoprolol Tartrate [Lopressor] 50 mg PO BID-W/MEALS 05/10/19 [History] amLODIPine [Norvasc] 10 mg PO DAILY 05/10/19 [History] lisinopriL [Zestril] 10 mg PO BID-W/MEALS 05/10/19 [History] metFORMIN HCL [Glucophage] 1,000 mg PO BID-W/MEALS 05/10/19 [History] Aspirin 81 mg PO DAILY 07/08/23 [History] Famotidine [Pepcid] 40 mg PO DAILY 07/08/23 [History] Finasteride [Proscar] 5 mg PO BID 07/08/23 [History] Tamsulosin HCl [Flomax] 0.4 mg PO BID-W/MEALS 07/08/23 [History] glyBURIDE [Diabeta] 5 mg PO BID-W/MEALS 07/08/23 [History]
[2023-08-07] MEDS ORDERED: DEXTROSE 50% SYRINGE 50 ML IVP PRN (15:10)
--- NOTE | 2023-08-07 15:57 | IR ---
EXAMINATION TYPE: IR angio abdominal w runoff Intraoperative/procedural fluoroscopic services were pr ovided. CLINICAL INDICATION:Male, 73 years old with history of left leg pain, 3.7min fluoro, 48.6Gycm2; , [facility] Total fluoroscopy time is 3.7 min. DAP: 9.69 Gycm2 Please see the operative/procedural note for further details.
[2023-08-07 16:48] VITALS: RESP 12; TEMP 97.7
[2023-08-07 17:25] LABS: Glucose,Whole Blood 222 mg/dL (70-110)
[2023-08-07] MEDS: INSULIN ASPART (NovoLOG) 100 UNIT/ML VIAL SQ SCH (17:33)
[2023-08-07 18:20] VITALS: PULSE 70
[2023-08-07 18:57] VITALS: BP 162/70
== END 2023-08-07 20:01 | disposition home or self-care (01) ==
LOC: CATHCVL 11:23 → 6NMEDSUR 14:24 → CATHCVL 20:01
PROVIDERS: ATTEND Surgery
DX: E11.51 Type 2 diabetes mellitus with diabetic peripheral angiopathy without gangrene (principal); L02.612 Cutaneous abscess of left foot; Z79.82 Long term (current) use of aspirin; Z79.84 Long term (current) use of oral hypoglycemic drugs; Z79.899 Other long term (current) drug therapy; Z89.432 Acquired absence of left foot
CPT/HCPCS: 36247; 75625; 75716; 76937; C1769 ×4; C1894; J2250; J2001; J3010

== ENCOUNTER 2023-09-10 06:57 | Day surgery (SDC) | payer MEDICARE ==
[~2023-09-10 06:57] MED LIST changes: +ALPRAZolam 0.5 MG TAB PO PRN; +HEPARIN SODIUM,PORCINE (1 ML) 2,500 UNIT in SODIUM CHLORIDE 0.9% 250 ML IRRIGATION PRN; +ZOLPIDEM 5 MG TAB PO PRN
[2023-09-10] MEDS: SODIUM CHLORIDE 0.9% 1,000 ML IV ONE (07:10)
[2023-09-10 07:29] VITALS: RESP 16; TEMP 97.7
[2023-09-10 07:33] LABS: Basophils # (A) 0.1 k/uL (0-0.2); Basophils % (A) 1 %; Eosinophils # (A) 0.5 k/uL (0-0.7); Eosinophils % (A) 6 %; HCT 43.6 % (39.0-53.0); HGB 13.8 gm/dL (13.0-17.5); Hypochromasia Moderate; Lymphocytes # (A) 2.1 k/uL (1.0-4.8); Lymphocytes % (A) 24 %; MCH 28.4 pg (25.0-35.0); MCHC 31.7 g/dL (31.0-37.0); MCV 89.7 fL (80.0-100.0); Mean Platelet Volume 9.2; Monocytes # (A) 0.5 k/uL (0-1.0); Monocytes % (A) 6 %; Neutrophils # (A) 5.7 k/uL (1.3-7.7); Neutrophils % (A) 63 %; Platelet Count 277 k/uL (150-450); RBC 4.86 m/uL (4.30-5.90); RDW 15.8 % (11.5-15.5)
[2023-09-10 07:35] LABS: Glucose,Whole Blood 177 mg/dL (70-110)
[2023-09-10 07:52] LABS: African American GFR (CKD) >90 (>60 ml/min/1.73 sqM); Anion Gap 7 mmol/L; Blood Urea Nitrogen 16 mg/dL (9-20); Calcium 9.5 mg/dL (8.4-10.2); Carbon Dioxide 20 mmol/L (22-30); Chloride 111 mmol/L (98-107); Glucose 183 mg/dL (74-99); Non-African American GFR(CKD) >90 (>60 ml/min/1.73 sqM); Potassium 4.8 mmol/L (3.5-5.1); Sodium 138 mmol/L (137-145)
[2023-09-10] MEDS: EMPTY BAG 1 BAG with SODIUM CHLORIDE 0.9% 1,000 ML IV SCH (09:29)
[2023-09-10] MEDS: LIDOCAINE 1% INJ 10MG/ML (20 ML MDV) SQ ONE (11:34)
[2023-09-10] MEDS: MIDAZOLAM 2 MG/2 ML VIAL IVP ONE (11:40)
[2023-09-10] MEDS: fentaNYL (PF) 50 MCG/ML 2 ML AMP IVP ONE (11:40)
[2023-09-10] MEDS: HEPARIN SODIUM,PORCINE 10,000 UNIT in SODIUM CHLORIDE 0.9% 1,000 ML IRRIGATION PRN (11:43)
[2023-09-10] MEDS: HEPARIN SODIUM 1,000 UN/ML (10ML VL) IVP ONE (11:59)
[2023-09-10] MEDS: IOPAMIDOL-370 100ML BTL INJ ONE (12:23)
--- NOTE | 2023-09-10 12:46 | IR ---
EXAMINATION TYPE: IR angio lower extremity LT DATE OF EXAM: 09/10/2023 COMPARISON: NONE HISTORY: Fluoroscopy time. Fluoroscopy was provided to the referring clinician.
--- NOTE | 2023-09-10 13:02 | P.OP ---
Date of Procedure: 09/10/23 Preoperative Diagnosis: 1: High-grade left superficial femoral artery stenosis. 2: Tibial artery occlusive disease. 3: Diabetic vascular disease with nonhealing ulceration of the left foot. Postoperative Diagnosis: Same. Procedure(s) Performed: 1: Ultrasound-guided cannulation left superficial femoral artery. 2: Left femoral angiogram. 3: Left superficial femoral artery atherectomy. 4: Balloon dilation distal left superficial femoral artery with drug-eluting balloon. Implants: None. Anesthesia: local (1% Xylocaine for local anesthesia as well as 2 mg of Versed and 50 mcg of fentanyl for moderate conscious sedation purposes.) Surgeon: Donald Bauer Estimated Blood Loss (ml): 10 Pathology: none sent Condition: stable Disposition: no change Indications for Procedure: Patient is a 73-year-old male with a longstanding history of diabetes mellitus who suffers from diabetic vascular disease. He had previously undergone a transmetatarsal amputation of the left foot multiple years prior however recently has been experiencing wounds of the left foot which would intermittently occur and then go on to heal and return again. Physical examination revealed femoral pulse however no pedal pulses were noted on the affected side. Patient did undergo diagnostic angiogram which demonstrated normal aorta iliac segments with the exception of extreme iliac artery tortuosity. The common and profundus femoris segments as well as the proximal SFA were all widely patent. Patient then demonstrated calcified atherosclerotic plaque at the mid SFA and adductor canal levels along with occlusion of the anterior tibial artery. It was felt that atherectomy/balloon dilation would be of significant benefit for the patient to improve the blood flow to help prevent recurrence of the wound. The procedure, risk and benefits were discussed with the patient. All questions were answered patient's satisfaction. Consent form was signed. Description of Procedure: Patient was brought to the special procedure suite. Both groins were sterilely prepped and draped in usual manner. It was decided to perform antegrade approach from the left femoral artery due to the extreme tortuosity of the iliac arteries and the anticipated difficulty of manipulating an atherectomy catheter through these tortuous segments. Patient received 50 mcg of fentanyl and 2 mg of Versed for moderate conscious sedation purposes. Utilizing ultrasound the proximal portion of the superficial femoral artery was identified. 1% Xylocaine was utilized for local anesthesia of the tissue overlying this arterial segment. Through this anesthetized area with the aid of ultrasound a micropuncture needle was utilized to cannulate the artery in a antegrade direction. Once cannulated a guidewire was advanced into the femoral artery. The needle was withdrawn and a micropuncture sheath and dilator were advanced over the guidewire. Guidewire and dilator were withdrawn and a 0.035 inch J-tip guidewire was advanced into the femoral artery. The micropuncture sheath was removed and exchanged for a 6 Kazakh sheath. Left femoral angiogram was performed. This demonstrated a highly stenotic and calcified segment of mid to distal SFA occurring over a distance of approximately 2 to 3 cm. Additionally a distal SFA stenosis estimated to be approximately 50% was identified. Under roadmapping technique guidewire was advanced into the femoral artery and through the stenotic segments and into the tibial peroneal trunk. The patient was systemically heparinized with 5000 units of heparin. [employer] atherectomy device was then selected and utilized to perform atherectomy of the mid to distal SFA stenotic area. Completion angiogram was performed demonstrating significant improvement in flow characteristics however some stenosis yet remained. As such a 7 mm x 60 mm balloon dilation catheter was selected and used balloon dilate this segment. Completion angiogram demonstrated significant improvement with no identifiable stenosis. Just above the popliteal artery level however a 50 to 60% stenosis was noted. This was balloon dilated with a 5 mm x 40 mm drug-eluting balloon. Completion angiogram demonstrated the segment now to be widely patent. Popliteal angiography was unremarkable. Tibial angiography demonstrated the anterior tibial artery to be occluded proximally and never was visualized. The tibial peroneal trunk and proximal portion of the anterior tibial artery were diseased however this did not appear to be flow-limiting. The peroneal artery filled via collaterals distally. It was not felt that any further intervention at this time would be necessary as it is thought that treating the SFA lesions would be sufficient to prevent new wounds from occurring. With the above findings noted guidewire and sheath was withdrawn and pressure was held at the puncture site until all evidence of bleeding ceased. Total conscious sedation time: 51 minutes. Total contrast volume utilized: 30 mL of Isovue-370. Total fluoroscopy time: 5.2 minutes. Plan - Discharge Summary Discharge Rx Participant: No New Discharge Prescriptions: No Action amLODIPine [Norvasc] 10 mg PO DAILY Atorvastatin [Lipitor] 40 mg PO DAILY Isosorbide Mononitrate ER [Imdur] 30 mg PO DAILY lisinopriL [Zestril] 10 mg PO BID-W/MEALS metFORMIN HCL [Glucophage] 1,000 mg PO BID-W/MEALS Metoprolol Tartrate [Lopressor] 50 mg PO BID-W/MEALS glyBURIDE [Diabeta] 5 mg PO BID-W/MEALS Tamsulosin HCl [Flomax] 0.4 mg PO BID-W/MEALS Aspirin 81 mg PO DAILY Finasteride [Proscar] 5 mg PO BID Famotidine [Pepcid] 40 mg PO DAILY Insulin Glargine,Hum.rec.anlog [Lantus Solostar Pen] 20 units SQ QAM Discharge Medication List Atorvastatin [Lipitor] 40 mg PO DAILY 05/10/19 [History] Isosorbide Mononitrate ER [Imdur] 30 mg PO DAILY 05/10/19 [History] Metoprolol Tartrate [Lopressor] 50 mg PO BID-W/MEALS 05/10/19 [History] amLODIPine [Norvasc] 10 mg PO DAILY 05/10/19 [History] lisinopriL [Zestril] 10 mg PO BID-W/MEALS 05/10/19 [History] metFORMIN HCL [Glucophage] 1,000 mg PO BID-W/MEALS 05/10/19 [History] Aspirin 81 mg PO DAILY 07/08/23 [History] Famotidine [Pepcid] 40 mg PO DAILY 07/08/23 [History] Finasteride [Proscar] 5 mg PO BID 07/08/23 [History] Tamsulosin HCl [Flomax] 0.4 mg PO BID-W/MEALS 07/08/23 [History] glyBURIDE [Diabeta] 5 mg PO BID-W/MEALS 07/08/23 [History] Insulin Glargine,Hum.rec.anlog [Lantus Solostar Pen] 20 units SQ QAM 09/09/23 [History] Follow up Appointment(s)/Referral(s): Donald Bauer DO [Doctor of Osteopathic Medicine] - 1 Week Patient Instructions/Handouts: *Surgery [facility] - After Heart Catheterization - Research Associate Policy Instructions, Peripheral Vascular Disease (DC), Moderate Sedation (DC), Peripheral Vascular Stent Placement (DC)
[2023-09-10 18:15] VITALS: BP 118/77; PULSE 69
== END 2023-09-10 17:33 | disposition home or self-care (01) ==
LOC: CATHCVL 06:57
PROVIDERS: ATTEND Surgery
DX: E11.59 Type 2 diabetes mellitus with other circulatory complications (principal); I70.245 Atherosclerosis of native arteries of left leg with ulceration of other part of foot; L97.529 Non-pressure chronic ulcer of other part of left foot with unspecified severity; E11.621 Type 2 diabetes mellitus with foot ulcer; Z79.4 Long term (current) use of insulin; Z79.82 Long term (current) use of aspirin; Z79.84 Long term (current) use of oral hypoglycemic drugs
CPT/HCPCS: 37225; 80048; 85025; C1894; C1769 ×4; C1725; C1714; C2623; J2250; J1644 ×2; J2001; J3010; Q9967